=== PATIENT | female | born 1940 | race Asian ===

== ENCOUNTER 2019-02-25 00:08 | Inpatient (IN) | payer MEDICARE ==
[2019-02-25] VITALS (17 sets, daily range): BP systolic 126–172; BP diastolic 51–73
[~2019-02-25] VITALS: Ht 154.9 cm; Wt 72.6 kg
[2019-02-25] MEDS ORDERED: Isovue-300 100ml vial INJ PRN (00:15)
[2019-02-25 00:33] LABS: BASOPHILS % (AUTO) 0.8 % (0.0-2.0); EOSINOPHILS % (AUTO) 5.7 % (0.0-3.0); HEMATOCRIT 33.7 % (37.0-47.0); LYMPHOCYTES % (AUTO) 29.7 % (20.0-45.0); MEAN CORPUSCULAR VOLUME 89 FL (80-99); MONOCYTES % (AUTO) 7.1 % (1.0-10.0); NEUTROPHILS % (AUTO) 56.9 % (45.0-75.0); PLATELET COUNT 485 K/UL (150-450); RED BLOOD COUNT 3.79 M/UL (4.20-5.40); RED CELL DISTRIBUTION WIDTH 15.1 % (11.6-14.8); WHITE BLOOD COUNT 17.8 K/UL (4.8-10.8)
[2019-02-25 00:45] LABS: ANION GAP 12 mmol/L (5-15); BLOOD UREA NITROGEN 13 mg/dL (7-18); CALCIUM 9.5 MG/DL (8.5-10.1); CARBON DIOXIDE 26 MMOL/L (21-32); CHLORIDE 101 MMOL/L (98-107); CREATININE 0.7 MG/DL (0.55-1.30); SODIUM 139 MMOL/L (136-145)
[2019-02-25 00:46] LABS: APPEARANCE,URINE CLEAR; BILIRUBIN, URINE NEGATIVE (NEGATIVE); COLOR,URINE PALE YELLOW; GLUCOSE, URINE (UA) NEGATIVE (NEGATIVE); KETONES,URINE NEGATIVE (NEGATIVE); LEUKOCYTE ESTERASE ,URINE 3+ (NEGATIVE); NITRITE,URINE NEGATIVE (NEGATIVE); PH,URINE 6 (4.5-8.0); PROTEIN,URINE 1+ (NEGATIVE); UROBILINOGEN,URINE NORMAL MG/DL (0.0-1.0)
[2019-02-25 00:58] LABS: ALANINE AMINOTRANSFERASE 21 U/L (12-78); ALBUMIN 2.5 G/DL (3.4-5.0); ALBUMIN/GLOBULIN RATIO 0.4 (1.0-2.7); ALKALINE PHOSPHATASE 87 U/L (46-116); ASPARTATE AMINO TRANSFERASE 24 U/L (15-37); BILIRUBIN,TOTAL 0.4 MG/DL (0.2-1.0); CKMB 0.7 NG/ML (0.0-3.6); CREATINE KINASE 30 U/L (26-308)
[2019-02-25] MEDS ORDERED: cefTRIAXone 1 GM in NS 55 ML IVPB ONE (01:15)
[2019-02-25] MEDS ORDERED: PROTONIX20 MG GT (02:55)
[2019-02-25] MEDS ORDERED: SUCRALFATE1 GM/10 ML GT (02:55)
[2019-02-25] MEDS ORDERED: AMIODARONE HCL100 MG GT (02:55)
[2019-02-25] MEDS ORDERED: COMBIVENT RESPIM4 GM IH (02:55)
[2019-02-25] MEDS ORDERED: ACETAMINOPHEN325 M1 GT (02:55)
[2019-02-25] MEDS ORDERED: APRESOLINE10 MG GT (02:55)
[2019-02-25] MEDS ORDERED: AMLODIPINE BESYL5 MG GT (02:55)
[2019-02-25] MEDS ORDERED: MULTIVITAMINS1 EA13 GT (02:55)
[2019-02-25] MEDS ORDERED: ASCORBIC ACID500 MG GT (02:55)
--- NOTE | 2019-02-25 02:59 | Diagnostic Imaging Report ---
Clinical Indication: Abdominal distention for 3 days Technique: No oral contrast utilized, per emergency room physician request IV administration nonionic contrast. Venous phase spiral acquisition obtained through the abdomen and pelvis. Multiplanar reconstructions were generated. Total dose length product 898.21 mGycm. CTDIvol(s) 19.51 mGy. Dose reduction achieved using automated exposure control Comparison: none Findings: The colon is diffusely partially distended with gas and fluid, with a few intervening areas of normal caliber. There is a surgical anastomotic staple line in the ascending colon. There is free communication of the colon lumen with the lumen of the distal small bowel. The small bowel is diffusely distended with gas without any evidence of transition point. There is no normal caliber small bowel other than the proximal jejunum. There is a retroperitoneal collection which measures 4 cm transverse by approximately 1.4 cm AP by 11 cm craniocaudad. A pigtail catheter is located in the cephalad aspect of this collection. No bowel pneumatosis demonstrated. No free intraperitoneal gas. There is a gastrostomy in good position within the stomach. The distal esophagus and duodenum are unremarkable. The liver demonstrates a cyst in segment 3 that measures 2.5 cm diameter. A subcentimeter low-attenuation lesion is seen in segment 8 and another in segment one. The gallbladder, bile ducts, pancreas, spleen, adrenals, kidneys are all unremarkable. The bladder is empty, contains a Abdi catheter. Uterus and adnexal structures are unremarkable. No pelvic mass or adenopathy. The included lung bases demonstrate areas of atelectasis and consolidation and possibly some scarring. The bones demonstrate degenerative spondylosis changes. Impression: The colon is mostly distended with gas and fluid with areas of normal caliber, no definite obstructive lesion. There is diffuse marked distention of the small bowel with free communication of the distended distal small bowel lumen with the colon lumen. Findings are presumably functional in nature, as no obstructive lesion or transition point is demonstrated Evidence of prior proximal colectomy with ileocolic anastomosis Right lower quadrant retroperitoneal collection, with a pigtail drainage catheter at the cephalad aspect, consistent with a recently drained abscess. There may be a small amount of residual material within the collection Basilar or parenchymal atelectatic changes and possible consolidation Hepatic cyst. Hepatic subcentimeter low-attenuation lesions which are too small to characterize, most likely benign simple cysts. Other findings as noted, including gastrostomy, Abdi catheter, degenerative spondylosis This essentially agrees with the preliminary interpretation provided overnight by [facility] teleradiology service, with some additional findings. The CT scanner at [facility] is accredited by the [employer] and the scans are performed using protocols designed to limit radiation exposure to as low as reasonably achievable to attain images of sufficient resolution adequate for diagnostic evaluation.
[2019-02-25] MEDS ORDERED: Zosyn 3.375gm inj ONE (03:21)
--- NOTE | 2019-02-25 03:27 | Emergency Room Report ---
History of Present Illness General Chief Complaint: Fever Source: Medical Record, EMS Present Illness HPI 79-year-old female presents ED for evaluation. Brought in by EMS from senior care facility. Reportedly has fever x1 day. Abdominal distention. Trach/ vent with G-tube. Patient nonverbal at baseline. No signs of distress upon arrival. No reported shortness of breath nausea or vomiting. No other aggravating relieving factors. No other associated symptoms Allergies: Coded Allergies: No Known Allergies (Unverified , 02/25/19) Patient History Past Medical History: HTN, AFib, other - Gtube/trach Past Surgical History: none Pertinent Family History: none Social History: Denies: smoking, alcohol use, drug use Now: No Immunizations: UTD Reviewed Nursing Documentation: PMH: Agreed; PSxH: Agreed Nursing Documentation-PMH Past Medical History: No History, Except For Hx Cardiac Problems: Yes - AFIB Hx Hypertension: Yes Hx COPD: No - VENT DEPENDENT, RESP FAILURE, TRACHEOSTOM Hx Gastrointestinal Problems: Yes - GASTROSTOMY, UROGENITAL IMPLANT History Of Psychiatric Problem: No - PRESSURE ULCER OF SACRAL, RIGHT HEEL Review of Systems All Other Systems: limited Physical Exam Vital Signs Date Time Temp Pulse Resp B/P (MAP) Pulse Ox O2 Delivery O2 Flow Rate FiO2 02/25/19 00:03 99.1 95 28 147/74 (98) 100 Mechanical Ventilator 02/25/19 00:10 15.0 40 Sp02 EP Interpretation: reviewed, normal General Appearance: no apparent distress Head: normocephalic Eyes: bilateral eye normal inspection, bilateral eye PERRL ENT: hearing grossly normal, normal pharynx, no angioedema, normal voice Neck: full range of motion, supple/symm/no masses, tracheotomy Respiratory: chest non-tender, normal breath sounds, crackles, speaking full sentences Cardiovascular #1: regular rate, rhythm, no edema Gastrointestinal: distended, other - Gtube Rectal: deferred Genitourinary: no CVA tenderness Musculoskeletal: normal inspection Neurologic: other - nonverbal Psychiatric: other - nonverbal Skin: other - see nursing notes Lymphatic: normal inspection Medical Decision Making Diagnostic Impression: Primary Impression: UTI (urinary tract infection) Qualified Codes: N39.0 - Urinary tract infection, site not specified Additional Impressions: Abdominal distension Pneumonia Qualified Codes: J18.1 - Lobar pneumonia, unspecified organism Abdominal abscess ER Course hospital Course 79-year-old F presents to ED with abdominal distension, fever Differential diagnosis includes-appendicitis, cholecystitis, small bowel obstruction, gastritis, Clinical course Patient placed on stretcher. After initial history and physical I ordered labs , IV fluids, EKG, CXR and CT scan Labs - noted leukocytosis, K 3.0, , UA+ bacteria EKG - NSr, no acute ischemic changes interpreted by me CXR - LLL infiltrate CT - abscess in RLQ with pigtail adjacent. dilated loops - ileus vs ogilvies Antibiotics given. IV fluids given. Potassium repleted. Dr Stone contacted. Patient will be admitted to Dr Lr's service I feel this is a highly complex case requiring extensive working including EKG/ Rhythm strip, Xray/CT/US, Blood/urine lab work, repeat exams while in ED, and administration of strong opiates/narcotics for pain control, admission to hospital or close patient follow up. Diagnosis - UTI, abdominal distension, pneumonia, abdominal abscess admitted to SDU in serious condition Labs Test 02/25/19 00:10 02/25/19 00:30 White Blood Count 17.8 K/UL (4.8-10.8) Red Blood Count 3.79 M/UL (4.20-5.40) Hemoglobin 11.0 G/DL (12.0-16.0) Hematocrit 33.7 % (37.0-47.0) Mean Corpuscular Volume 89 FL (80-99) Mean Corpuscular Hemoglobin 29.1 PG (27.0-31.0) Mean Corpuscular Hemoglobin Concent 32.8 G/DL (32.0-36.0) Red Cell Distribution Width 15.1 % (11.6-14.8) Platelet Count 485 K/UL (150-450) Mean Platelet Volume 4.8 FL (6.5-10.1) Neutrophils (%) (Auto) 56.9 % (45.0-75.0) Lymphocytes (%) (Auto) 29.7 % (20.0-45.0) Monocytes (%) (Auto) 7.1 % (1.0-10.0) Eosinophils (%) (Auto) 5.7 % (0.0-3.0) Basophils (%) (Auto) 0.8 % (0.0-2.0) Sodium Level 139 MMOL/L (136-145) Potassium Level 3.0 MMOL/L (3.5-5.1) Chloride Level 101 MMOL/L (98-107) Carbon Dioxide Level 26 MMOL/L (21-32) Anion Gap 12 mmol/L (5-15) Blood Urea Nitrogen 13 mg/dL (7-18) Creatinine 0.7 MG/DL (0.55-1.30) Estimat Glomerular Filtration Rate mL/min (>60) Glucose Level 112 MG/DL (74-106) Lactic Acid Level 1.40 mmol/L (0.4-2.0) Calcium Level 9.5 MG/DL (8.5-10.1) Total Bilirubin 0.4 MG/DL (0.2-1.0) Aspartate Amino Transf (AST/SGOT) 24 U/L (15-37) Alanine Aminotransferase (ALT/SGPT) 21 U/L (12-78) Alkaline Phosphatase 87 U/L (46-116) Total Creatine Kinase 30 U/L (26-308) Creatine Kinase MB 0.7 NG/ML (0.0-3.6) Creatine Kinase MB Relative Index 2.3 Troponin I 0.000 ng/mL (0.000-0.056) Pro-B-Type Natriuretic Peptide 349 pg/mL (0-125) Total Protein 8.5 G/DL (6.4-8.2) Albumin 2.5 G/DL (3.4-5.0) Globulin 6.0 g/dL Albumin/Globulin Ratio 0.4 (1.0-2.7) Urine Color Pale yellow Urine Appearance Clear Urine pH 6 (4.5-8.0) Urine Specific [place] 1.010 (1.005-1.035) Urine Protein 1+ (NEGATIVE) Urine Glucose (UA) Negative (NEGATIVE) Urine Ketones Negative (NEGATIVE) Urine Blood Negative (NEGATIVE) Urine Nitrite Negative (NEGATIVE) Urine Bilirubin Negative (NEGATIVE) Urine Urobilinogen Normal MG/DL (0.0-1.0) Urine Leukocyte Esterase 3+ (NEGATIVE) Urine RBC 0-2 /HPF (0 - 2) Urine WBC 40-60 /HPF (0 - 2) Urine Squamous Epithelial Cells Few /LPF (NONE/OCC) Urine Bacteria Moderate /HPF (NONE) EKG Diagnostic Results Rate: normal Rhythm: NSR ST Segments: no acute changes ASA given to the pt in ED: No Rhythm Strip Diag. Results EP Interpretation: yes Rhythm: NSR, no PVC's, no ectopy Chest X-Ray Diagnostic Results Chest X-Ray Diagnostic Results : Chest X-Ray Ordered: Yes # of Views/Limited/Complete: 1 View Indication: Other EP Interpretation: Yes Interpretation: no pneumothorax, other - consolidation LLL Impression: Other - pneumonia Electronically Signed by: Electronically signed by Tony Wells MD CT/MRI/US Diagnostic Results CT/MRI/US Diagnostic Results : Imaging Test Ordered: CT A/P Impression 7 x 1.7 x 4.4 cm abscess in the right lower quadrant. The tip of the pigtail catheter is just superior to this fluid collection. Diffusely dilated loops of colon, with some areas of narrowing. May represent ileus, also consider Jason's syndrome. No definite small bowel obstruction. G-tube is in place. Last Vital Signs Date Time Temp Pulse Resp B/P (MAP) Pulse Ox O2 Delivery O2 Flow Rate FiO2 02/25/19 03:14 98.5 83 19 126/51 100 Trach Collar 15.0 40 Status: improved Disposition: ADMITTED INPATIENT Condition: Serious Referrals: Kike Lr MD (PCP) Tony Wells MD Feb 25, 2019 03:27
[2019-02-25] MEDS ORDERED: Piperacillin/Tazobactam 3.375 GM in NS 110 ML IVPB ONE (03:30)
[2019-02-25] MEDS ORDERED: IPRAT-ALBUT 0.5-3 ML IH (03:57)
[2019-02-25] MEDS ORDERED: HYDRALAZINE HCL10 MG GT (05:11)
[2019-02-25] MEDS ORDERED: DUONEB 0.5-3(2.53 ML HHN (05:11)
[2019-02-25] MEDS ORDERED: PROTONIX40 M2 GT (05:11)
--- NOTE | 2019-02-25 07:23 | Pulmonology Progress Note ---
Assessment/Plan Assessment/Plan Pulmonary Consultation HPI Patient is an 79-year old woman admitted from a snf facility. Has had fevers for 1 day. Abdominal distention. Patient has a history of trach/ vent with G-tube. Patient nonverbal at baseline. No signs of distress upon arrival. No reported shortness of breath nausea or vomiting. No other associated symptoms Allergies: No Known Allergies Past Medical History: Hypertension, atrial fibrillation, respiratory failure, Gtube/trach, urogenital implant, decubitus ulcers All Other Systems: limited Physical Exam Vital Signs Noted Date Time Temp Pulse Resp B/P (MAP) Pulse Ox O2 Delivery O2 Flow Rate FiO2 02/25/19 00:03 99.1 95 28 147/74 (98) 100 Mechanical Ventilator 02/25/19 00:10 15.0 40 General Appearance: chronically ill appearing, no apparent distress Head: normocephalic Eyes: bilateral eye normal inspection, bilateral eye PERRL ENT: normal pharynx, moist mm Neck: full range of motion, supple/symm/no masses, tracheotomy, no LN Respiratory: chest non-tender, normal breath sounds, occasional rhonchi Cardiovascular: regular rate, rhythm, no edema Gastrointestinal: distended, other - Gtube Genitourinary: no CVA tenderness Musculoskeletal: weak Neurologic: no focal signs, no seizures Impression: Abdominal abscess, drain not in abscess cavity UTI (urinary tract infection) Abdominal distension Pneumonia Hypertension Atrial fibrillation Respiratory failure Gtube/trach Urogenital implant Decubitus ulcers Plan IV antibiotics SERVICES DELIVERY DRIVER medications Wound team IR repositioning of abscess drain Supplement K Monitor labs ABG AC ventilator settings Dr Stone contacted by ED. Labs Test 02/25/19 00:10 02/25/19 00:30 White Blood Count 17.8 K/UL (4.8-10.8) Red Blood Count 3.79 M/UL (4.20-5.40) Hemoglobin 11.0 G/DL (12.0-16.0) Hematocrit 33.7 % (37.0-47.0) Mean Corpuscular Volume 89 FL (80-99) Mean Corpuscular Hemoglobin 29.1 PG (27.0-31.0) Mean Corpuscular Hemoglobin Concent 32.8 G/DL (32.0-36.0) Red Cell Distribution Width 15.1 % (11.6-14.8) Platelet Count 485 K/UL (150-450) Mean Platelet Volume 4.8 FL (6.5-10.1) Neutrophils (%) (Auto) 56.9 % (45.0-75.0) Lymphocytes (%) (Auto) 29.7 % (20.0-45.0) Monocytes (%) (Auto) 7.1 % (1.0-10.0) Eosinophils (%) (Auto) 5.7 % (0.0-3.0) Basophils (%) (Auto) 0.8 % (0.0-2.0) Sodium Level 139 MMOL/L (136-145) Potassium Level 3.0 MMOL/L (3.5-5.1) Chloride Level 101 MMOL/L (98-107) Carbon Dioxide Level 26 MMOL/L (21-32) Anion Gap 12 mmol/L (5-15) Blood Urea Nitrogen 13 mg/dL (7-18) Creatinine 0.7 MG/DL (0.55-1.30) Estimat Glomerular Filtration Rate mL/min (>60) Glucose Level 112 MG/DL (74-106) Lactic Acid Level 1.40 mmol/L (0.4-2.0) Calcium Level 9.5 MG/DL (8.5-10.1) Total Bilirubin 0.4 MG/DL (0.2-1.0) Aspartate Amino Transf (AST/SGOT) 24 U/L (15-37) Alanine Aminotransferase (ALT/SGPT) 21 U/L (12-78) Alkaline Phosphatase 87 U/L (46-116) Total Creatine Kinase 30 U/L (26-308) Creatine Kinase MB 0.7 NG/ML (0.0-3.6) Creatine Kinase MB Relative Index 2.3 Troponin I 0.000 ng/mL (0.000-0.056) Pro-B-Type Natriuretic Peptide 349 pg/mL (0-125) Total Protein 8.5 G/DL (6.4-8.2) Albumin 2.5 G/DL (3.4-5.0) Globulin 6.0 g/dL Albumin/Globulin Ratio 0.4 (1.0-2.7) Urine Color Pale yellow Urine Appearance Clear Urine pH 6 (4.5-8.0) Urine Specific [place] 1.010 (1.005-1.035) Urine Protein 1+ (NEGATIVE) Urine Glucose (UA) Negative (NEGATIVE) Urine Ketones Negative (NEGATIVE) Urine Blood Negative (NEGATIVE) Urine Nitrite Negative (NEGATIVE) Urine Bilirubin Negative (NEGATIVE) Urine Urobilinogen Normal MG/DL (0.0-1.0) Urine Leukocyte Esterase 3+ (NEGATIVE) Urine RBC 0-2 /HPF (0 - 2) Urine WBC 40-60 /HPF (0 - 2) Urine Squamous Epithelial Cells Few /LPF (NONE/OCC) Urine Bacteria Moderate /HPF (NONE) EKG: Rate: normal Rhythm: NSR ST Segments: no acute changes Chest X-Ray: no pneumothorax, other - consolidation LLL CT Abdomen and Pelvis: 7 x 1.7 x 4.4 cm abscess in the right lower quadrant. The tip of the pigtail catheter is just superior to this fluid collection. Diffusely dilated loops of colon, with some areas of narrowing. May represent ileus, also consider Jason's syndrome. No definite small bowel obstruction. G-tube is in place. Subjective ROS Limited/Unobtainable: No Constitutional: Reports: fever Allergies: Coded Allergies: No Known Allergies (Unverified , 02/25/19) Objective Last 24 Hour Vital Signs Date Time Temp Pulse Resp B/P (MAP) Pulse Ox O2 Delivery O2 Flow Rate FiO2 02/25/19 05:05 81 19 40 02/25/19 04:39 81 02/25/19 04:30 Mechanical Ventilator 02/25/19 04:30 40 02/25/19 04:15 99.5 81 137/60 (85) 02/25/19 04:10 98.8 87 18 137/67 100 Trach Collar 15.0 40 02/25/19 03:14 98.5 83 19 126/51 100 Trach Collar 15.0 40 02/25/19 02:30 82 22 40 02/25/19 00:10 91 18 02/25/19 00:10 78 25 100 Mechanical Ventilator 15.0 40 02/25/19 00:10 78 25 40 02/25/19 00:10 98.7 96 18 147/56 100 Trach Collar 15.0 40 02/25/19 00:03 99.1 95 28 147/74 (98) 100 Mechanical Ventilator Intake and Output 02/24/19 02/25/19 19:00 07:00 Intake Total 1947.55 ml Output Total 805 ml Balance 1142.55 ml Intake Oral 0 ml IV Total 1947.55 ml Output Urine Total 800 ml Drainage Total 5 ml # Bowel Movements 1 Laboratory Tests 02/25/19 00:10: White Blood Count 17.8H, Red Blood Count 3.79L, Hemoglobin 11.0L, Hematocrit 33.7L, Mean Corpuscular Volume 89, Mean Corpuscular Hemoglobin 29.1, Mean Corpuscular Hemoglobin Concent 32.8, Red Cell Distribution Width 15.1H, Platelet Count 485H, Mean Platelet Volume 4.8L, Neutrophils (%) (Auto) 56.9, Lymphocytes (%) (Auto) 29.7, Monocytes (%) (Auto) 7.1, Eosinophils (%) (Auto) 5.7H, Basophils (%) (Auto) 0.8, Sodium Level 139, Potassium Level 3.0L, Chloride Level 101, Carbon Dioxide Level 26, Anion Gap 12, Blood Urea Nitrogen 13, Creatinine 0.7, Estimat Glomerular Filtration Rate , Glucose Level 112H, Lactic Acid Level 1.40, Calcium Level 9.5, Total Bilirubin 0.4, Aspartate Amino Transf (AST/SGOT) 24, Alanine Aminotransferase (ALT/SGPT) 21, Alkaline Phosphatase 87, Total Creatine Kinase 30, Creatine Kinase MB 0.7, Creatine Kinase MB Relative Index 2.3, Troponin I 0.000, Pro-B-Type Natriuretic Peptide 349H, Total Protein 8.5H, Albumin 2.5L, Globulin 6.0, Albumin/Globulin Ratio 0.4L 02/25/19 00:30: Urine Color Pale yellow, Urine Appearance Clear, Urine pH 6, Urine Specific [place] 1.010, Urine Protein 1+H, Urine Glucose (UA) Negative, Urine Ketones Negative, Urine Blood Negative, Urine Nitrite Negative, Urine Bilirubin Negative , Urine Urobilinogen Normal, Urine Leukocyte Esterase 3+H, Urine RBC 0-2, Urine WBC 40-60H, Urine Squamous Epithelial Cells Few, Urine Bacteria ModerateH Current Medications Medications (Trade) Dose Ordered Sig/Oz Route PRN Reason Start Time Stop Time Status Last Admin Dose Admin Acetaminophen (Tylenol) 650 mg Q4H PRN GT Mild Pain/Temp > 100.5 02/25/19 07:00 03/27/19 06:59 UNV Iopamidol (Isovue-300 100ml) 100 ml NOW PRN INJ Radiology Procedure 02/25/19 00:15 Piperacillin Sod/ Tazobactam Sod 3.375 gm/Sodium Chloride 110 ml @ 27.5 mls/hr Q6HR IVPB 02/25/19 12:00 03/04/19 11:59 UNV Vancomycin HCl (Vanco rx to dose) 1 ea DAILY PRN MISC Per rx protocol 02/25/19 07:00 03/27/19 06:59 UNV Raúl Ledbetter MD Feb 25, 2019 07:23
[2019-02-25] MEDS ORDERED: HydrALAZINE 10mg Tab GT PRN ×2 (07:45→08:15)
[2019-02-25] MEDS ORDERED: Albuterol/Ipratropium 3ml neb HHN PRN (07:45)
[2019-02-25] MEDS ORDERED: Lidocaine 1% Plain 30 ml INJ PRN (08:15)
--- NOTE | 2019-02-25 08:59 | History and Physical Report ---
DATE OF ADMISSION: 02/25/2019 CHIEF COMPLAINT: Fevers and abdominal distention. HISTORY OF PRESENT ILLNESS: The patient is an 79-year-old female. She has a history of chronic respiratory failure, tracheostomy, and G-tube. She has a prior history of an abscess and has a drain in the right upper quadrant. [facility] with complaints of fevers and elevated white count. On evaluation in the emergency room, the patient was noted to have a white count of 18,000. CT scan of the abdomen showed diffusely dilated loops of colon, 7 x 4 cm abscess in the right upper quadrant. The tip of the pigtail catheter was superior to the fluid collection. The patient is now admitted for further evaluation and care. PAST MEDICAL HISTORY: As above. PAST SURGICAL HISTORY: Includes a trach and a G-tube. CURRENT MEDICATIONS: Reconciled and reviewed. ALLERGIES: None. FAMILY HISTORY: None. SOCIAL HISTORY: There is no known history of tobacco, ethanol, or drugs. The patient is unable to provide any history, as she is poorly responsive at baseline. PHYSICAL EXAMINATION: VITAL SIGNS: Temperature 99.5, pulse 81, respirations 19, and blood pressure 137/60. GENERAL: The patient is a chronically ill-appearing female, in no apparent distress. NECK: Trach site is clean, in midline. HEART: Regular rate and rhythm. LUNGS: Clear. ABDOMEN: Soft, slightly distended. There is a drain in the right upper quadrant noted draining serosanguineous fluid. EXTREMITIES: Without clubbing or cyanosis. LABORATORY DATA: Potassium is 3. White count 18,000. ASSESSMENT: This is an 79-year-old female admitted with complaints of fevers and abdominal distention. She has dilated loops noted on the CAT scan and her abscess with a drain appears to be slightly dislodged. PLAN: We will place a pigtail catheter for abscess, IV antibiotics. Follow up pending cultures. NPO, on IV hydration. Serial abdominal exams. Consider GI evaluation. Efrain Radford M.D. DR: MIGUEL JOB#: [id number] CC:
[2019-02-25] MEDS: Ascorbic Acid 500mg tab GT SCH (09:34)
[2019-02-25] MEDS ORDERED: Vancomycin 1.25gm Premix IVPB ONE (10:00)
--- NOTE | 2019-02-25 10:54 | CDS Physician Query ---
Clarification is required for compliance, coding accuracy, and to reflect severity of illness for this patient Dear Raúl Enrique Date: 02/25/2019 According to the clinical indications above, please indicate below the condition In Progress notes: Abdominal abscess, PNA, UTI Labs: WBC: 17.8 Tx: IV VANCOMYCIN, IV Piperacillin/Tazobactam PHYSICIAN RESPONSE: X Sepsis SIRS SIRS with organ dysfunction Septic Shock Not applicable Other: Present on Admission: Yes X No Clinically Undetermined Physician signature Date Please also document in your Progress Notes and/or Discharge Summary and indicate if the condition was present on admission. VICKEYD
--- NOTE | 2019-02-25 12:43 | Diagnostic Imaging Report ---
Indication: Shortness of breath Technique: One view of the chest Comparison: none Findings: There is a tracheostomy. There is bilateral interstitial disease, diffuse on the left and basilar on the right. Heart size is normal. Pleural spaces are clear. No focal airspace consolidation Impression: Bilateral interstitial disease, could be on the basis of senescent changes and fibrosis but could also indicate pulmonary edema or atypical pneumonia Tracheostomy
[2019-02-25] MEDS ORDERED: D5 1/2NS 1,000 ML IV SCH (13:00)
[2019-02-25] MEDS: Piperacillin/Tazobactam 3.375 GM in NS 110 ML IVPB SCH ×2 (13:15→22:15)
[2019-02-25] MEDS: Amiodarone 200mg tab GT SCH ×2 (13:15→22:15)
[2019-02-25] MEDS ORDERED: fentaNYL 100 mcg/2 mL IV ONE (13:30)
[2019-02-25] MEDS ORDERED: Midazolam 2mg/2ml Inj ONE (13:30)
--- NOTE | 2019-02-25 15:37 | Pre-Procedure Note/Attestation ---
Pre-Procedure Note/Attestation Complete Prior to Procedure Planned Procedure: right Procedure Narrative: Drainage catheter exchange Indications for Procedure Pre-Operative Diagnosis: Retroperitoneal abscess R Attestation I attest that I discussed the nature of the procedure; its benefits; risks and complications; and alternatives (and the risks and benefits of such alternatives ), prior to the procedure, with the patient (or the patient's legal patient admitting representative). I attest that, if there was a reasonable possibility of needing a blood transfusion, the patient (or the patient's legal patient admitting representative) was given the [facility] standardized written summary, pursuant to the [place] Blood Safety Act ([place] Health and Safety Code # 1645, as amended). I attest that I re-evaluated the patient just prior to the surgery and that there has been no change in the patient's H&P, except as documented below: Pop Zepeda MD Feb 25, 2019 15:37
--- NOTE | 2019-02-25 15:46 | Brief Operative Note ---
Immediate Post Operative Note Operative Note Pre-op Diagnosis: Retroperitoneal abscess R Procedure: drainage catheter exchange Post-op Diagnosis: same Surgeon: Ang Campos Anesthesia: local Specimen: yes - small amt. bloody fluid sent to lab Complications: none Fluids: none Drains: other - 8.5 F pigtail Implant(s) used?: No Pop Campos MD Feb 25, 2019 15:46
--- NOTE | 2019-02-25 17:34 | Diagnostic Imaging Report ---
Indication: Abdominal abscess on prior CT scan Technique: Informed consent obtained prior concern of the procedure. Procedure timeout performed. Prior imaging studies reviewed. Spiral localizing acquisitions obtained through the pelvis. Intended puncture site marked, sterilely prepped and draped. Local anesthesia with 1% lidocaine. Previous drainage catheter was cut, and a guidewire was inserted through it and the drain was removed. Attempts made at manipulating a guidewire and a new drainage catheters deep within the abscess is possible. The catheter was forcibly aspirated, yielding only a small amount of bloody fluid. The catheter was placed to UreSil wall drainage. Specimen was sent to the lab for microbial analysis. The patient tolerated the procedure well, without immediate complication. Total dose length product 1940 mGycm. CTDIvol(s) 17, 15, 18 x 4 mGy. Radiation dose was minimized using automated exposure control Comparison: Reference made to CT scan of 13 hours earlier Findings: Completion image demonstrates satisfactory position of the new drainage catheter note that the inferior aspect of the collection could not be accessed. However, it is not clear that this either represents fluid, is represents scar tissue. Impression: Successful replacement of right retroperitoneal collection drainage catheter, placed slightly deeper into the collection and previously. Only a scant amount of bloody fluid aspirated. The specimen was sent to the lab Findings and procedure discussed by phone with Dr. Ledbetter The CT scanner at [facility] is accredited by the [employer] and the scans are performed using protocols designed to limit radiation exposure to as low as reasonably achievable to attain images of sufficient resolution adequate for diagnostic evaluation.
--- NOTE | 2019-02-25 19:32 | Consultation ---
History of Present Illness General Chief Complaint: Fever Present Illness HPI 79-year-old female presented to ED at [facility] for evaluation and was [facility]. Pre report patient had fever x1 day. Abdominal distention. Trach/vent with G-tube. Patient nonverbal at baseline. No signs of distress upon arrival. lab noted. CT as below. surgery called to evaluate. patient seen, chart reviewed, patient examined. patient with catheter and unsure duration or why placed. Allergies: Coded Allergies: No Known Allergies (Unverified , 02/25/19) Medication History Scheduled Amiodarone Hcl (Amiodarone Hcl), 200 MG GT EVERY 8 HOURS, (Reported) Amlodipine Besylate* (Amlodipine Besylate*), 5 MG GT BID, (Reported) Ascorbic Acid* (Ascorbic Acid*), 5 ML GT DAILY, (Reported) Multivitamin with Minerals (Multivitamins with Minerals), 5 ML GT DAILY, ( Reported) Pantoprazole Sodium (Protonix), 40 MG GT Q12HR, (Reported) Sucralfate (Sucralfate), 1 GM GT Q6H, (Reported) Scheduled PRN Acetaminophen* (Acetaminophen 325MG Tablet*), 650 MG GT Q6H PRN for Mild Pain/ Temp > 100.5, (Reported) Hydralazine Hcl* (Hydralazine Hcl*), 10 MG GT EVERY 6 HOURS PRN for For High Blood Pressure, (Reported) Ipratropium/Albuterol Sulfate (DuoNeb 0.5-3(2.5)mg/3ml), 3 ML HHN Q4HR PRN for Shortness of Breath, (Reported) Patient History Limited by: medical condition History Provided By: Medical Record, PMD Healthcare decision maker Resuscitation status Do Not Resuscitate Advanced Directive on File Past Medical/Surgical History Past Medical/Surgical History: (1) UTI (urinary tract infection) (2) Pneumonia (3) Abdominal distension (4) Abdominal abscess (5) Decubitus skin ulcer Review of Systems ROS Narrative cannot obtain given medical condition Physical Exam General Appearance: no apparent distress Lines, tubes and drains: peripheral HEENT: normocephalic Neck: other Respiratory/Chest: no respiratory distress, no accessory muscle use, decreased breath sounds, other Cardiovascular/Chest: regular rhythm Abdomen: non tender, soft, decreased bowel sounds, distended Extremities: normal inspection, other Skin Exam: warm/dry Neurologic: unresponsiveness Last 24 Hour Vital Signs Date Time Temp Pulse Resp B/P (MAP) Pulse Ox O2 Delivery O2 Flow Rate FiO2 02/25/19 16:53 83 18 40 02/25/19 16:20 87 20 02/25/19 16:00 98.1 84 137/65 (89) 02/25/19 16:00 40 02/25/19 16:00 88 02/25/19 16:00 Mechanical Ventilator 02/25/19 15:50 86 142/62 (88) 02/25/19 15:45 88 157/62 (93) 02/25/19 15:40 89 170/63 (98) 02/25/19 15:35 89 167/69 (101) 02/25/19 15:30 88 172/71 (104) 02/25/19 15:25 83 153/67 (95) 02/25/19 15:20 82 162/73 (102) 02/25/19 15:15 98.8 87 161/67 (98) 02/25/19 15:05 98.2 02/25/19 14:47 85 21 40 02/25/19 13:26 82 16 40 02/25/19 12:00 99.0 88 134/57 (82) 02/25/19 12:00 82 02/25/19 12:00 Mechanical Ventilator 02/25/19 12:00 40 02/25/19 11:29 83 19 40 02/25/19 09:34 80 133/60 02/25/19 09:20 80 20 40 02/25/19 08:00 75 02/25/19 08:00 Mechanical Ventilator 02/25/19 08:00 98.4 78 133/60 (84) 02/25/19 07:39 85 22 40 02/25/19 05:05 81 19 40 02/25/19 04:39 81 02/25/19 04:30 Mechanical Ventilator 02/25/19 04:30 40 02/25/19 04:15 99.5 81 137/60 (85) 02/25/19 04:10 98.8 87 18 137/67 100 Trach Collar 15.0 40 02/25/19 03:14 98.5 83 19 126/51 100 Trach Collar 15.0 40 02/25/19 02:30 82 22 40 02/25/19 00:10 91 18 02/25/19 00:10 78 25 100 Mechanical Ventilator 15.0 40 02/25/19 00:10 78 25 40 02/25/19 00:10 98.7 96 18 147/56 100 Trach Collar 15.0 40 02/25/19 00:03 99.1 95 28 147/74 (98) 100 Mechanical Ventilator Intake and Output 02/24/19 02/25/19 19:00 07:00 Intake Total 1947.55 ml Output Total 805 ml Balance 1142.55 ml Intake Oral 0 ml IV Total 1947.55 ml Output Urine Total 800 ml Drainage Total 5 ml # Bowel Movements 1 Laboratory Tests Test 02/25/19 00:10 02/25/19 00:30 02/25/19 06:53 02/25/19 07:45 White Blood Count 17.8 K/UL (4.8-10.8) H Red Blood Count 3.79 M/UL (4.20-5.40) L Hemoglobin 11.0 G/DL (12.0-16.0) L Hematocrit 33.7 % (37.0-47.0) L Mean Corpuscular Volume 89 FL (80-99) Mean Corpuscular Hemoglobin 29.1 PG (27.0-31.0) Mean Corpuscular Hemoglobin Concent 32.8 G/DL (32.0-36.0) Red Cell Distribution Width 15.1 % (11.6-14.8) H Platelet Count 485 K/UL (150-450) H Mean Platelet Volume 4.8 FL (6.5-10.1) L Neutrophils (%) (Auto) 56.9 % (45.0-75.0) Lymphocytes (%) (Auto) 29.7 % (20.0-45.0) Monocytes (%) (Auto) 7.1 % (1.0-10.0) Eosinophils (%) (Auto) 5.7 % (0.0-3.0) H Basophils (%) (Auto) 0.8 % (0.0-2.0) Sodium Level 139 MMOL/L (136-145) Potassium Level 3.0 MMOL/L (3.5-5.1) L Chloride Level 101 MMOL/L (98-107) Carbon Dioxide Level 26 MMOL/L (21-32) Anion Gap 12 mmol/L (5-15) Blood Urea Nitrogen 13 mg/dL (7-18) Creatinine 0.7 MG/DL (0.55-1.30) Estimat Glomerular Filtration Rate mL/min (>60) Glucose Level 112 MG/DL (74-106) H Lactic Acid Level 1.40 mmol/L (0.4-2.0) Calcium Level 9.5 MG/DL (8.5-10.1) Total Bilirubin 0.4 MG/DL (0.2-1.0) Aspartate Amino Transf (AST/SGOT) 24 U/L (15-37) Alanine Aminotransferase (ALT/SGPT) 21 U/L (12-78) Alkaline Phosphatase 87 U/L (46-116) Total Creatine Kinase 30 U/L (26-308) Creatine Kinase MB 0.7 NG/ML (0.0-3.6) Creatine Kinase MB Relative Index 2.3 Troponin I 0.000 ng/mL (0.000-0.056) Pro-B-Type Natriuretic Peptide 349 pg/mL (0-125) H Total Protein 8.5 G/DL (6.4-8.2) H Albumin 2.5 G/DL (3.4-5.0) L Globulin 6.0 g/dL Albumin/Globulin Ratio 0.4 (1.0-2.7) L Urine Color Pale yellow Urine Appearance Clear Urine pH 6 (4.5-8.0) Urine Specific Davidson 1.010 (1.005-1.035) Urine Protein 1+ (NEGATIVE) H Urine Glucose (UA) Negative (NEGATIVE) Urine Ketones Negative (NEGATIVE) Urine Blood Negative (NEGATIVE) Urine Nitrite Negative (NEGATIVE) Urine Bilirubin Negative (NEGATIVE) Urine Urobilinogen Normal MG/DL (0.0-1.0) Urine Leukocyte Esterase 3+ (NEGATIVE) H Urine RBC 0-2 /HPF (0 - 2) Urine WBC 40-60 /HPF (0 - 2) H Urine Squamous Epithelial Cells Few /LPF (NONE/OCC) Urine Bacteria Moderate /HPF (NONE) H Arterial Blood pH 7.471 (7.350-7.450) Arterial Blood Partial Pressure CO2 34.3 mmHg (35.0-45.0) L Arterial Blood Partial Pressure O2 115.0 mmHg (75.0-100.0) H Arterial Blood HCO3 24.0 mmol/L (22.0-26.0) Arterial Blood Oxygen Saturation 98.1 % (95-100) Arterial Blood Base Excess 1.1 (-2-2) Jorge Luis Test Positive Prothrombin Time 11.0 SEC (9.30-11.50) Prothromb Time International Ratio 1.0 (0.9-1.1) Activated Partial Thromboplast Time 26 SEC (23-33) Height (Feet): 5 Height (Inches): 1.00 Weight (Pounds): 136 Medications Current Medications Medications (Trade) Dose Ordered Sig/Oz Route PRN Reason Start Time Stop Time Status Last Admin Dose Admin Acetaminophen (Tylenol) 650 mg Q4H PRN GT Mild Pain/Temp > 100.5 02/25/19 07:00 03/27/19 06:59 Al Hydroxide/Mg Hydroxide (Mylanta) 30 ml Q4H PRN ORAL dyspepsia 02/25/19 07:45 03/27/19 07:44 Albuterol/ Ipratropium (Albuterol/ Ipratropium) 3 ml Q4H PRN HHN Shortness of Breath 02/25/19 07:45 03/02/19 07:44 Amiodarone HCl (Cordarone) 200 mg EVERY 8 HOURS GT 02/25/19 14:00 03/27/19 13:59 02/25/19 13:15 Amlodipine Besylate (Norvasc) 5 mg Q12HR GT 02/25/19 09:00 03/27/19 08:59 02/25/19 09:34 Ascorbic Acid (Vitamin C) 500 mg DAILY GT 02/25/19 09:00 03/27/19 08:59 02/25/19 09:34 Heparin Sodium (Porcine) (Heparin 5000 units/ml) 5,000 units EVERY 12 HOURS SUBQ 02/25/19 21:00 03/27/19 20:59 Hydralazine HCl (Apresoline) 10 mg Q6H PRN GT For High Blood Pressure 02/25/19 08:15 03/27/19 08:14 Iopamidol (Isovue-300 100ml) 100 ml NOW PRN INJ Radiology Procedure 02/25/19 00:15 Lansoprazole (Prevacid) 30 mg DAILY GT 02/25/19 09:00 9/22/19 08:59 02/25/19 09:33 Lidocaine HCl (Xylocaine 1% 30ml) 30 ml ONCE PRN INJ IR procedure 02/25/19 08:15 02/26/19 18:00 Piperacillin Sod/ Tazobactam Sod 3.375 gm/Sodium Chloride 110 ml @ 27.5 mls/hr Q8HR IVPB 02/25/19 14:00 03/04/19 13:59 02/25/19 13:15 Vancomycin HCl (Vanco rx to dose) 1 ea DAILY PRN MISC Per rx protocol 02/25/19 07:00 03/27/19 06:59 Vancomycin HCl 1 gm/Dextrose 275 ml @ 183.708 mls/hr Q24H IVPB 02/26/19 10:00 03/03/19 09:59 Assessment/Plan Problem List: (1) Abdominal distension Assessment & Plan: The colon is mostly distended with gas and fluid with areas of normal caliber, no definite obstructive lesion. There is diffuse marked distention of the small bowel with free communication of the distended distal small bowel lumen with the colon lumen. Findings are presumably functional in nature, as no obstructive lesion or transition point is demonstrated Evidence of prior proximal colectomy with ileocolic anastomosis Right lower quadrant retroperitoneal collection, with a pigtail drainage catheter at the cephalad aspect, consistent with a recently drained abscess. There may be a small amount of residual material within the collection Basilar or parenchymal atelectatic changes and possible consolidation Hepatic cyst. Hepatic subcentimeter low-attenuation lesions which are too small to characterize, most likely benign simple cysts. Other findings as noted, including gastrostomy, Abdi catheter, degenerative spondylosis ICD Codes: R14.0 - Abdominal distension (gaseous) SNOMED: 97017939 (2) Abdominal abscess Assessment & Plan: Findings: Completion image demonstrates satisfactory position of the new drainage catheter note that the inferior aspect of the collection could not be accessed. However, it is not clear that this either represents fluid, is represents scar tissue. Impression: Successful replacement of right retroperitoneal collection drainage catheter, placed slightly deeper into the collection and previously. Only a scant amount of bloody fluid aspirated. The specimen was sent to the lab SNOMED: [id number] (3) Decubitus skin ulcer Assessment & Plan: Pt presented on admission with open DTPI sacrum. Multiple open wounds within base of wound with trace amt of slough at sacrococcygeal area ,surrounding dark and indurated borders.Non-blanching erythema periwound. (L) 7cm x (W)7.5cm x (D)0.2cm. Non-blanchable erythema without induration/fluctuance R and L heels. Skin Assessed under trach collar. Erythema noted to R side of neck but skin is otherwise intact. Tx.Plan: Cleanse Sacral wound with saline. Apply Therahoney. Apply Moisture Barrier Paste periwound. Cover with Optifoam drsg. Change every 3 days and prn. Apply Cavilon Skin Barrier to both heels.Cover with Optifoam drsg.Change every 7 days and prn. APM/CHELSEA Mattress overlay. Reposition at least every 2hours and prn. Off-load heels with pillow. ICD Codes: L89.90 - Pressure ulcer of unspecified site, unspecified stage SNOMED: [id number] Junior Stone Feb 25, 2019 19:31
[2019-02-25] MEDS: Heparin 5000 units/ml inj SUBQ SCH (21:13)
[2019-02-26] VITALS: BP 138/69
[2019-02-26 04:00] VITALS: BP 126/54
[2019-02-26] MEDS: Amiodarone 200mg tab GT SCH ×3 (06:16→22:00)
[2019-02-26] MEDS: Piperacillin/Tazobactam 3.375 GM in NS 110 ML IVPB SCH ×3 (06:17→22:00)
[2019-02-26 06:22] LABS: BASOPHILS % (AUTO) 0.5 % (0.0-2.0); EOSINOPHILS % (AUTO) 8.3 % (0.0-3.0); HEMATOCRIT 29.5 % (37.0-47.0); HEMOGLOBIN 9.6 G/DL (12.0-16.0); LYMPHOCYTES % (AUTO) 14.2 % (20.0-45.0); MEAN CORPUSCULAR VOLUME 90 FL (80-99); MONOCYTES % (AUTO) 6.3 % (1.0-10.0); NEUTROPHILS % (AUTO) 70.7 % (45.0-75.0); PLATELET COUNT 341 K/UL (150-450); RED BLOOD COUNT 3.27 M/UL (4.20-5.40); RED CELL DISTRIBUTION WIDTH 15.2 % (11.6-14.8); WHITE BLOOD COUNT 14.5 K/UL (4.8-10.8)
[2019-02-26 07:29] LABS: ANION GAP 10 mmol/L (5-15); BLOOD UREA NITROGEN 13 mg/dL (7-18); CARBON DIOXIDE 24 MMOL/L (21-32); CHLORIDE 108 MMOL/L (98-107); CREATININE 0.8 MG/DL (0.55-1.30); SODIUM 142 MMOL/L (136-145)
[2019-02-26 08:00] VITALS: BP 147/69
[2019-02-26] MEDS: Ascorbic Acid 500mg tab GT SCH (09:00)
[2019-02-26] MEDS: Heparin 5000 units/ml inj SUBQ SCH ×2 (09:04→20:32)
[2019-02-26] MEDS: Vancomycin 1gm/D5W 275ml IVPB SCH ×2 (10:24)
[2019-02-26 12:00] VITALS: BP 138/65
--- NOTE | 2019-02-26 12:29 | Surgery Progress Note ---
Surgery Progress Note Subjective Additional Comments no acute events exam unchanged abd soft labs noted. Objective Last 24 Hour Vital Signs Date Time Temp Pulse Resp B/P (MAP) Pulse Ox O2 Delivery O2 Flow Rate FiO2 02/26/19 12:00 40 02/26/19 12:00 Mechanical Ventilator 02/26/19 11:46 72 02/26/19 11:21 78 22 40 02/26/19 09:01 73 147/69 02/26/19 08:55 72 17 40 02/26/19 08:00 74 02/26/19 08:00 40 02/26/19 08:00 100.0 73 22 147/69 (95) 100 02/26/19 08:00 Mechanical Ventilator 02/26/19 06:40 76 22 40 02/26/19 05:16 50 23 40 02/26/19 04:00 Mechanical Ventilator 02/26/19 04:00 81 02/26/19 04:00 40 02/26/19 04:00 98.1 75 17 126/54 (78) 100 02/26/19 03:07 73 16 40 02/26/19 01:26 78 18 40 02/26/19 00:00 Mechanical Ventilator 02/26/19 00:00 84 02/26/19 00:00 98.2 82 22 138/69 (92) 100 02/25/19 23:34 83 23 40 02/25/19 21:26 76 20 40 02/25/19 21:10 83 146/71 02/25/19 20:00 Mechanical Ventilator 02/25/19 20:00 40 02/25/19 20:00 97.9 83 22 146/71 (96) 100 02/25/19 20:00 74 02/25/19 19:21 78 21 100 Mechanical Ventilator 40 02/25/19 19:21 78 21 40 02/25/19 16:53 83 18 40 02/25/19 16:20 87 20 02/25/19 16:00 98.1 84 137/65 (89) 02/25/19 16:00 40 02/25/19 16:00 88 02/25/19 16:00 Mechanical Ventilator 02/25/19 15:50 86 142/62 (88) 02/25/19 15:45 88 157/62 (93) 02/25/19 15:40 89 170/63 (98) 02/25/19 15:35 89 167/69 (101) 02/25/19 15:30 88 172/71 (104) 02/25/19 15:25 83 153/67 (95) 02/25/19 15:20 82 162/73 (102) 02/25/19 15:15 98.8 87 161/67 (98) 02/25/19 15:05 98.2 02/25/19 14:47 85 21 40 02/25/19 13:26 82 16 40 I&O Intake and Output 02/25/19 02/26/19 19:00 07:00 Intake Total 622.5 ml 600 ml Output Total 568 ml Balance 54.5 ml 600 ml Free Water 300 ml 200 ml IV Total 162.5 ml Tube Feeding 60 ml 400 ml Blood Product 100 ml Output Urine Total 550 ml Other 18 ml # Bowel Movements 4 5 Cardiovascular: RSR Respiratory: clear, decreased breath sounds Abdomen: soft, distended, non-tender, present bowel sounds Extremities: no cyanosis Laboratory Tests Test 02/26/19 04:50 02/26/19 05:40 Sodium Level 142 MMOL/L (136-145) Potassium Level 3.0 MMOL/L (3.5-5.1) L Chloride Level 108 MMOL/L (98-107) H Carbon Dioxide Level 24 MMOL/L (21-32) Anion Gap 10 mmol/L (5-15) Blood Urea Nitrogen 13 mg/dL (7-18) Creatinine 0.8 MG/DL (0.55-1.30) Estimat Glomerular Filtration Rate mL/min (>60) Glucose Level 140 MG/DL (74-106) H Calcium Level 9.0 MG/DL (8.5-10.1) White Blood Count 14.5 K/UL (4.8-10.8) H Red Blood Count 3.27 M/UL (4.20-5.40) L Hemoglobin 9.6 G/DL (12.0-16.0) L Hematocrit 29.5 % (37.0-47.0) L Mean Corpuscular Volume 90 FL (80-99) Mean Corpuscular Hemoglobin 29.5 PG (27.0-31.0) Mean Corpuscular Hemoglobin Concent 32.7 G/DL (32.0-36.0) Red Cell Distribution Width 15.2 % (11.6-14.8) H Platelet Count 341 K/UL (150-450) Mean Platelet Volume 5.2 FL (6.5-10.1) L Neutrophils (%) (Auto) 70.7 % (45.0-75.0) Lymphocytes (%) (Auto) 14.2 % (20.0-45.0) L Monocytes (%) (Auto) 6.3 % (1.0-10.0) Eosinophils (%) (Auto) 8.3 % (0.0-3.0) H Basophils (%) (Auto) 0.5 % (0.0-2.0) Plan Problems: (1) Abdominal distension Assessment & Plan: The colon is mostly distended with gas and fluid with areas of normal caliber, no definite obstructive lesion. There is diffuse marked distention of the small bowel with free communication of the distended distal small bowel lumen with the colon lumen. Findings are presumably functional in nature, as no obstructive lesion or transition point is demonstrated Evidence of prior proximal colectomy with ileocolic anastomosis Right lower quadrant retroperitoneal collection, with a pigtail drainage catheter at the cephalad aspect, consistent with a recently drained abscess. There may be a small amount of residual material within the collection Basilar or parenchymal atelectatic changes and possible consolidation Hepatic cyst. Hepatic subcentimeter low-attenuation lesions which are too small to characterize, most likely benign simple cysts. Other findings as noted, including gastrostomy, Abdi catheter, degenerative spondylosis (2) Abdominal abscess Assessment & Plan: Findings: Completion image demonstrates satisfactory position of the new drainage catheter note that the inferior aspect of the collection could not be accessed. However, it is not clear that this either represents fluid, is represents scar tissue. Impression: Successful replacement of right retroperitoneal collection drainage catheter, placed slightly deeper into the collection and previously. Only a scant amount of bloody fluid aspirated. The specimen was sent to the lab (3) Decubitus skin ulcer Assessment & Plan: Pt presented on admission with open DTPI sacrum. Multiple open wounds within base of wound with trace amt of slough at sacrococcygeal area ,surrounding dark and indurated borders.Non-blanching erythema periwound. (L) 7cm x (W)7.5cm x (D)0.2cm. Non-blanchable erythema without induration/fluctuance R and L heels. Skin Assessed under trach collar. Erythema noted to R side of neck but skin is otherwise intact. Tx.Plan: Cleanse Sacral wound with saline. Apply Therahoney. Apply Moisture Barrier Paste periwound. Cover with Optifoam drsg. Change every 3 days and prn. Apply Cavilon Skin Barrier to both heels.Cover with Optifoam drsg.Change every 7 days and prn. APM/CHELSEA Mattress overlay. Reposition at least every 2hours and prn. Off-load heels with pillow. Junior Stone Feb 26, 2019 12:29
--- NOTE | 2019-02-26 14:10 | Pulmonology Progress Note ---
Assessment/Plan Assessment/Plan Pulmonary Consultation HPI Patient is an 79-year old woman admitted from a assisted facility. Has had fevers for 1 day. Abdominal distention. Patient has a history of trach/ vent with G-tube. Patient nonverbal at baseline. No signs of distress upon arrival. No reported shortness of breath nausea or vomiting. No other associated symptoms S/P IR guided repeat abdominal abscess drainage 02/25/2019 - tolerated well Allergies: No Known Allergies Past Medical History: Hypertension, atrial fibrillation, respiratory failure, Gtube/trach, urogenital implant, decubitus ulcers All Other Systems: limited Physical Exam Vital Signs Noted General Appearance: chronically ill appearing, no apparent distress Head: normocephalic Eyes: bilateral eye normal inspection, bilateral eye PERRL ENT: normal pharynx, moist mm Neck: full range of motion, supple/symm/no masses, tracheotomy, no LN Respiratory: chest non-tender, normal breath sounds, occasional rhonchi Cardiovascular: regular rate, rhythm, no edema Gastrointestinal: distended, other - Gtube, abdominal drain noted Genitourinary: no CVA tenderness Musculoskeletal: weak Neurologic: no focal signs, no seizures Impression: Abdominal abscess, drain not in abscess cavity UTI (urinary tract infection) Abdominal distension Pneumonia Hypertension Atrial fibrillation Respiratory failure Gtube/trach Urogenital implant Decubitus ulcers Plan IV antibiotics [employer]CH[employer]IAN medications Wound team IR repositioning of abscess drain Supplement K Monitor labs ABG AC ventilator settings Dr Stone contacted by ED. Labs Test 02/25/19 00:10 02/25/19 00:30 White Blood Count 17.8 K/UL (4.8-10.8) Red Blood Count 3.79 M/UL (4.20-5.40) Hemoglobin 11.0 G/DL (12.0-16.0) Hematocrit 33.7 % (37.0-47.0) Mean Corpuscular Volume 89 FL (80-99) Mean Corpuscular Hemoglobin 29.1 PG (27.0-31.0) Mean Corpuscular Hemoglobin Concent 32.8 G/DL (32.0-36.0) Red Cell Distribution Width 15.1 % (11.6-14.8) Platelet Count 485 K/UL (150-450) Mean Platelet Volume 4.8 FL (6.5-10.1) Neutrophils (%) (Auto) 56.9 % (45.0-75.0) Lymphocytes (%) (Auto) 29.7 % (20.0-45.0) Monocytes (%) (Auto) 7.1 % (1.0-10.0) Eosinophils (%) (Auto) 5.7 % (0.0-3.0) Basophils (%) (Auto) 0.8 % (0.0-2.0) Sodium Level 139 MMOL/L (136-145) Potassium Level 3.0 MMOL/L (3.5-5.1) Chloride Level 101 MMOL/L (98-107) Carbon Dioxide Level 26 MMOL/L (21-32) Anion Gap 12 mmol/L (5-15) Blood Urea Nitrogen 13 mg/dL (7-18) Creatinine 0.7 MG/DL (0.55-1.30) Estimat Glomerular Filtration Rate mL/min (>60) Glucose Level 112 MG/DL (74-106) Lactic Acid Level 1.40 mmol/L (0.4-2.0) Calcium Level 9.5 MG/DL (8.5-10.1) Total Bilirubin 0.4 MG/DL (0.2-1.0) Aspartate Amino Transf (AST/SGOT) 24 U/L (15-37) Alanine Aminotransferase (ALT/SGPT) 21 U/L (12-78) Alkaline Phosphatase 87 U/L (46-116) Total Creatine Kinase 30 U/L (26-308) Creatine Kinase MB 0.7 NG/ML (0.0-3.6) Creatine Kinase MB Relative Index 2.3 Troponin I 0.000 ng/mL (0.000-0.056) Pro-B-Type Natriuretic Peptide 349 pg/mL (0-125) Total Protein 8.5 G/DL (6.4-8.2) Albumin 2.5 G/DL (3.4-5.0) Globulin 6.0 g/dL Albumin/Globulin Ratio 0.4 (1.0-2.7) Urine Color Pale yellow Urine Appearance Clear Urine pH 6 (4.5-8.0) Urine Specific [place] 1.010 (1.005-1.035) Urine Protein 1+ (NEGATIVE) Urine Glucose (UA) Negative (NEGATIVE) Urine Ketones Negative (NEGATIVE) Urine Blood Negative (NEGATIVE) Urine Nitrite Negative (NEGATIVE) Urine Bilirubin Negative (NEGATIVE) Urine Urobilinogen Normal MG/DL (0.0-1.0) Urine Leukocyte Esterase 3+ (NEGATIVE) Urine RBC 0-2 /HPF (0 - 2) Urine WBC 40-60 /HPF (0 - 2) Urine Squamous Epithelial Cells Few /LPF (NONE/OCC) Urine Bacteria Moderate /HPF (NONE) EKG: Rate: normal Rhythm: NSR ST Segments: no acute changes Chest X-Ray: no pneumothorax, other - consolidation LLL CT Abdomen and Pelvis: 7 x 1.7 x 4.4 cm abscess in the right lower quadrant. The tip of the pigtail catheter is just superior to this fluid collection. Diffusely dilated loops of colon, with some areas of narrowing. May represent ileus, also consider [place]'s syndrome. No definite small bowel obstruction. G-tube is in place. Subjective ROS Limited/Unobtainable: No Allergies: Coded Allergies: No Known Allergies (Unverified , 02/25/19) Objective Last 24 Hour Vital Signs Date Time Temp Pulse Resp B/P (MAP) Pulse Ox O2 Delivery O2 Flow Rate FiO2 02/26/19 13:00 79 21 40 02/26/19 12:00 40 02/26/19 12:00 Mechanical Ventilator 02/26/19 11:46 72 02/26/19 11:21 78 22 40 02/26/19 09:01 73 147/69 02/26/19 08:55 72 17 40 02/26/19 08:00 74 02/26/19 08:00 40 02/26/19 08:00 100.0 73 22 147/69 (95) 100 02/26/19 08:00 Mechanical Ventilator 02/26/19 06:40 76 22 40 02/26/19 05:16 50 23 40 02/26/19 04:00 Mechanical Ventilator 02/26/19 04:00 81 02/26/19 04:00 40 02/26/19 04:00 98.1 75 17 126/54 (78) 100 02/26/19 03:07 73 16 40 02/26/19 01:26 78 18 40 02/26/19 00:00 Mechanical Ventilator 02/26/19 00:00 84 02/26/19 00:00 98.2 82 22 138/69 (92) 100 02/25/19 23:34 83 23 40 02/25/19 21:26 76 20 40 02/25/19 21:10 83 146/71 02/25/19 20:00 Mechanical Ventilator 02/25/19 20:00 40 02/25/19 20:00 97.9 83 22 146/71 (96) 100 02/25/19 20:00 74 02/25/19 19:21 78 21 100 Mechanical Ventilator 40 02/25/19 19:21 78 21 40 02/25/19 16:53 83 18 40 02/25/19 16:20 87 20 02/25/19 16:00 98.1 84 137/65 (89) 02/25/19 16:00 40 02/25/19 16:00 88 02/25/19 16:00 Mechanical Ventilator 02/25/19 15:50 86 142/62 (88) 02/25/19 15:45 88 157/62 (93) 02/25/19 15:40 89 170/63 (98) 02/25/19 15:35 89 167/69 (101) 02/25/19 15:30 88 172/71 (104) 02/25/19 15:25 83 153/67 (95) 02/25/19 15:20 82 162/73 (102) 02/25/19 15:15 98.8 87 161/67 (98) 02/25/19 15:05 98.2 02/25/19 14:47 85 21 40 Intake and Output 02/25/19 02/26/19 18:59 06:59 Intake Total 602.5 ml 580 ml Output Total 568 ml Balance 34.5 ml 580 ml Free Water 300 ml 200 ml IV Total 162.5 ml Tube Feeding 40 ml 380 ml Blood Product 100 ml Output Urine Total 550 ml Other 18 ml # Bowel Movements 4 5 Microbiology Date/Time Source Procedure Growth Status 02/25/19 00:16 Blood Blood Culture - Preliminary NO GROWTH AFTER 24 HOURS Resulted 02/25/19 00:00 Blood Blood Culture - Preliminary NO GROWTH AFTER 24 HOURS Resulted 02/25/19 00:30 Urine,Clean Catch Urine Culture - Preliminary NO GROWTH AFTER 24 HOURS Resulted 02/25/19 15:10 Abdominal Abscess Gram Stain - Final Resulted 02/25/19 15:10 Abdominal Abscess Aerobic Culture - Preliminary NO GROWTH Resulted 02/25/19 15:10 Abdominal Abscess Anaerobic Culture Pending Resulted Laboratory Tests 02/26/19 04:50: Sodium Level 142, Potassium Level 3.0L, Chloride Level 108H, Carbon Dioxide Level 24, Anion Gap 10, Blood Urea Nitrogen 13, Creatinine 0.8, Estimat Glomerular Filtration Rate , Glucose Level 140H, Calcium Level 9.0 02/26/19 05:40: White Blood Count 14.5H, Red Blood Count 3.27L, Hemoglobin 9.6L, Hematocrit 29.5L, Mean Corpuscular Volume 90, Mean Corpuscular Hemoglobin 29.5, Mean Corpuscular Hemoglobin Concent 32.7, Red Cell Distribution Width 15.2H, Platelet Count 341, Mean Platelet Volume 5.2L, Neutrophils (%) (Auto) 70.7, Lymphocytes (%) (Auto) 14.2L, Monocytes (%) (Auto) 6.3, Eosinophils (%) (Auto) 8.3H, Basophils (%) (Auto) 0.5 Current Medications Medications (Trade) Dose Ordered Sig/Oz Route PRN Reason Start Time Stop Time Status Last Admin Dose Admin Acetaminophen (Tylenol) 650 mg Q4H PRN GT Mild Pain/Temp > 100.5 02/25/19 07:00 03/27/19 06:59 Al Hydroxide/Mg Hydroxide (Mylanta) 30 ml Q4H PRN ORAL dyspepsia 02/25/19 07:45 03/27/19 07:44 Albuterol/ Ipratropium (Albuterol/ Ipratropium) 3 ml Q4H PRN HHN Shortness of Breath 02/25/19 07:45 03/02/19 07:44 Amiodarone HCl (Cordarone) 200 mg EVERY 8 HOURS GT 02/25/19 14:00 03/27/19 13:59 02/26/19 06:16 Amlodipine Besylate (Norvasc) 5 mg Q12HR GT 02/25/19 09:00 03/27/19 08:59 02/26/19 09:01 Ascorbic Acid (Vitamin C) 500 mg DAILY GT 02/25/19 09:00 03/27/19 08:59 02/26/19 09:00 Heparin Sodium (Porcine) (Heparin 5000 units/ml) 5,000 units EVERY 12 HOURS SUBQ 02/25/19 21:00 03/27/19 20:59 02/26/19 09:04 Hydralazine HCl (Apresoline) 10 mg Q6H PRN GT For High Blood Pressure 02/25/19 08:15 03/27/19 08:14 Iopamidol (Isovue-300 100ml) 100 ml NOW PRN INJ Radiology Procedure 02/25/19 00:15 Lansoprazole (Prevacid) 30 mg DAILY GT 02/25/19 09:00 03/27/19 08:59 02/26/19 09:03 Lidocaine HCl (Xylocaine 1% 30ml) 30 ml ONCE PRN INJ IR procedure 02/25/19 08:15 02/26/19 18:00 Piperacillin Sod/ Tazobactam Sod 3.375 gm/Sodium Chloride 110 ml @ 27.5 mls/hr Q8HR IVPB 02/25/19 14:00 03/04/19 13:59 02/26/19 06:17 Vancomycin HCl (Vanco rx to dose) 1 ea DAILY PRN MISC Per rx protocol 02/25/19 07:00 03/27/19 06:59 Vancomycin HCl 1 gm/Dextrose 275 ml @ 183.708 mls/hr Q24H IVPB 02/26/19 10:00 03/03/19 09:59 02/26/19 10:24 Raúl Ledbetter MD Feb 26, 2019 14:10
--- NOTE | 2019-02-26 14:37 | General Progress Note ---
Assessment/Plan Problem List: (1) UTI (urinary tract infection) ICD Codes: N39.0 - Urinary tract infection, site not specified SNOMED: 14909294 Qualifiers: Qualified Codes: N39.0 - Urinary tract infection, site not specified (2) Pneumonia ICD Codes: J18.9 - Pneumonia, unspecified organism SNOMED: 088508851 Qualifiers: Qualified Codes: J18.1 - Lobar pneumonia, unspecified organism (3) Abdominal distension ICD Codes: R14.0 - Abdominal distension (gaseous) SNOMED: 60492193 (4) Abdominal abscess SNOMED: 83909675 (5) Decubitus skin ulcer ICD Codes: L89.90 - Pressure ulcer of unspecified site, unspecified stage SNOMED: 921867673 Status: stable, progressing Assessment/Plan: cont current rx iv abx follow up cultures gt feeds vent support resp rx Subjective ROS Limited/Unobtainable: No Constitutional: Reports: malaise, weakness HEENT: Reports: no symptoms Cardiovascular: Reports: no symptoms Respiratory: Reports: no symptoms Gastrointestinal/Abdominal: Reports: no symptoms Genitourinary: Reports: no symptoms Neurologic/Psychiatric: Reports: pre-existing deficit Endocrine: Reports: no symptoms Hematologic/Lymphatic: Reports: anemia Allergies: Coded Allergies: No Known Allergies (Unverified , 02/25/19) All Systems: reviewed and negative except above Subjective no events. s/p drainage catheter placement. stable on the vent. no fevers. on iv abx. culture neg Objective Last 24 Hour Vital Signs Date Time Temp Pulse Resp B/P (MAP) Pulse Ox O2 Delivery O2 Flow Rate FiO2 02/26/19 13:00 79 21 40 02/26/19 12:00 40 02/26/19 12:00 Mechanical Ventilator 02/26/19 12:00 99.7 72 20 138/65 (89) 100 02/26/19 11:46 72 02/26/19 11:21 78 22 40 02/26/19 09:01 73 147/69 02/26/19 08:55 72 17 40 02/26/19 08:00 74 02/26/19 08:00 40 02/26/19 08:00 100.0 73 22 147/69 (95) 100 02/26/19 08:00 Mechanical Ventilator 02/26/19 06:40 76 22 40 02/26/19 05:16 50 23 40 02/26/19 04:00 Mechanical Ventilator 02/26/19 04:00 81 02/26/19 04:00 40 02/26/19 04:00 98.1 75 17 126/54 (78) 100 02/26/19 03:07 73 16 40 02/26/19 01:26 78 18 40 02/26/19 00:00 Mechanical Ventilator 02/26/19 00:00 84 02/26/19 00:00 98.2 82 22 138/69 (92) 100 02/25/19 23:34 83 23 40 02/25/19 21:26 76 20 40 02/25/19 21:10 83 146/71 02/25/19 20:00 Mechanical Ventilator 02/25/19 20:00 40 02/25/19 20:00 97.9 83 22 146/71 (96) 100 02/25/19 20:00 74 02/25/19 19:21 78 21 100 Mechanical Ventilator 40 02/25/19 19:21 78 21 40 02/25/19 16:53 83 18 40 02/25/19 16:20 87 20 02/25/19 16:00 98.1 84 137/65 (89) 02/25/19 16:00 40 02/25/19 16:00 88 02/25/19 16:00 Mechanical Ventilator 02/25/19 15:50 86 142/62 (88) 02/25/19 15:45 88 157/62 (93) 02/25/19 15:40 89 170/63 (98) 02/25/19 15:35 89 167/69 (101) 02/25/19 15:30 88 172/71 (104) 02/25/19 15:25 83 153/67 (95) 02/25/19 15:20 82 162/73 (102) 02/25/19 15:15 98.8 87 161/67 (98) 02/25/19 15:05 98.2 02/25/19 14:47 85 21 40 Intake and Output 02/25/19 02/26/19 18:59 06:59 Intake Total 602.5 ml 580 ml Output Total 568 ml Balance 34.5 ml 580 ml Free Water 300 ml 200 ml IV Total 162.5 ml Tube Feeding 40 ml 380 ml Blood Product 100 ml Output Urine Total 550 ml Other 18 ml # Bowel Movements 4 5 Laboratory Tests 02/26/19 04:50: Sodium Level 142, Potassium Level 3.0L, Chloride Level 108H, Carbon Dioxide Level 24, Anion Gap 10, Blood Urea Nitrogen 13, Creatinine 0.8, Estimat Glomerular Filtration Rate , Glucose Level 140H, Calcium Level 9.0 02/26/19 05:40: White Blood Count 14.5H, Red Blood Count 3.27L, Hemoglobin 9.6L, Hematocrit 29.5L, Mean Corpuscular Volume 90, Mean Corpuscular Hemoglobin 29.5, Mean Corpuscular Hemoglobin Concent 32.7, Red Cell Distribution Width 15.2H, Platelet Count 341, Mean Platelet Volume 5.2L, Neutrophils (%) (Auto) 70.7, Lymphocytes (%) (Auto) 14.2L, Monocytes (%) (Auto) 6.3, Eosinophils (%) (Auto) 8.3H, Basophils (%) (Auto) 0.5 Height (Feet): 5 Height (Inches): 1.00 Weight (Pounds): 136 General Appearance: WD/WN, lethargic Neck: supple Cardiovascular: regular rhythm Respiratory/Chest: chest wall non-tender, lungs clear, normal breath sounds Abdomen: normal bowel sounds, non tender, soft, no organomegaly Edema: no edema noted Arm (L), no edema noted Arm (R), no edema noted Leg (L), no edema noted Leg (R), no edema noted Pedal (L), no edema noted Pedal (R), no edema noted Generalized Efrain Radford MD Feb 26, 2019 14:37
[2019-02-26] MEDS ORDERED: D5 1/2NS 1000ml IV ONE (15:48)
[2019-02-26] MEDS ORDERED: Tubing IV Secondary IV ONE (15:48)
[2019-02-26 16:00] VITALS: BP 141/75
[2019-02-26 20:00] VITALS: BP 143/68
[2019-02-26] MEDS: Acetaminophen 650mg/20.3ml GT PRN (20:29)
[2019-02-27] VITALS: BP 156/69
[2019-02-27 04:00] VITALS: BP 120/56
[2019-02-27] MEDS: Amiodarone 200mg tab GT SCH ×3 (05:16→21:39)
[2019-02-27] MEDS: Piperacillin/Tazobactam 3.375 GM in NS 110 ML IVPB SCH ×3 (05:17→21:39)
--- NOTE | 2019-02-27 07:48 | General Progress Note ---
Assessment/Plan Problem List: (1) UTI (urinary tract infection) ICD Codes: N39.0 - Urinary tract infection, site not specified SNOMED: 28880220 Qualifiers: Qualified Codes: N39.0 - Urinary tract infection, site not specified (2) Pneumonia ICD Codes: J18.9 - Pneumonia, unspecified organism SNOMED: 299468531 Qualifiers: Qualified Codes: J18.1 - Lobar pneumonia, unspecified organism (3) Abdominal distension ICD Codes: R14.0 - Abdominal distension (gaseous) SNOMED: 43877352 (4) Abdominal abscess SNOMED: 43263962 (5) Decubitus skin ulcer ICD Codes: L89.90 - Pressure ulcer of unspecified site, unspecified stage SNOMED: 931636103 Status: stable, progressing Assessment/Plan: cont current rx iv abx follow up cultures gt feeds vent support resp rx Subjective ROS Limited/Unobtainable: Yes Constitutional: Reports: malaise, weakness HEENT: Reports: no symptoms Cardiovascular: Reports: no symptoms Respiratory: Reports: shortness of breath Gastrointestinal/Abdominal: Reports: difficulty swallowing Genitourinary: Reports: no symptoms Neurologic/Psychiatric: Reports: pre-existing deficit Endocrine: Reports: no symptoms Hematologic/Lymphatic: Reports: anemia Allergies: Coded Allergies: No Known Allergies (Unverified , 02/25/19) All Systems: reviewed and negative except above Subjective no change. remains on the vent. poorly responsive. no fevers. labs pending. culture negative so far Objective Last 24 Hour Vital Signs Date Time Temp Pulse Resp B/P (MAP) Pulse Ox O2 Delivery O2 Flow Rate FiO2 02/27/19 07:05 80 33 40 02/27/19 05:04 77 24 40 02/27/19 04:00 40 02/27/19 04:00 Mechanical Ventilator 02/27/19 04:00 99.5 73 19 120/56 (77) 100 02/27/19 04:00 70 02/27/19 03:23 80 28 40 02/27/19 01:00 78 22 40 02/27/19 00:00 Mechanical Ventilator 02/27/19 00:00 84 02/27/19 00:00 99.5 84 26 156/69 (98) 100 02/26/19 23:09 76 23 40 02/26/19 20:59 99.9 02/26/19 20:45 79 23 40 02/26/19 20:28 72 143/68 02/26/19 20:00 Mechanical Ventilator 02/26/19 20:00 100.6 72 20 143/68 (93) 100 02/26/19 20:00 40 02/26/19 19:44 71 02/26/19 19:21 76 26 40 02/26/19 17:18 73 19 40 02/26/19 16:03 Mechanical Ventilator 02/26/19 16:02 40 02/26/19 16:00 101.5 75 20 141/75 (97) 100 02/26/19 16:00 77 02/26/19 15:00 74 19 40 02/26/19 13:00 79 21 40 02/26/19 12:00 40 02/26/19 12:00 Mechanical Ventilator 02/26/19 12:00 99.7 72 20 138/65 (89) 100 02/26/19 11:46 72 02/26/19 11:21 78 22 40 02/26/19 09:01 73 147/69 02/26/19 08:55 72 17 40 02/26/19 08:00 74 02/26/19 08:00 40 02/26/19 08:00 100.0 73 22 147/69 (95) 100 02/26/19 08:00 Mechanical Ventilator Intake and Output 02/26/19 02/27/19 19:00 07:00 Intake Total 1077.416 ml 587.5 ml Output Total 400 ml 250 ml Balance 677.416 ml 337.5 ml Free Water 120 ml 200 ml IV Total 587.416 ml 137.5 ml Tube Feeding 360 ml 240 ml Other 10 ml 10 ml Output Urine Total 375 ml 250 ml Drainage Total 25 ml # Bowel Movements 3 5 Height (Feet): 5 Height (Inches): 1.00 Weight (Pounds): 136 Objective General Appearance: WD/WN, lethargic Neck: supple Cardiovascular: regular rhythm Respiratory/Chest: chest wall non-tender, lungs clear, normal breath sounds Abdomen: normal bowel sounds, non tender, soft, no organomegaly Edema: no edema noted Arm (L), no edema noted Arm (R), no edema noted Leg (L), no edema noted Leg (R), no edema noted Pedal (L), no edema noted Pedal (R), no edema noted Generalized Efrain Radford MD Feb 27, 2019 07:48
[2019-02-27 08:00] VITALS: BP 139/62
[2019-02-27] MEDS: Ascorbic Acid 500mg tab GT SCH (08:13)
[2019-02-27] MEDS: D5 1/2NS 1,000 ML IV SCH (08:13)
[2019-02-27] MEDS: metroNIDAZOLE 500mg tab GT SCH ×3 (08:13→21:39)
[2019-02-27] MEDS: Heparin 5000 units/ml inj SUBQ SCH ×2 (08:25→21:13)
[2019-02-27 09:29] LABS: BASOPHILS % (AUTO) 0.4 % (0.0-2.0); EOSINOPHILS % (AUTO) 5.9 % (0.0-3.0); HEMATOCRIT 28.7 % (37.0-47.0); HEMOGLOBIN 9.3 G/DL (12.0-16.0); LYMPHOCYTES % (AUTO) 15.7 % (20.0-45.0); MEAN CORPUSCULAR VOLUME 91 FL (80-99); MONOCYTES % (AUTO) 5.8 % (1.0-10.0); NEUTROPHILS % (AUTO) 72.2 % (45.0-75.0); PLATELET COUNT 332 K/UL (150-450); RED BLOOD COUNT 3.17 M/UL (4.20-5.40); RED CELL DISTRIBUTION WIDTH 15.1 % (11.6-14.8); WHITE BLOOD COUNT 14.8 K/UL (4.8-10.8)
[2019-02-27 09:47] LABS: ALANINE AMINOTRANSFERASE 13 U/L (12-78); ALBUMIN/GLOBULIN RATIO 0.4 (1.0-2.7); ALKALINE PHOSPHATASE 63 U/L (46-116); ANION GAP 9 mmol/L (5-15); ASPARTATE AMINO TRANSFERASE 19 U/L (15-37); BILIRUBIN,TOTAL 0.4 MG/DL (0.2-1.0); BLOOD UREA NITROGEN 12 mg/dL (7-18); CALCIUM 8.8 MG/DL (8.5-10.1); CARBON DIOXIDE 24 MMOL/L (21-32); CHLORIDE 110 MMOL/L (98-107); CREATININE 0.7 MG/DL (0.55-1.30); POTASSIUM 3.2 MMOL/L (3.5-5.1); SODIUM 143 MMOL/L (136-145)
[2019-02-27] MEDS: Vancomycin 1gm/D5W 275ml IVPB SCH ×2 (10:11)
[2019-02-27 12:00] VITALS: BP 129/53
--- NOTE | 2019-02-27 12:03 | Pulmonology Progress Note ---
Assessment/Plan Assessment/Plan Pulmonary Progress Note HPI Patient is an 79-year old woman admitted from a long term facility. Had fevers and abdominal distention. Patient has a history of trach/vent with G- tube. Patient nonverbal at baseline. No signs of distress upon arrival. No reported shortness of breath nausea or vomiting. No other associated symptoms S/P IR guided repeat abdominal abscess drainage 02/25/2019 - tolerated well Allergies: No Known Allergies Past Medical History: Hypertension, atrial fibrillation, respiratory failure, Gtube/trach, urogenital implant, decubitus ulcers All Other Systems: limited Physical Exam Vital Signs Noted General Appearance: chronically ill appearing, no apparent distress Head: normocephalic Eyes: bilateral eye normal inspection, bilateral eye PERRL ENT: normal pharynx, moist mm Neck: full range of motion, supple/symm/no masses, tracheotomy, no LN Respiratory: chest non-tender, normal breath sounds, occasional rhonchi Cardiovascular: regular rate, rhythm, no edema Gastrointestinal: distended, other - Gtube, abdominal drain noted Genitourinary: no CVA tenderness Musculoskeletal: weak Neurologic: no focal signs, no seizures Impression: Abdominal abscess, drain not in abscess cavity UTI (urinary tract infection) Abdominal distension Pneumonia Hypertension Atrial fibrillation Respiratory failure Gtube/trach Urogenital implant Decubitus ulcers Plan IV antibiotics [employer] medications Wound team IR repositioning of abscess drain Supplement K Monitor labs ABG AC ventilator settings Dr Stone contacted by ED. Labs Test 02/25/19 00:10 02/25/19 00:30 White Blood Count 17.8 K/UL (4.8-10.8) Red Blood Count 3.79 M/UL (4.20-5.40) Hemoglobin 11.0 G/DL (12.0-16.0) Hematocrit 33.7 % (37.0-47.0) Mean Corpuscular Volume 89 FL (80-99) Mean Corpuscular Hemoglobin 29.1 PG (27.0-31.0) Mean Corpuscular Hemoglobin Concent 32.8 G/DL (32.0-36.0) Red Cell Distribution Width 15.1 % (11.6-14.8) Platelet Count 485 K/UL (150-450) Mean Platelet Volume 4.8 FL (6.5-10.1) Neutrophils (%) (Auto) 56.9 % (45.0-75.0) Lymphocytes (%) (Auto) 29.7 % (20.0-45.0) Monocytes (%) (Auto) 7.1 % (1.0-10.0) Eosinophils (%) (Auto) 5.7 % (0.0-3.0) Basophils (%) (Auto) 0.8 % (0.0-2.0) Sodium Level 139 MMOL/L (136-145) Potassium Level 3.0 MMOL/L (3.5-5.1) Chloride Level 101 MMOL/L (98-107) Carbon Dioxide Level 26 MMOL/L (21-32) Anion Gap 12 mmol/L (5-15) Blood Urea Nitrogen 13 mg/dL (7-18) Creatinine 0.7 MG/DL (0.55-1.30) Estimat Glomerular Filtration Rate mL/min (>60) Glucose Level 112 MG/DL (74-106) Lactic Acid Level 1.40 mmol/L (0.4-2.0) Calcium Level 9.5 MG/DL (8.5-10.1) Total Bilirubin 0.4 MG/DL (0.2-1.0) Aspartate Amino Transf (AST/SGOT) 24 U/L (15-37) Alanine Aminotransferase (ALT/SGPT) 21 U/L (12-78) Alkaline Phosphatase 87 U/L (46-116) Total Creatine Kinase 30 U/L (26-308) Creatine Kinase MB 0.7 NG/ML (0.0-3.6) Creatine Kinase MB Relative Index 2.3 Troponin I 0.000 ng/mL (0.000-0.056) Pro-B-Type Natriuretic Peptide 349 pg/mL (0-125) Total Protein 8.5 G/DL (6.4-8.2) Albumin 2.5 G/DL (3.4-5.0) Globulin 6.0 g/dL Albumin/Globulin Ratio 0.4 (1.0-2.7) Urine Color Pale yellow Urine Appearance Clear Urine pH 6 (4.5-8.0) Urine Specific [place]rania 1.010 (1.005-1.035) Urine Protein 1+ (NEGATIVE) Urine Glucose (UA) Negative (NEGATIVE) Urine Ketones Negative (NEGATIVE) Urine Blood Negative (NEGATIVE) Urine Nitrite Negative (NEGATIVE) Urine Bilirubin Negative (NEGATIVE) Urine Urobilinogen Normal MG/DL (0.0-1.0) Urine Leukocyte Esterase 3+ (NEGATIVE) Urine RBC 0-2 /HPF (0 - 2) Urine WBC 40-60 /HPF (0 - 2) Urine Squamous Epithelial Cells Few /LPF (NONE/OCC) Urine Bacteria Moderate /HPF (NONE) EKG: Rate: normal Rhythm: NSR ST Segments: no acute changes Chest X-Ray: no pneumothorax, other - consolidation LLL CT Abdomen and Pelvis: 7 x 1.7 x 4.4 cm abscess in the right lower quadrant. The tip of the pigtail catheter is just superior to this fluid collection. Diffusely dilated loops of colon, with some areas of narrowing. May represent ileus, also consider Bradley's syndrome. No definite small bowel obstruction. G-tube is in place. Subjective ROS Limited/Unobtainable: No Allergies: Coded Allergies: No Known Allergies (Unverified , 02/25/19) Objective Last 24 Hour Vital Signs Date Time Temp Pulse Resp B/P (MAP) Pulse Ox O2 Delivery O2 Flow Rate FiO2 02/27/19 10:55 84 28 40 02/27/19 08:32 77 18 40 02/27/19 08:17 77 139/62 02/27/19 08:00 Mechanical Ventilator 02/27/19 08:00 81 02/27/19 08:00 40 02/27/19 08:00 98.4 77 19 139/62 (87) 100 02/27/19 07:05 80 33 40 02/27/19 05:04 77 24 40 02/27/19 04:00 40 02/27/19 04:00 Mechanical Ventilator 02/27/19 04:00 99.5 73 19 120/56 (77) 100 02/27/19 04:00 70 02/27/19 03:23 80 28 40 02/27/19 01:00 78 22 40 02/27/19 00:00 Mechanical Ventilator 02/27/19 00:00 84 02/27/19 00:00 99.5 84 26 156/69 (98) 100 02/26/19 23:09 76 23 40 02/26/19 20:59 99.9 02/26/19 20:45 79 23 40 02/26/19 20:28 72 143/68 02/26/19 20:00 Mechanical Ventilator 02/26/19 20:00 100.6 72 20 143/68 (93) 100 02/26/19 20:00 40 02/26/19 19:44 71 02/26/19 19:21 76 26 40 02/26/19 17:18 73 19 40 02/26/19 16:03 Mechanical Ventilator 02/26/19 16:02 40 02/26/19 16:00 101.5 75 20 141/75 (97) 100 02/26/19 16:00 77 02/26/19 15:00 74 19 40 02/26/19 13:00 79 21 40 Intake and Output 02/26/19 02/27/19 19:00 07:00 Intake Total 1077.416 ml 587.5 ml Output Total 400 ml 250 ml Balance 677.416 ml 337.5 ml Free Water 120 ml 200 ml IV Total 587.416 ml 137.5 ml Tube Feeding 360 ml 240 ml Other 10 ml 10 ml Output Urine Total 375 ml 250 ml Drainage Total 25 ml # Bowel Movements 3 5 Microbiology Date/Time Source Procedure Growth Status 02/25/19 00:16 Blood Blood Culture - Preliminary NO GROWTH AFTER 24 HOURS Resulted 02/25/19 00:00 Blood Blood Culture - Preliminary NO GROWTH AFTER 24 HOURS Resulted 02/26/19 08:00 Stool Clostridium difficile Toxin Assay - Final Complete 02/25/19 00:30 Urine,Clean Catch Urine Culture - Final NO GROWTH AFTER 48 HOURS Complete 02/25/19 15:10 Abdominal Abscess Gram Stain - Final Resulted 02/25/19 15:10 Abdominal Abscess Aerobic Culture - Preliminary NO GROWTH Resulted 02/25/19 15:10 Abdominal Abscess Anaerobic Culture - Preliminary NO GROWTH Resulted 02/25/19 00:30 Rectum - Final NO CARBAPENEM-RESISTANT ENTEROBACTERI... Complete 02/25/19 00:30 Rectum VRE Culture - Final Enterococcus Faecalis - Vre Complete Laboratory Tests 02/27/19 09:08: White Blood Count 14.8H, Red Blood Count 3.17L, Hemoglobin 9.3L, Hematocrit 28.7L, Mean Corpuscular Volume 91, Mean Corpuscular Hemoglobin 29.2, Mean Corpuscular Hemoglobin Concent 32.3, Red Cell Distribution Width 15.1H, Platelet Count 332, Mean Platelet Volume 5.1L, Neutrophils (%) (Auto) 72.2, Lymphocytes (%) (Auto) 15.7L, Monocytes (%) (Auto) 5.8, Eosinophils (%) (Auto) 5.9H, Basophils (%) (Auto) 0.4, Sodium Level 143, Potassium Level 3.2L, Chloride Level 110H, Carbon Dioxide Level 24, Anion Gap 9, Blood Urea Nitrogen 12, Creatinine 0.7, Estimat Glomerular Filtration Rate , Glucose Level 126H, Calcium Level 8.8, Total Bilirubin 0.4, Aspartate Amino Transf (AST/SGOT) 19, Alanine Aminotransferase (ALT/SGPT) 13, Alkaline Phosphatase 63, Total Protein 7.1, Albumin 2.0L, Globulin 5.1, Albumin/Globulin Ratio 0.4L Current Medications Medications (Trade) Dose Ordered Sig/Oz Route PRN Reason Start Time Stop Time Status Last Admin Dose Admin Acetaminophen (Tylenol) 650 mg Q4H PRN GT Mild Pain/Temp > 100.5 02/25/19 07:00 03/27/19 06:59 02/26/19 20:29 Al Hydroxide/Mg Hydroxide (Mylanta) 30 ml Q4H PRN ORAL dyspepsia 02/25/19 07:45 03/27/19 07:44 Albuterol/ Ipratropium (Albuterol/ Ipratropium) 3 ml Q4H PRN HHN Shortness of Breath 02/25/19 07:45 03/02/19 07:44 Amiodarone HCl (Cordarone) 200 mg EVERY 8 HOURS GT 02/25/19 14:00 03/27/19 13:59 02/27/19 05:16 Amlodipine Besylate (Norvasc) 5 mg Q12HR GT 02/25/19 09:00 03/27/19 08:59 02/27/19 08:17 Ascorbic Acid (Vitamin C) 500 mg DAILY GT 02/25/19 09:00 03/27/19 08:59 02/27/19 08:13 Dextrose/Sodium Chloride 1,000 ml @ 30 mls/hr Q24H IV 02/27/19 07:15 03/29/19 07:14 02/27/19 08:13 Heparin Sodium (Porcine) (Heparin 5000 units/ml) 5,000 units EVERY 12 HOURS SUBQ 02/25/19 21:00 03/27/19 20:59 02/27/19 08:25 Hydralazine HCl (Apresoline) 10 mg Q6H PRN GT For High Blood Pressure 02/25/19 08:15 03/27/19 08:14 Iopamidol (Isovue-300 100ml) 100 ml NOW PRN INJ Radiology Procedure 02/25/19 00:15 Lansoprazole (Prevacid) 30 mg DAILY GT 02/25/19 09:00 03/27/19 08:59 02/27/19 08:14 Metronidazole (Flagyl) 500 mg Q8HR GT 02/27/19 07:15 03/06/19 07:14 02/27/19 08:13 Piperacillin Sod/ Tazobactam Sod 3.375 gm/Sodium Chloride 110 ml @ 27.5 mls/hr Q8HR IVPB 02/25/19 14:00 03/04/19 13:59 02/27/19 05:17 Potassium Chloride (K-Dur) 40 meq ONCE GT 02/27/19 14:00 02/27/19 16:00 Vancomycin HCl (Vanco rx to dose) 1 ea DAILY PRN MISC Per rx protocol 02/25/19 07:00 03/27/19 06:59 Vancomycin HCl 1 gm/Dextrose 275 ml @ 183.708 mls/hr Q24H IVPB 02/26/19 10:00 03/03/19 09:59 02/27/19 10:11 Raúl Ledbetter MD Feb 27, 2019 12:03
--- NOTE | 2019-02-27 13:02 | Cardiology Report ---
APPROVED REPORT EKG Measurement Heart [id number] [id number] Normal sinus rhythm Minimal voltage criteria for LVH, may be normal variant Inferior infarct, age undetermined Prolonged QT Abnormal ECG
--- NOTE | 2019-02-27 13:58 | Surgery Progress Note ---
Surgery Progress Note Subjective Additional Comments no acute events comfortable stable leukocytosis exam unchanged abd soft, nd/nd Objective Last 24 Hour Vital Signs Date Time Temp Pulse Resp B/P (MAP) Pulse Ox O2 Delivery O2 Flow Rate FiO2 02/27/19 13:10 74 18 40 02/27/19 10:55 84 28 40 02/27/19 08:32 77 18 40 02/27/19 08:17 77 139/62 02/27/19 08:00 Mechanical Ventilator 02/27/19 08:00 81 02/27/19 08:00 40 02/27/19 08:00 98.4 77 19 139/62 (87) 100 02/27/19 07:05 80 33 40 02/27/19 05:04 77 24 40 02/27/19 04:00 40 02/27/19 04:00 Mechanical Ventilator 02/27/19 04:00 99.5 73 19 120/56 (77) 100 02/27/19 04:00 70 02/27/19 03:23 80 28 40 02/27/19 01:00 78 22 40 02/27/19 00:00 Mechanical Ventilator 02/27/19 00:00 84 02/27/19 00:00 99.5 84 26 156/69 (98) 100 02/26/19 23:09 76 23 40 02/26/19 20:59 99.9 02/26/19 20:45 79 23 40 02/26/19 20:28 72 143/68 02/26/19 20:00 Mechanical Ventilator 02/26/19 20:00 100.6 72 20 143/68 (93) 100 02/26/19 20:00 40 02/26/19 19:44 71 02/26/19 19:21 76 26 40 02/26/19 17:18 73 19 40 02/26/19 16:03 Mechanical Ventilator 02/26/19 16:02 40 02/26/19 16:00 101.5 75 20 141/75 (97) 100 02/26/19 16:00 77 02/26/19 15:00 74 19 40 I&O Intake and Output 02/26/19 02/27/19 19:00 07:00 Intake Total 1077.416 ml 587.5 ml Output Total 400 ml 250 ml Balance 677.416 ml 337.5 ml Free Water 120 ml 200 ml IV Total 587.416 ml 137.5 ml Tube Feeding 360 ml 240 ml Other 10 ml 10 ml Output Urine Total 375 ml 250 ml Drainage Total 25 ml # Bowel Movements 3 5 Dressing: dry Wound: clean Cardiovascular: RSR Respiratory: clear Abdomen: soft, non-tender, present bowel sounds, non-distended Extremities: no tenderness, no cyanosis Laboratory Tests Test 02/27/19 09:08 White Blood Count 14.8 K/UL (4.8-10.8) H Red Blood Count 3.17 M/UL (4.20-5.40) L Hemoglobin 9.3 G/DL (12.0-16.0) L Hematocrit 28.7 % (37.0-47.0) L Mean Corpuscular Volume 91 FL (80-99) Mean Corpuscular Hemoglobin 29.2 PG (27.0-31.0) Mean Corpuscular Hemoglobin Concent 32.3 G/DL (32.0-36.0) Red Cell Distribution Width 15.1 % (11.6-14.8) H Platelet Count 332 K/UL (150-450) Mean Platelet Volume 5.1 FL (6.5-10.1) L Neutrophils (%) (Auto) 72.2 % (45.0-75.0) Lymphocytes (%) (Auto) 15.7 % (20.0-45.0) L Monocytes (%) (Auto) 5.8 % (1.0-10.0) Eosinophils (%) (Auto) 5.9 % (0.0-3.0) H Basophils (%) (Auto) 0.4 % (0.0-2.0) Sodium Level 143 MMOL/L (136-145) Potassium Level 3.2 MMOL/L (3.5-5.1) L Chloride Level 110 MMOL/L (98-107) H Carbon Dioxide Level 24 MMOL/L (21-32) Anion Gap 9 mmol/L (5-15) Blood Urea Nitrogen 12 mg/dL (7-18) Creatinine 0.7 MG/DL (0.55-1.30) Estimat Glomerular Filtration Rate mL/min (>60) Glucose Level 126 MG/DL (74-106) H Calcium Level 8.8 MG/DL (8.5-10.1) Total Bilirubin 0.4 MG/DL (0.2-1.0) Aspartate Amino Transf (AST/SGOT) 19 U/L (15-37) Alanine Aminotransferase (ALT/SGPT) 13 U/L (12-78) Alkaline Phosphatase 63 U/L (46-116) Total Protein 7.1 G/DL (6.4-8.2) Albumin 2.0 G/DL (3.4-5.0) L Globulin 5.1 g/dL Albumin/Globulin Ratio 0.4 (1.0-2.7) L Plan Problems: (1) Abdominal distension Assessment & Plan: The colon is mostly distended with gas and fluid with areas of normal caliber, no definite obstructive lesion. There is diffuse marked distention of the small bowel with free communication of the distended distal small bowel lumen with the colon lumen. Findings are presumably functional in nature, as no obstructive lesion or transition point is demonstrated Evidence of prior proximal colectomy with ileocolic anastomosis Right lower quadrant retroperitoneal collection, with a pigtail drainage catheter at the cephalad aspect, consistent with a recently drained abscess. There may be a small amount of residual material within the collection Basilar or parenchymal atelectatic changes and possible consolidation Hepatic cyst. Hepatic subcentimeter low-attenuation lesions which are too small to characterize, most likely benign simple cysts. Other findings as noted, including gastrostomy, Abdi catheter, degenerative spondylosis (2) Abdominal abscess Assessment & Plan: Findings: Completion image demonstrates satisfactory position of the new drainage catheter note that the inferior aspect of the collection could not be accessed. However, it is not clear that this either represents fluid, is represents scar tissue. Impression: Successful replacement of right retroperitoneal collection drainage catheter, placed slightly deeper into the collection and previously. Only a scant amount of bloody fluid aspirated. The specimen was sent to the lab (3) Decubitus skin ulcer Assessment & Plan: Pt presented on admission with open DTPI sacrum. Multiple open wounds within base of wound with trace amt of slough at sacrococcygeal area ,surrounding dark and indurated borders.Non-blanching erythema periwound. (L) 7cm x (W)7.5cm x (D)0.2cm. Non-blanchable erythema without induration/fluctuance R and L heels. Skin Assessed under trach collar. Erythema noted to R side of neck but skin is otherwise intact. Tx.Plan: Cleanse Sacral wound with saline. Apply Therahoney. Apply Moisture Barrier Paste periwound. Cover with Optifoam drsg. Change every 3 days and prn. Apply Cavilon Skin Barrier to both heels.Cover with Optifoam drsg.Change every 7 days and prn. APM/HCELSEA Mattress overlay. Reposition at least every 2hours and prn. Off-load heels with pillow. Additional Comments drain Junior Fleming Feb 27, 2019 13:58
[2019-02-27 16:00] VITALS: BP 115/53
[2019-02-27] MEDS ORDERED: NS 275ml ONE (17:53)
[2019-02-27 20:00] VITALS: BP 122/62
[2019-02-28] VITALS: BP 124/56
[2019-02-28] MEDS: Acetaminophen 650mg/20.3ml GT PRN ×2 (00:02→17:40)
[2019-02-28 04:00] VITALS: BP 123/54
[2019-02-28 05:21] LABS: BASOPHILS % (AUTO) 0.6 % (0.0-2.0); EOSINOPHILS % (AUTO) 4.4 % (0.0-3.0); HEMATOCRIT 29.4 % (37.0-47.0); HEMOGLOBIN 9.3 G/DL (12.0-16.0); LYMPHOCYTES % (AUTO) 12.7 % (20.0-45.0); MEAN CORPUSCULAR VOLUME 92 FL (80-99); MONOCYTES % (AUTO) 5.8 % (1.0-10.0); NEUTROPHILS % (AUTO) 76.5 % (45.0-75.0); PLATELET COUNT 323 K/UL (150-450); RED BLOOD COUNT 3.21 M/UL (4.20-5.40); RED CELL DISTRIBUTION WIDTH 15.3 % (11.6-14.8); WHITE BLOOD COUNT 13.1 K/UL (4.8-10.8)
[2019-02-28] MEDS: Amiodarone 200mg tab GT SCH ×4 (05:35→22:05)
[2019-02-28] MEDS: metroNIDAZOLE 500mg tab GT SCH ×4 (05:35→22:05)
[2019-02-28] MEDS: Piperacillin/Tazobactam 3.375 GM in NS 110 ML IVPB SCH ×4 (05:35→22:05)
[2019-02-28 06:08] LABS: ALANINE AMINOTRANSFERASE 16 U/L (12-78); ALBUMIN/GLOBULIN RATIO 0.4 (1.0-2.7); ALKALINE PHOSPHATASE 66 U/L (46-116); ANION GAP 13 mmol/L (5-15); ASPARTATE AMINO TRANSFERASE 31 U/L (15-37); BILIRUBIN,TOTAL 0.3 MG/DL (0.2-1.0); BLOOD UREA NITROGEN 11 mg/dL (7-18); CALCIUM 8.5 MG/DL (8.5-10.1); CARBON DIOXIDE 21 MMOL/L (21-32); CHLORIDE 111 MMOL/L (98-107); CREATININE 0.8 MG/DL (0.55-1.30); POTASSIUM 3.7 MMOL/L (3.5-5.1); SODIUM 145 MMOL/L (136-145)
[2019-02-28] MEDS: D5 1/2NS 1,000 ML IV SCH (06:21)
[2019-02-28 08:00] VITALS: BP 124/57
--- NOTE | 2019-02-28 08:29 | Pulmonology Progress Note ---
Assessment/Plan Assessment/Plan Impression: Abdominal abscess, s/p drain UTI (urinary tract infection) Abdominal distension Pneumonia Hypertension Atrial fibrillation Respiratory failure Gtube/trach Urogenital implant Decubitus ulcers moderated PCM toxic metabolic encephalopathy possible sepsis Plan IV antibiotics monitor cultures ID evaluation Wound team monitor drainage surgical follow up monitor lytes Monitor labs maintain vent support as able impression, plan, and exam edited and reviewed in detail care discussed with RN Subjective ROS Limited/Unobtainable: Yes Allergies: Coded Allergies: No Known Allergies (Unverified , 02/25/19) Subjective care noted and reviewed on vent cultures noted Objective Last 24 Hour Vital Signs Date Time Temp Pulse Resp B/P (MAP) Pulse Ox O2 Delivery O2 Flow Rate FiO2 02/28/19 07:31 72 21 40 02/28/19 05:20 100 21 40 02/28/19 04:00 40 02/28/19 04:00 98.2 80 20 123/54 (77) 100 02/28/19 04:00 Mechanical Ventilator 02/28/19 04:00 76 02/28/19 03:02 96 32 40 02/28/19 01:19 99 22 100 Mechanical Ventilator 40.0 40 80 22 100 02/28/19 01:16 80 26 40 02/28/19 01:00 99.5 02/28/19 00:32 99.8 02/28/19 00:00 100.5 78 20 124/56 (78) 100 02/28/19 00:00 Mechanical Ventilator 02/28/19 00:00 40 02/28/19 00:00 79 02/27/19 23:27 77 15 40 02/27/19 21:27 78 20 40 02/27/19 21:13 70 122/62 02/27/19 20:00 99.5 77 21 122/62 (82) 100 02/27/19 20:00 70 02/27/19 20:00 40 02/27/19 20:00 Mechanical Ventilator 02/27/19 19:00 78 21 40 02/27/19 16:37 68 17 40 02/27/19 16:00 40 02/27/19 16:00 Mechanical Ventilator 02/27/19 16:00 98.8 73 24 115/53 (73) 100 02/27/19 16:00 74 02/27/19 15:11 76 24 40 8/25/19 13:10 74 18 40 02/27/19 12:00 Mechanical Ventilator 02/27/19 12:00 72 02/27/19 12:00 99.3 75 22 129/53 (78) 100 02/27/19 12:00 40 02/27/19 10:55 84 28 40 02/27/19 08:32 77 18 40 Intake and Output 02/27/19 02/28/19 19:00 07:00 Intake Total 1392.916 ml 822.5 ml Output Total 665 ml 710 ml Balance 727.916 ml 112.5 ml Free Water 140 ml IV Total 882.916 ml 482.5 ml Tube Feeding 360 ml 340 ml Other 10 ml Output Urine Total 350 ml 350 ml Stool Total 300 ml 350 ml Drainage Total 15 ml 10 ml # Bowel Movements 3 2 Objective WDWN NAD on vent and trach ALOC clear breath sounds bilaterally without rhonchi or wheeze [id number] without MRG NABS nontender no HSM; some distention; Gt no CC some edema nonfocal reduced LOC Microbiology Date/Time Source Procedure Growth Status 02/26/19 08:00 Stool Clostridium difficile Toxin Assay - Final Complete 02/25/19 15:10 Abdominal Abscess Gram Stain - Final Resulted 02/25/19 15:10 Abdominal Abscess Aerobic Culture - Preliminary NO GROWTH Resulted 02/25/19 15:10 Abdominal Abscess Anaerobic Culture - Preliminary NO GROWTH Resulted Laboratory Tests 02/27/19 09:08: White Blood Count 14.8H, Red Blood Count 3.17L, Hemoglobin 9.3L, Hematocrit 28.7L, Mean Corpuscular Volume 91, Mean Corpuscular Hemoglobin 29.2, Mean Corpuscular Hemoglobin Concent 32.3, Red Cell Distribution Width 15.1H, Platelet Count 332, Mean Platelet Volume 5.1L, Neutrophils (%) (Auto) 72.2, Lymphocytes (%) (Auto) 15.7L, Monocytes (%) (Auto) 5.8, Eosinophils (%) (Auto) 5.9H, Basophils (%) (Auto) 0.4, Sodium Level 143, Potassium Level 3.2L, Chloride Level 110H, Carbon Dioxide Level 24, Anion Gap 9, Blood Urea Nitrogen 12, Creatinine 0.7, Estimat Glomerular Filtration Rate , Glucose Level 126H, Calcium Level 8.8, Total Bilirubin 0.4, Aspartate Amino Transf (AST/SGOT) 19, Alanine Aminotransferase (ALT/SGPT) 13, Alkaline Phosphatase 63, Total Protein 7.1, Albumin 2.0L, Globulin 5.1, Albumin/Globulin Ratio 0.4L 02/28/19 03:25: White Blood Count 13.1H, Red Blood Count 3.21L, Hemoglobin 9.3L, Hematocrit 29.4L, Mean Corpuscular Volume 92, Mean Corpuscular Hemoglobin 29.0, Mean Corpuscular Hemoglobin Concent 31.7L, Red Cell Distribution Width 15.3H, Platelet Count 323, Mean Platelet Volume 5.1L, Neutrophils (%) (Auto) 76.5H, Lymphocytes (%) (Auto) 12.7L, Monocytes (%) (Auto) 5.8, Eosinophils (%) (Auto) 4.4H, Basophils (%) (Auto) 0.6, Sodium Level 145, Potassium Level 3.7, Chloride Level 111H, Carbon Dioxide Level 21, Anion Gap 13, Blood Urea Nitrogen 11, Creatinine 0.8, Estimat Glomerular Filtration Rate , Glucose Level 160H, Calcium Level 8.5, Total Bilirubin 0.3, Aspartate Amino Transf (AST/SGOT) 31, Alanine Aminotransferase (ALT/SGPT) 16, Alkaline Phosphatase 66, Total Protein 6.6, Albumin 2.0L, Globulin 4.6, Albumin/Globulin Ratio 0.4L, Erythrocyte Sedimentation Rate 119H, C-Reactive Protein, Quantitative 7.8H Current Medications Medications (Trade) Dose Ordered Sig/Oz Route PRN Reason Start Time Stop Time Status Last Admin Dose Admin Acetaminophen (Tylenol) 650 mg Q4H PRN GT Mild Pain/Temp > 100.5 02/25/19 07:00 03/27/19 06:59 02/28/19 00:02 Al Hydroxide/Mg Hydroxide (Mylanta) 30 ml Q4H PRN ORAL dyspepsia 02/25/19 07:45 03/27/19 07:44 Albuterol/ Ipratropium (Albuterol/ Ipratropium) 3 ml Q4H PRN HHN Shortness of Breath 02/25/19 07:45 03/02/19 07:44 02/28/19 01:12 Amiodarone HCl (Cordarone) 200 mg EVERY 8 HOURS GT 02/25/19 14:00 03/27/19 13:59 02/28/19 05:35 Amlodipine Besylate (Norvasc) 5 mg Q12HR GT 02/25/19 09:00 03/27/19 08:59 02/27/19 21:13 Ascorbic Acid (Vitamin C) 500 mg DAILY GT 02/25/19 09:00 03/27/19 08:59 02/27/19 08:13 Dextrose/Sodium Chloride 1,000 ml @ 30 mls/hr Q24H IV 02/27/19 07:15 03/29/19 07:14 02/28/19 06:21 Heparin Sodium (Porcine) (Heparin 5000 units/ml) 5,000 units EVERY 12 HOURS SUBQ 02/25/19 21:00 03/27/19 20:59 02/27/19 21:13 Hydralazine HCl (Apresoline) 10 mg Q6H PRN GT For High Blood Pressure 02/25/19 08:15 03/27/19 08:14 Iopamidol (Isovue-300 100ml) 100 ml NOW PRN INJ Radiology Procedure 02/25/19 00:15 Lansoprazole (Prevacid) 30 mg DAILY GT 02/25/19 09:00 03/27/19 08:59 02/27/19 08:14 Metronidazole (Flagyl) 500 mg Q8HR GT 02/27/19 07:15 03/06/19 07:14 02/28/19 05:35 Piperacillin Sod/ Tazobactam Sod 3.375 gm/Sodium Chloride 110 ml @ 27.5 mls/hr Q8HR IVPB 02/25/19 14:00 03/04/19 13:59 02/28/19 05:35 Vancomycin HCl (Vanco rx to dose) 1 ea DAILY PRN MISC Per rx protocol 02/25/19 07:00 03/27/19 06:59 Vancomycin HCl 1 gm/Dextrose 275 ml @ 183.708 mls/hr Q24H IVPB 02/26/19 10:00 03/03/19 09:59 02/27/19 10:11 Kike Lr MD Feb 28, 2019 08:29
[2019-02-28] MEDS: Ascorbic Acid 500mg tab GT SCH (08:57)
[2019-02-28] MEDS: Heparin 5000 units/ml inj SUBQ SCH ×2 (08:59→20:31)
[2019-02-28] MEDS: Vancomycin 1.5gm Premix IVPB SCH (10:19)
[2019-02-28 10:27] LABS: CHOLESTEROL 153 MG/DL (< 200); HDL CHOLESTEROL 53 MG/DL (40-60); TRIGLYCERIDES 47 MG/DL (30-150)
[2019-02-28 11:52] VITALS: BP 136/72
--- NOTE | 2019-02-28 15:17 | Surgery Progress Note ---
Surgery Progress Note Subjective Additional Comments leukocytosis trending down abd exam stable no acute evenets labs noted Objective Last 24 Hour Vital Signs Date Time Temp Pulse Resp B/P (MAP) Pulse Ox O2 Delivery O2 Flow Rate FiO2 02/28/19 13:30 76 31 40 02/28/19 12:00 Mechanical Ventilator 02/28/19 12:00 84 02/28/19 12:00 40 02/28/19 11:54 79 28 40 02/28/19 11:52 97.2 81 20 136/72 (93) 100 02/28/19 09:28 71 15 40 02/28/19 08:57 76 124/57 02/28/19 08:00 40 02/28/19 08:00 Mechanical Ventilator 02/28/19 08:00 76 02/28/19 08:00 98.6 72 20 124/57 (79) 100 02/28/19 07:31 72 21 40 02/28/19 05:20 100 21 40 02/28/19 04:00 40 02/28/19 04:00 98.2 80 20 123/54 (77) 100 02/28/19 04:00 Mechanical Ventilator 02/28/19 04:00 76 02/28/19 03:02 96 32 40 02/28/19 01:19 99 22 100 Mechanical Ventilator 40.0 40 80 22 100 02/28/19 01:16 80 26 40 02/28/19 01:00 99.5 02/28/19 00:32 99.8 02/28/19 00:00 100.5 78 20 124/56 (78) 100 02/28/19 00:00 Mechanical Ventilator 02/28/19 00:00 40 02/28/19 00:00 79 02/27/19 23:27 77 15 40 02/27/19 21:27 78 20 40 02/27/19 21:13 70 122/62 02/27/19 20:00 99.5 77 21 122/62 (82) 100 02/27/19 20:00 70 02/27/19 20:00 40 02/27/19 20:00 Mechanical Ventilator 02/27/19 19:00 78 21 40 02/27/19 16:37 68 17 40 02/27/19 16:00 40 02/27/19 16:00 Mechanical Ventilator 02/27/19 16:00 98.8 73 24 115/53 (73 100 02/27/19 16:00 74 I&O Intake and Output 02/27/19 02/28/19 19:00 07:00 Intake Total 1392.916 ml 822.5 ml Output Total 665 ml 710 ml Balance 727.916 ml 112.5 ml Free Water 140 ml IV Total 882.916 ml 482.5 ml Tube Feeding 360 ml 340 ml Other 10 ml Output Urine Total 350 ml 350 ml Stool Total 300 ml 350 ml Drainage Total 15 ml 10 ml # Bowel Movements 3 2 Dressing: dry Wound: clean Drains: other Cardiovascular: RSR Respiratory: clear Abdomen: soft, present bowel sounds Extremities: no cyanosis Laboratory Tests Test 02/28/19 03:25 02/28/19 09:05 White Blood Count 13.1 K/UL (4.8-10.8) H Red Blood Count 3.21 M/UL (4.20-5.40) L Hemoglobin 9.3 G/DL (12.0-16.0) L Hematocrit 29.4 % (37.0-47.0) L Mean Corpuscular Volume 92 FL (80-99) Mean Corpuscular Hemoglobin 29.0 PG (27.0-31.0) Mean Corpuscular Hemoglobin Concent 31.7 G/DL (32.0-36.0) L Red Cell Distribution Width 15.3 % (11.6-14.8) H Platelet Count 323 K/UL (150-450) Mean Platelet Volume 5.1 FL (6.5-10.1) L Neutrophils (%) (Auto) 76.5 % (45.0-75.0) H Lymphocytes (%) (Auto) 12.7 % (20.0-45.0) L Monocytes (%) (Auto) 5.8 % (1.0-10.0) Eosinophils (%) (Auto) 4.4 % (0.0-3.0) H Basophils (%) (Auto) 0.6 % (0.0-2.0) Erythrocyte Sedimentation Rate 119 MM/HR (0-30) H Sodium Level 145 MMOL/L (136-145) Potassium Level 3.7 MMOL/L (3.5-5.1) Chloride Level 111 MMOL/L (98-107) H Carbon Dioxide Level 21 MMOL/L (21-32) Anion Gap 13 mmol/L (5-15) Blood Urea Nitrogen 11 mg/dL (7-18) Creatinine 0.8 MG/DL (0.55-1.30) Estimat Glomerular Filtration Rate mL/min (>60) Glucose Level 160 MG/DL (74-106) H Calcium Level 8.5 MG/DL (8.5-10.1) Total Bilirubin 0.3 MG/DL (0.2-1.0) Aspartate Amino Transf (AST/SGOT) 31 U/L (15-37) Alanine Aminotransferase (ALT/SGPT) 16 U/L (12-78) Alkaline Phosphatase 66 U/L (46-116) C-Reactive Protein, Quantitative 7.8 mg/dL (0.00-0.90) H Total Protein 6.6 G/DL (6.4-8.2) Albumin 2.0 G/DL (3.4-5.0) L Globulin 4.6 g/dL Albumin/Globulin Ratio 0.4 (1.0-2.7) L Triglycerides Level 47 MG/DL (30-150) Cholesterol Level 153 MG/DL (< 200) LDL Cholesterol 93 mg/dL (<100) HDL Cholesterol 53 MG/DL (40-60) Cholesterol/HDL Ratio 2.9 (3.3-4.4) L Vancomycin Level Trough 6.4 ug/mL (5.0-12.0) Plan Problems: (1) Abdominal distension Assessment & Plan: The colon is mostly distended with gas and fluid with areas of normal caliber, no definite obstructive lesion. There is diffuse marked distention of the small bowel with free communication of the distended distal small bowel lumen with the colon lumen. Findings are presumably functional in nature, as no obstructive lesion or transition point is demonstrated Evidence of prior proximal colectomy with ileocolic anastomosis Right lower quadrant retroperitoneal collection, with a pigtail drainage catheter at the cephalad aspect, consistent with a recently drained abscess. There may be a small amount of residual material within the collection Basilar or parenchymal atelectatic changes and possible consolidation Hepatic cyst. Hepatic subcentimeter low-attenuation lesions which are too small to characterize, most likely benign simple cysts. Other findings as noted, including gastrostomy, Badi catheter, degenerative spondylosis (2) Abdominal abscess Assessment & Plan: Findings: Completion image demonstrates satisfactory position of the new drainage catheter note that the inferior aspect of the collection could not be accessed. However, it is not clear that this either represents fluid, is represents scar tissue. Impression: Successful replacement of right retroperitoneal collection drainage catheter, placed slightly deeper into the collection and previously. Only a scant amount of bloody fluid aspirated. The specimen was sent to the lab (3) Decubitus skin ulcer Assessment & Plan: Pt presented on admission with open DTPI sacrum. Multiple open wounds within base of wound with trace amt of slough at sacrococcygeal area ,surrounding dark and indurated borders.Non-blanching erythema periwound. (L) 7cm x (W)7.5cm x (D)0.2cm. Non-blanchable erythema without induration/fluctuance R and L heels. Skin Assessed under trach collar. Erythema noted to R side of neck but skin is otherwise intact. Tx.Plan: Cleanse Sacral wound with saline. Apply Therahoney. Apply Moisture Barrier Paste periwound. Cover with Optifoam drsg. Change every 3 days and prn. Apply Cavilon Skin Barrier to both heels.Cover with Optifoam drsg.Change every 7 days and prn. APM/CHELSEA Mattress overlay. Reposition at least every 2hours and prn. Off-load heels with pillow. Junior Stone Feb 28, 2019 15:17
[2019-02-28 16:00] VITALS: BP 141/76
[2019-02-28 20:00] VITALS: BP 159/98
[2019-03-01] VITALS: BP 149/71
[2019-03-01] MEDS: Acetaminophen 650mg/20.3ml GT PRN ×2 (01:55→16:07)
[2019-03-01 04:00] VITALS: BP 133/60
[2019-03-01 05:27] LABS: CREATINE KINASE 27 U/L (26-308)
[2019-03-01] MEDS: metroNIDAZOLE 500mg tab GT SCH (05:53)
[2019-03-01] MEDS: Amiodarone 200mg tab GT SCH ×3 (05:53→21:15)
[2019-03-01] MEDS: Piperacillin/Tazobactam 3.375 GM in NS 110 ML IVPB SCH ×3 (05:53→22:15)
[2019-03-01] MEDS: D5 1/2NS 1,000 ML IV SCH (06:22)
[2019-03-01 07:56] VITALS: BP 125/51
--- NOTE | 2019-03-01 08:31 | Pulmonology Progress Note ---
Assessment/Plan Assessment/Plan Impression: Abdominal abscess, s/p drain UTI (urinary tract infection) Abdominal distension Pneumonia Hypertension Atrial fibrillation Respiratory failure Gtube/trach Urogenital implant Decubitus ulcers moderated PCM toxic metabolic encephalopathy possible sepsis Plan IV antibiotics monitor cultures ID evaluation called Wound team to follow monitor drainage surgical follow up monitor lytes Monitor labs for change maintain vent support as able prognosis poor impression, plan, and exam edited and reviewed in detail care discussed with RN Subjective ROS Limited/Unobtainable: Yes Allergies: Coded Allergies: No Known Allergies (Unverified , 02/25/19) Subjective care noted and reviewed on vent cultures noted d/w family- want end of life care likely 03/06 Objective Last 24 Hour Vital Signs Date Time Temp Pulse Resp B/P (MAP) Pulse Ox O2 Delivery O2 Flow Rate FiO2 03/01/19 07:56 98.2 74 20 125/51 (75) 100 03/01/19 07:10 72 24 40 03/01/19 04:57 82 18 40 03/01/19 04:00 80 03/01/19 04:00 98.2 77 20 133/60 (84) 100 03/01/19 04:00 40 03/01/19 04:00 Mechanical Ventilator 03/01/19 03:14 78 20 40 03/01/19 00:56 80 19 40 03/01/19 00:00 40 03/01/19 00:00 99.1 94 20 149/71 (97) 100 03/01/19 00:00 Mechanical Ventilator 02/28/19 23:05 76 22 40 02/28/19 21:08 78 21 40 02/28/19 20:30 88 159/98 02/28/19 20:00 73 02/28/19 20:00 40 02/28/19 20:00 99.1 88 20 159/98 (118) 100 02/28/19 20:00 Mechanical Ventilator 02/28/19 19:05 74 24 40 02/28/19 17:00 75 20 40 02/28/19 16:00 Mechanical Ventilator 02/28/19 16:00 40 02/28/19 16:00 82 02/28/19 16:00 99.9 84 20 141/76 (97) 100 02/28/19 15:40 80 24 40 02/28/19 13:30 76 31 40 02/28/19 12:00 Mechanical Ventilator 02/28/19 12:00 84 02/28/19 12:00 40 02/28/19 11:54 79 28 40 02/28/19 11:52 97.2 81 20 136/72 (93) 100 02/28/19 09:28 71 15 40 02/28/19 08:57 76 124/57 Intake and Output 02/28/19 03/01/19 19:00 07:00 Intake Total 660 ml 995.0 ml Output Total 1200 ml 1310 ml Balance -540 ml -315.0 ml Free Water 150 ml 50 ml IV Total 30 ml 455.0 ml Tube Feeding 480 ml 490 ml Output Urine Total 600 ml 800 ml Stool Total 600 ml 500 ml Drainage Total 10 ml Other 0 ml 0 ml Objective WDWN NAD on vent and trach ALOC clear breath sounds bilaterally without rhonchi or wheeze [id number] without MRG NABS nontender no HSM; some distention; Gt no CC some edema nonfocal reduced LOC Laboratory Tests 02/28/19 09:05: Vancomycin Level Trough 6.4 03/01/19 03:20: Total Creatine Kinase 27, Troponin I 0.005 Current Medications Medications (Trade) Dose Ordered Sig/Oz Route PRN Reason Start Time Stop Time Status Last Admin Dose Admin Acetaminophen (Tylenol) 650 mg Q4H PRN GT Mild Pain/Temp > 100.5 02/25/19 07:00 03/27/19 06:59 03/01/19 01:55 Al Hydroxide/Mg Hydroxide (Mylanta) 30 ml Q4H PRN ORAL dyspepsia 02/25/19 07:45 03/27/19 07:44 Albuterol/ Ipratropium (Albuterol/ Ipratropium) 3 ml Q4H PRN HHN Shortness of Breath 02/25/19 07:45 03/02/19 07:44 02/28/19 01:12 Amiodarone HCl (Cordarone) 200 mg EVERY 8 HOURS GT 02/25/19 14:00 03/27/19 13:59 03/01/19 05:53 Amlodipine Besylate (Norvasc) 5 mg Q12HR GT 02/25/19 09:00 03/27/19 08:59 02/28/19 20:30 Ascorbic Acid (Vitamin C) 500 mg DAILY GT 02/25/19 09:00 03/27/19 08:59 02/28/19 08:57 Dextrose/Sodium Chloride 1,000 ml @ 30 mls/hr Q24H IV 02/27/19 07:15 03/29/19 07:14 03/01/19 06:22 Heparin Sodium (Porcine) (Heparin 5000 units/ml) 5,000 units EVERY 12 HOURS SUBQ 02/25/19 21:00 03/27/19 20:59 02/28/19 20:31 Hydralazine HCl (Apresoline) 10 mg Q6H PRN GT For High Blood Pressure 02/25/19 08:15 03/27/19 08:14 Iopamidol (Isovue-300 100ml) 100 ml NOW PRN INJ Radiology Procedure 02/25/19 00:15 Lansoprazole (Prevacid) 30 mg DAILY GT 02/25/19 09:00 03/27/19 08:59 02/28/19 08:57 Metronidazole (Flagyl) 500 mg Q8HR GT 02/27/19 07:15 03/06/19 07:14 03/01/19 05:53 Piperacillin Sod/ Tazobactam Sod 3.375 gm/Sodium Chloride 110 ml @ 27.5 mls/hr Q8HR IVPB 02/25/19 14:00 03/04/19 13:59 03/01/19 05:53 Vancomycin HCl (Vanco rx to dose) 1 ea DAILY PRN MISC Per rx protocol 02/25/19 07:00 03/27/19 06:59 Vancomycin HCl/ Dextrose 275 ml @ 137.5 mls/ hr Q24H IVPB 02/28/19 11:00 03/05/19 10:59 02/28/19 10:19 Kike Lr MD Mar 01, 2019 08:31
[2019-03-01] MEDS: Ascorbic Acid 500mg tab GT SCH (08:36)
[2019-03-01] MEDS: Heparin 5000 units/ml inj SUBQ SCH ×2 (08:37→21:18)
[2019-03-01] MEDS: Vancomycin 1.5gm Premix IVPB SCH (10:17)
[2019-03-01 12:00] VITALS: BP 119/54
--- NOTE | 2019-03-01 14:02 | Surgery Progress Note ---
Surgery Progress Note Subjective Additional Comments low grade fevers leukocytosis exam stable drain with minimal output will repeat CT soon to eval if drain completely resolved abscess Objective Last 24 Hour Vital Signs Date Time Temp Pulse Resp B/P (MAP) Pulse Ox O2 Delivery O2 Flow Rate FiO2 03/01/19 13:07 69 03/01/19 13:03 75 27 40 03/01/19 12:00 Mechanical Ventilator 03/01/19 12:00 40 03/01/19 12:00 99.9 75 20 119/54 (75) 100 03/01/19 11:22 78 28 40 03/01/19 08:44 77 25 40 03/01/19 08:36 74 125/51 03/01/19 08:00 69 03/01/19 08:00 40 03/01/19 08:00 Mechanical Ventilator 03/01/19 07:56 98.2 74 20 125/51 (75) 100 03/01/19 07:10 72 24 40 03/01/19 04:57 82 18 40 03/01/19 04:00 80 03/01/19 04:00 98.2 77 20 133/60 (84) 100 03/01/19 04:00 40 03/01/19 04:00 Mechanical Ventilator 03/01/19 03:14 78 20 40 03/01/19 00:56 80 19 40 03/01/19 00:00 40 03/01/19 00:00 99.1 94 20 149/71 (97) 100 03/01/19 00:00 Mechanical Ventilator 02/28/19 23:05 76 22 40 02/28/19 21:08 78 21 40 02/28/19 20:30 88 159/98 02/28/19 20:00 73 02/28/19 20:00 40 02/28/19 20:00 99.1 88 20 159/98 (118) 100 02/28/19 20:00 Mechanical Ventilator 02/28/19 19:05 74 24 40 02/28/19 17:00 75 20 40 02/28/19 16:00 Mechanical Ventilator 02/28/19 16:00 40 02/28/19 16:00 82 02/28/19 16:00 99.9 84 20 141/76 (97) 100 02/28/19 15:40 80 24 40 I&O Intake and Output 02/28/19 03/01/19 19:00 07:00 Intake Total 660 ml 995.0 ml Output Total 1200 ml 1310 ml Balance -540 ml -315.0 ml Free Water 150 ml 50 ml IV Total 30 ml 455.0 ml Tube Feeding 480 ml 490 ml Output Urine Total 600 ml 800 ml Stool Total 600 ml 500 ml Drainage Total 10 ml Other 0 ml 0 ml Laboratory Tests Test 03/01/19 03:20 Total Creatine Kinase 27 U/L (26-308) Troponin I 0.005 ng/mL (0.000-0.056) Plan Problems: (1) Abdominal distension Assessment & Plan: The colon is mostly distended with gas and fluid with areas of normal caliber, no definite obstructive lesion. There is diffuse marked distention of the small bowel with free communication of the distended distal small bowel lumen with the colon lumen. Findings are presumably functional in nature, as no obstructive lesion or transition point is demonstrated Evidence of prior proximal colectomy with ileocolic anastomosis Right lower quadrant retroperitoneal collection, with a pigtail drainage catheter at the cephalad aspect, consistent with a recently drained abscess. There may be a small amount of residual material within the collection Basilar or parenchymal atelectatic changes and possible consolidation Hepatic cyst. Hepatic subcentimeter low-attenuation lesions which are too small to characterize, most likely benign simple cysts. Other findings as noted, including gastrostomy, Abdi catheter, degenerative spondylosis (2) Abdominal abscess Assessment & Plan: drain with minimal output will repeat CT soon to eval if drain completely resolved abscess Findings: Completion image demonstrates satisfactory position of the new drainage catheter note that the inferior aspect of the collection could not be accessed. However, it is not clear that this either represents fluid, is represents scar tissue. Impression: Successful replacement of right retroperitoneal collection drainage catheter, placed slightly deeper into the collection and previously. Only a scant amount of bloody fluid aspirated. The specimen was sent to the lab (3) Decubitus skin ulcer Assessment & Plan: Pt presented on admission with open DTPI sacrum. Multiple open wounds within base of wound with trace amt of slough at sacrococcygeal area ,surrounding dark and indurated borders.Non-blanching erythema periwound. (L) 7cm x (W)7.5cm x (D)0.2cm. Non-blanchable erythema without induration/fluctuance R and L heels. Skin Assessed under trach collar. Erythema noted to R side of neck but skin is otherwise intact. Tx.Plan: Cleanse Sacral wound with saline. Apply Therahoney. Apply Moisture Barrier Paste periwound. Cover with Optifoam drsg. Change every 3 days and prn. Apply Cavilon Skin Barrier to both heels.Cover with Optifoam drsg.Change every 7 days and prn. APM/CHELSEA Mattress overlay. Reposition at least every 2hours and prn. Off-load heels with pillow. Junior Stone Mar 01, 2019 14:02
[2019-03-01 16:00] VITALS: BP 131/61
[2019-03-01 20:00] VITALS: BP 128/62
--- NOTE | 2019-03-01 20:30 | Consultation ---
DATE OF CONSULTATION: 03/01/2019 INFECTIOUS DISEASE CONSULTATION This consult is for coverage of Dr. Tomas. CONSULTING PHYSICIAN: Parth Wells M.D. PRIMARY ATTENDING PHYSICIAN: Efrain Radford M.D. REASON FOR CONSULT: Sepsis and retroperitoneal abscess. HISTORY OF PRESENT ILLNESS: This is an 79-year-old female admitted on 02/25/2019 from nursing facility because of fever of one day, abdominal distention. The patient has respiratory failure and is not a source of history. At the day of admission had WBC of 17.8. However, at the beginning had no significant fever, developed fever of 101.5 on 02/26/2019. CT scan of the abdomen and pelvis showed retroperitoneal abscess and draining area. The patient had CT-guided drainage of retroperitoneal abscess. This time the catheter was placed deeper in collection. A small amount of bloody fluid sent for culture. PAST MEDICAL HISTORY: Significant for ventilator-dependent respiratory failure, hypertension, atrial fibrillation, pressure ulcers in sacral and right heel, and gastrostomy status. ALLERGIES: No known drug allergies. MEDICATIONS: Vancomycin, Flagyl, heparin, Zosyn, amiodarone, amlodipine, vitamin C, Prevacid, hydralazine, Mylanta, albuterol and ipratropium inhaler, and Tylenol. SOCIAL HISTORY: prison resident, bedbound with poor mental and functional status. . REVIEW OF SYSTEMS: Unobtainable. PHYSICAL EXAMINATION: VITAL SIGNS: Temperature 98.2, pulse 78, and blood pressure 125/51. HEAD AND NECK: Status post tracheostomy. HEART: Normal rate. LUNGS: Clear, on ventilator. ABDOMEN: Soft, nontender. Has a G-tube without leaking . Right retroperitoneal pigtail catheter with scant amount of secretion. EXTREMITIES: No edema. LABORATORY AND DIAGNOSTIC DATA: WBC 13.1, hemoglobin 9.3, hematocrit 29.4, and platelets 323,000. Sodium 145, potassium 3.7, chloride 111, bicarb 21, glucose 116. Albumin is 2. CT scan of the abdomen and pelvis showed right lower quadrant retroperitoneal collection. Hepatic cyst. Evidence of proximal colectomy with ileocolic anastomosis, distention of colon. Chest x-ray showed bilateral interstitial disease. Blood culture x2. MRSA negative. Urine culture negative. VRE screen in rectum is positive. Abscess culture is gram-positive cocci. Coagulase-negative Staphylococcus. C. diff test is negative. IMPRESSION: Sepsis with fever and leukocytosis, has right retroperitoneal abscess, has ventilator-dependent respiratory failure, stage II sacral decubitus ulcer, right hip ulcer stage I, VRE carrier, and hypertension. RECOMMENDATION: We will continue with Zosyn and vancomycin. Discontinue Flagyl. We will follow up the cultures and try to narrow antibiotic. At the end of my exam, I thank Dr. Radford for involving me in the care of this patient. Parth Wells M.D. DR: UVALDO JOB#: [id number] CC: [place]
[2019-03-02] VITALS: BP 149/71
[2019-03-02] MEDS: Acetaminophen 650mg/20.3ml GT PRN ×3 (03:03→18:47)
[2019-03-02 04:00] VITALS: BP 151/84
[2019-03-02 05:10] LABS: BASOPHILS % (AUTO) 0.5 % (0.0-2.0); HEMATOCRIT 30.7 % (37.0-47.0); HEMOGLOBIN 9.8 G/DL (12.0-16.0); LYMPHOCYTES % (AUTO) 13.8 % (20.0-45.0); MEAN CORPUSCULAR VOLUME 90 FL (80-99); NEUTROPHILS % (AUTO) 75.7 % (45.0-75.0); PLATELET COUNT 195 K/UL (150-450); RED CELL DISTRIBUTION WIDTH 15.1 % (11.6-14.8); WHITE BLOOD COUNT 16.6 K/UL (4.8-10.8)
[2019-03-02 05:53] LABS: ALANINE AMINOTRANSFERASE 17 U/L (12-78); ALBUMIN/GLOBULIN RATIO 0.4 (1.0-2.7); ALKALINE PHOSPHATASE 65 U/L (46-116); ANION GAP 12 mmol/L (5-15); ASPARTATE AMINO TRANSFERASE 30 U/L (15-37); BILIRUBIN,TOTAL 0.3 MG/DL (0.2-1.0); BLOOD UREA NITROGEN 10 mg/dL (7-18); CALCIUM 8.4 MG/DL (8.5-10.1); CARBON DIOXIDE 22 MMOL/L (21-32); CHLORIDE 111 MMOL/L (98-107); CREATININE 0.9 MG/DL (0.55-1.30); POTASSIUM 3.1 MMOL/L (3.5-5.1); SODIUM 145 MMOL/L (136-145)
[2019-03-02] MEDS: Amiodarone 200mg tab GT SCH ×3 (05:59→21:30)
[2019-03-02] MEDS: Piperacillin/Tazobactam 3.375 GM in NS 110 ML IVPB SCH ×3 (06:00→22:01)
[2019-03-02] MEDS: D5 1/2NS 1,000 ML IV SCH (07:01)
[2019-03-02 08:00] VITALS: BP 158/56
[2019-03-02] MEDS: Ascorbic Acid 500mg tab GT SCH (09:30)
[2019-03-02] MEDS: Heparin 5000 units/ml inj SUBQ SCH ×2 (09:34→21:31)
[2019-03-02 12:00] VITALS: BP 152/74
[2019-03-02] MEDS ORDERED: Vancomycin 750mg/NS 275ml IVPB SCH ×2 (12:00)
--- NOTE | 2019-03-02 12:03 | Infectious Diseases Prog Note ---
Assessment/Plan Assessment/Plan antibiotics : vancomycin iv, zosyn A 1. retroperitoneal abscess s/p CT guided drainage with VRE 2. hypertension 3. atrial fibrillation 4. respiratory failure P 1. continue zosyn 2. d/c iv vancomycin 3. will follow up cultures Subjective ROS Limited/Unobtainable: Yes Allergies: Coded Allergies: No Known Allergies (Unverified , 02/25/19) Objective Vital Signs Last 24 Hour Vital Signs Date Time Temp Pulse Resp B/P (MAP) Pulse Ox O2 Delivery O2 Flow Rate FiO2 03/02/19 11:27 87 27 40 03/02/19 09:30 86 158/76 03/02/19 09:07 83 29 40 03/02/19 08:00 99.6 86 31 158/56 (90) 99 03/02/19 07:24 74 22 40 03/02/19 04:53 90 26 40 03/02/19 04:00 40 03/02/19 04:00 Mechanical Ventilator 03/02/19 04:00 78 03/02/19 04:00 99.7 87 22 151/84 (106) 100 03/02/19 03:33 99.7 03/02/19 02:58 80 20 40 03/02/19 01:28 82 28 40 03/02/19 00:00 102.7 78 21 149/71 (97) 100 03/02/19 00:00 77 03/02/19 00:00 Mechanical Ventilator 03/01/19 23:18 90 29 40 03/01/19 21:14 84 128/62 03/01/19 20:59 84 26 40 03/01/19 20:00 Mechanical Ventilator 03/01/19 20:00 99.5 70 18 128/62 (84) 100 03/01/19 20:00 79 03/01/19 20:00 40 03/01/19 19:01 72 23 40 03/01/19 17:15 74 17 40 03/01/19 17:14 77 03/01/19 16:00 Mechanical Ventilator 03/01/19 16:00 100.5 79 20 131/61 (84) 100 03/01/19 16:00 40 03/01/19 15:06 73 24 40 03/01/19 13:07 69 03/01/19 13:03 75 27 40 03/01/19 13:01 98.1 03/01/19 12:00 Mechanical Ventilator 03/01/19 12:00 40 03/01/19 12:00 99.9 75 20 119/54 (75) 100 Height (Feet): 5 Height (Inches): 1.00 Weight (Pounds): 160 HEENT: status post trach Respiratory/Chest: lungs clear Cardiovascular: normal rate, regular rhythm, no gallop/murmur Abdomen: soft, non tender, other - GT Extremities: no edema Laboratory Tests Test 03/02/19 03:35 03/02/19 10:00 White Blood Count 16.6 K/UL (4.8-10.8) H Red Blood Count 3.40 M/UL (4.20-5.40) L Hemoglobin 9.8 G/DL (12.0-16.0) L Hematocrit 30.7 % (37.0-47.0) L Mean Corpuscular Volume 90 FL (80-99) Mean Corpuscular Hemoglobin 28.7 PG (27.0-31.0) Mean Corpuscular Hemoglobin Concent 31.9 G/DL (32.0-36.0) L Red Cell Distribution Width 15.1 % (11.6-14.8) H Platelet Count 195 K/UL (150-450) Mean Platelet Volume 5.5 FL (6.5-10.1) L Neutrophils (%) (Auto) 75.7 % (45.0-75.0) H Lymphocytes (%) (Auto) 13.8 % (20.0-45.0) L Monocytes (%) (Auto) 6.0 % (1.0-10.0) Eosinophils (%) (Auto) 4.0 % (0.0-3.0) H Basophils (%) (Auto) 0.5 % (0.0-2.0) Erythrocyte Sedimentation Rate 118 MM/HR (0-30) H Sodium Level 145 MMOL/L (136-145) Potassium Level 3.1 MMOL/L (3.5-5.1) L Chloride Level 111 MMOL/L (98-107) H Carbon Dioxide Level 22 MMOL/L (21-32) Anion Gap 12 mmol/L (5-15) Blood Urea Nitrogen 10 mg/dL (7-18) Creatinine 0.9 MG/DL (0.55-1.30) Estimat Glomerular Filtration Rate mL/min (>60) Glucose Level 144 MG/DL (74-106) H Calcium Level 8.4 MG/DL (8.5-10.1) L Total Bilirubin 0.3 MG/DL (0.2-1.0) Aspartate Amino Transf (AST/SGOT) 30 U/L (15-37) Alanine Aminotransferase (ALT/SGPT) 17 U/L (12-78) Alkaline Phosphatase 65 U/L (46-116) C-Reactive Protein, Quantitative 4.1 mg/dL (0.00-0.90) H Total Protein 6.8 G/DL (6.4-8.2) Albumin 2.0 G/DL (3.4-5.0) L Globulin 4.8 g/dL Albumin/Globulin Ratio 0.4 (1.0-2.7) L Vancomycin Level Trough 11.4 ug/mL (5.0-12.0) Current Medications Medications (Trade) Dose Ordered Sig/Oz Route PRN Reason Start Time Stop Time Status Last Admin Dose Admin Acetaminophen (Tylenol) 650 mg Q4H PRN GT Mild Pain/Temp > 100.5 02/25/19 07:00 03/27/19 06:59 03/02/19 03:03 Al Hydroxide/Mg Hydroxide (Mylanta) 30 ml Q4H PRN ORAL dyspepsia 02/25/19 07:45 03/27/19 07:44 Amiodarone HCl (Cordarone) 200 mg EVERY 8 HOURS GT 02/25/19 14:00 03/27/19 13:59 03/02/19 05:59 Amlodipine Besylate (Norvasc) 5 mg Q12HR GT 02/25/19 09:00 03/27/19 08:59 03/02/19 09:30 Ascorbic Acid (Vitamin C) 500 mg DAILY GT 02/25/19 09:00 03/27/19 08:59 03/02/19 09:30 Dextrose/Sodium Chloride 1,000 ml @ 30 mls/hr Q24H IV 02/27/19 07:15 03/29/19 07:14 03/02/19 07:01 Heparin Sodium (Porcine) (Heparin 5000 units/ml) 5,000 units EVERY 12 HOURS SUBQ 02/25/19 21:00 03/27/19 20:59 8/28/19 09:34 Hydralazine HCl (Apresoline) 10 mg Q6H PRN GT For High Blood Pressure 02/25/19 08:15 03/27/19 08:14 Iopamidol (Isovue-300 100ml) 100 ml NOW PRN INJ Radiology Procedure 02/25/19 00:15 Lansoprazole (Prevacid) 30 mg DAILY GT 02/25/19 09:00 03/27/19 08:59 03/02/19 09:30 Piperacillin Sod/ Tazobactam Sod 3.375 gm/Sodium Chloride 110 ml @ 27.5 mls/hr Q8HR IVPB 02/25/19 14:00 03/04/19 13:59 03/02/19 06:00 Potassium Chloride 100 ml @ 100 mls/hr Q1H IVPB 03/02/19 10:30 03/02/19 12:29 03/02/19 11:59 Vancomycin HCl (Vanco rx to dose) 1 ea DAILY PRN MISC Per rx protocol 02/25/19 07:00 03/27/19 06:59 Vancomycin HCl 750 mg/Sodium Chloride 275 ml @ 183.333 mls/hr Q12HR@0000,1200 IVPB 03/02/19 12:00 03/07/19 11:59 03/02/19 11:58 Anusha Tomas MD Mar 02, 2019 12:03
--- NOTE | 2019-03-02 14:22 | Pulmonology Progress Note ---
Assessment/Plan Assessment/Plan Pulmonary Progress Note HPI Patient is an 79-year old woman admitted from a shelter facility. Had fevers and abdominal distention. Patient has a history of trach/vent with G- tube. Patient nonverbal at baseline. No signs of distress upon arrival. No reported shortness of breath nausea or vomiting. No other associated symptoms S/P IR guided repeat abdominal abscess drainage 02/25/2019 - tolerated well Allergies: No Known Allergies Past Medical History: Hypertension, atrial fibrillation, respiratory failure, Gtube/trach, urogenital implant, decubitus ulcers Assessment/Plan Impression: Abdominal abscess, s/p drain UTI (urinary tract infection) Abdominal distension Pneumonia Hypertension Atrial fibrillation Respiratory failure Gtube/trach Urogenital implant Decubitus ulcers moderated PCM toxic metabolic encephalopathy possible sepsis Plan IV antibiotics monitor cultures ID evaluation called Wound team to follow monitor drainage surgical follow up monitor lytes Monitor labs for change maintain vent support as able prognosis poor impression, plan, and exam edited and reviewed in detail care discussed with RN Subjective ROS Limited/Unobtainable: Yes Allergies: Coded Allergies: No Known Allergies (Unverified , 02/25/19) Subjective care noted and reviewed on vent cultures noted family want end of life care likely 03/06 Objective Vital Signs Noted Objective WDWN NAD on vent and trach ALOC clear breath sounds bilaterally without rhonchi or wheeze [id number] without MRG NABS nontender no HSM; some distention; Gt no CC some edema nonfocal reduced LOC Laboratory Tests 02/28/19 09:05: Vancomycin Level Trough 6.4 03/01/19 03:20: Total Creatine Kinase 27, Troponin I 0.005 Current Medications Medications (Trade) Dose Ordered Sig/Oz Route PRN Reason Start Time Stop Time Status Last Admin Dose Admin Acetaminophen (Tylenol) 650 mg Q4H PRN GT Mild Pain/Temp > 100.5 02/25/19 07:00 03/27/19 06:59 03/01/19 01:55 Al Hydroxide/Mg Hydroxide (Mylanta) 30 ml Q4H PRN ORAL dyspepsia 02/25/19 07:45 03/27/19 07:44 Albuterol/ Ipratropium (Albuterol/ Ipratropium) 3 ml Q4H PRN HHN Shortness of Breath 02/25/19 07:45 03/02/19 07:44 02/28/19 01:12 Amiodarone HCl (Cordarone) 200 mg EVERY 8 HOURS GT 02/25/19 14:00 03/27/19 13:59 03/01/19 05:53 Amlodipine Besylate (Norvasc) 5 mg Q12HR GT 02/25/19 09:00 03/27/19 08:59 02/28/19 20:30 Ascorbic Acid (Vitamin C) 500 mg DAILY GT 02/25/19 09:00 03/27/19 08:59 02/28/19 08:57 Dextrose/Sodium Chloride 1,000 ml @ 30 mls/hr Q24H IV 02/27/19 07:15 03/29/19 07:14 03/01/19 06:22 Heparin Sodium (Porcine) (Heparin 5000 units/ml) 5,000 units EVERY 12 HOURS SUBQ 02/25/19 21:00 03/27/19 20:59 02/28/19 20:31 Hydralazine HCl (Apresoline) 10 mg Q6H PRN GT For High Blood Pressure 02/25/19 08:15 03/27/19 08:14 Iopamidol (Isovue-300 100ml) 100 ml NOW PRN INJ Radiology Procedure 02/25/19 00:15 Lansoprazole (Prevacid) 30 mg DAILY GT 02/25/19 09:00 03/27/19 08:59 02/28/19 08:57 Metronidazole (Flagyl) 500 mg Q8HR GT 02/27/19 07:15 03/06/19 07:14 03/01/19 05:53 Piperacillin Sod/ Tazobactam Sod 3.375 gm/Sodium Chloride 110 ml @ 27.5 mls/hr Q8HR IVPB 02/25/19 14:00 03/04/19 13:59 03/01/19 05:53 Vancomycin HCl (Vanco rx to dose) 1 ea DAILY PRN MISC Per rx protocol 02/25/19 07:00 03/27/19 06:59 Vancomycin HCl/ Dextrose 275 ml @ 137.5 mls/ hr Q24H IVPB 02/28/19 11:00 03/05/19 10:59 02/28/19 10:19 Subjective ROS Limited/Unobtainable: No Allergies: Coded Allergies: No Known Allergies (Unverified , 02/25/19) Objective Last 24 Hour Vital Signs Date Time Temp Pulse Resp B/P (MAP) Pulse Ox O2 Delivery O2 Flow Rate FiO2 03/02/19 13:18 81 21 40 03/02/19 12:00 40 03/02/19 12:00 100.3 90 29 152/74 (100) 100 03/02/19 12:00 86 03/02/19 11:27 87 27 40 03/02/19 09:30 86 158/76 03/02/19 09:07 83 29 40 03/02/19 08:00 84 03/02/19 08:00 99.6 86 31 158/56 (90) 99 03/02/19 08:00 40 03/02/19 07:24 74 22 40 03/02/19 04:53 90 26 40 03/02/19 04:00 40 03/02/19 04:00 Mechanical Ventilator 03/02/19 04:00 78 03/02/19 04:00 99.7 87 22 151/84 (106) 100 03/02/19 03:33 99.7 03/02/19 02:58 80 20 40 03/02/19 01:28 82 28 40 03/02/19 00:00 102.7 78 21 149/71 (97) 100 03/02/19 00:00 77 03/02/19 00:00 Mechanical Ventilator 03/01/19 23:18 90 29 40 03/01/19 21:14 84 128/62 03/01/19 20:59 84 26 40 03/01/19 20:00 Mechanical Ventilator 03/01/19 20:00 99.5 70 18 128/62 (84) 100 03/01/19 20:00 79 03/01/19 20:00 40 03/01/19 19:01 72 23 40 03/01/19 17:15 74 17 40 03/01/19 17:14 77 03/01/19 16:00 Mechanical Ventilator 03/01/19 16:00 100.5 79 20 131/61 (84) 100 03/01/19 16:00 40 03/01/19 15:06 73 24 40 Intake and Output 03/01/19 03/02/19 19:00 07:00 Intake Total 780 ml 1200.0 ml Output Total 800 ml 1060 ml Balance -20 ml 140.0 ml Free Water 150 ml 200 ml IV Total 30 ml 440.0 ml Tube Feeding 600 ml 550 ml Other 10 ml Output Urine Total 300 ml 350 ml Stool Total 500 ml 700 ml Drainage Total 10 ml Other 0 ml Laboratory Tests 03/02/19 03:35: White Blood Count 16.6H, Red Blood Count 3.40L, Hemoglobin 9.8L, Hematocrit 30.7L, Mean Corpuscular Volume 90, Mean Corpuscular Hemoglobin 28.7, Mean Corpuscular Hemoglobin Concent 31.9L, Red Cell Distribution Width 15.1H, Platelet Count 195, Mean Platelet Volume 5.5L, Neutrophils (%) (Auto) 75.7H, Lymphocytes (%) (Auto) 13.8L, Monocytes (%) (Auto) 6.0, Eosinophils (%) (Auto) 4.0H, Basophils (%) (Auto) 0.5, Erythrocyte Sedimentation Rate 118H, Sodium Level 145, Potassium Level 3.1L, Chloride Level 111H, Carbon Dioxide Level 22, Anion Gap 12, Blood Urea Nitrogen 10, Creatinine 0.9, Estimat Glomerular Filtration Rate , Glucose Level 144H, Calcium Level 8.4L, Total Bilirubin 0.3, Aspartate Amino Transf (AST/SGOT) 30, Alanine Aminotransferase (ALT/SGPT) 17, Alkaline Phosphatase 65, C-Reactive Protein, Quantitative 4.1H, Total Protein 6.8, Albumin 2.0L, Globulin 4.8, Albumin/Globulin Ratio 0.4L 03/02/19 10:00: Vancomycin Level Trough 11.4 Current Medications Medications (Trade) Dose Ordered Sig/Oz Route PRN Reason Start Time Stop Time Status Last Admin Dose Admin Acetaminophen (Tylenol) 650 mg Q4H PRN GT Mild Pain/Temp > 100.5 02/25/19 07:00 03/27/19 06:59 03/02/19 13:32 Al Hydroxide/Mg Hydroxide (Mylanta) 30 ml Q4H PRN ORAL dyspepsia 02/25/19 07:45 03/27/19 07:44 Amiodarone HCl (Cordarone) 200 mg EVERY 8 HOURS GT 02/25/19 14:00 03/27/19 13:59 03/02/19 13:32 Amlodipine Besylate (Norvasc) 5 mg Q12HR GT 02/25/19 09:00 03/27/19 08:59 03/02/19 09:30 Ascorbic Acid (Vitamin C) 500 mg DAILY GT 02/25/19 09:00 03/27/19 08:59 03/02/19 09:30 Dextrose/Sodium Chloride 1,000 ml @ 30 mls/hr Q24H IV 02/27/19 07:15 03/29/19 07:14 03/02/19 07:01 Heparin Sodium (Porcine) (Heparin 5000 units/ml) 5,000 units EVERY 12 HOURS SUBQ 02/25/19 21:00 03/27/19 20:59 03/02/19 09:34 Hydralazine HCl (Apresoline) 10 mg Q6H PRN GT For High Blood Pressure 02/25/19 08:15 03/27/19 08:14 Iopamidol (Isovue-300 100ml) 100 ml NOW PRN INJ Radiology Procedure 02/25/19 00:15 Lansoprazole (Prevacid) 30 mg DAILY GT 02/25/19 09:00 03/27/19 08:59 03/02/19 09:30 Piperacillin Sod/ Tazobactam Sod 3.375 gm/Sodium Chloride 110 ml @ 27.5 mls/hr Q8HR IVPB 02/25/19 14:00 03/04/19 13:59 03/02/19 06:00 Raúl Ledbetter MD Mar 02, 2019 14:22
[2019-03-02 16:00] VITALS: BP 149/75
--- NOTE | 2019-03-02 16:10 | Surgery Progress Note ---
Surgery Progress Note Subjective Additional Comments fevers leukocytosis drain with no output repeat CT today Objective Last 24 Hour Vital Signs Date Time Temp Pulse Resp B/P (MAP) Pulse Ox O2 Delivery O2 Flow Rate FiO2 03/02/19 14:44 83 30 40 03/02/19 14:02 100.0 03/02/19 13:18 81 21 40 03/02/19 12:00 40 03/02/19 12:00 100.3 90 29 152/74 (100) 100 03/02/19 12:00 86 03/02/19 11:27 87 27 40 03/02/19 09:30 86 158/76 03/02/19 09:07 83 29 40 03/02/19 08:00 84 03/02/19 08:00 99.6 86 31 158/56 (90) 99 03/02/19 08:00 40 03/02/19 07:24 74 22 40 03/02/19 04:53 90 26 40 03/02/19 04:00 40 03/02/19 04:00 Mechanical Ventilator 03/02/19 04:00 78 03/02/19 04:00 99.7 87 22 151/84 (106) 100 03/02/19 02:58 80 20 40 03/02/19 01:28 82 28 40 03/02/19 00:00 102.7 78 21 149/71 (97) 100 03/02/19 00:00 77 03/02/19 00:00 Mechanical Ventilator 03/01/19 23:18 90 29 40 03/01/19 21:14 84 128/62 03/01/19 20:59 84 26 40 03/01/19 20:00 Mechanical Ventilator 03/01/19 20:00 99.5 70 18 128/62 (84) 100 03/01/19 20:00 79 03/01/19 20:00 40 03/01/19 19:01 72 23 40 03/01/19 17:15 74 17 40 03/01/19 17:14 77 I&O Intake and Output 03/01/19 03/02/19 19:00 07:00 Intake Total 780 ml 1227.5 ml Output Total 800 ml 1060 ml Balance -20 ml 167.5 ml Free Water 150 ml 200 ml IV Total 30 ml 467.5 ml Tube Feeding 600 ml 550 ml Other 10 ml Output Urine Total 300 ml 350 ml Stool Total 500 ml 700 ml Drainage Total 10 ml Other 0 ml Drains: other Cardiovascular: RSR Respiratory: clear Abdomen: soft, non-tender, present bowel sounds, non-distended Extremities: no cyanosis, other Laboratory Tests Test 03/02/19 03:35 03/02/19 10:00 White Blood Count 16.6 K/UL (4.8-10.8) H Red Blood Count 3.40 M/UL (4.20-5.40) L Hemoglobin 9.8 G/DL (12.0-16.0) L Hematocrit 30.7 % (37.0-47.0) L Mean Corpuscular Volume 90 FL (80-99) Mean Corpuscular Hemoglobin 28.7 PG (27.0-31.0) Mean Corpuscular Hemoglobin Concent 31.9 G/DL (32.0-36.0) L Red Cell Distribution Width 15.1 % (11.6-14.8) H Platelet Count 195 K/UL (150-450) Mean Platelet Volume 5.5 FL (6.5-10.1) L Neutrophils (%) (Auto) 75.7 % (45.0-75.0) H Lymphocytes (%) (Auto) 13.8 % (20.0-45.0) L Monocytes (%) (Auto) 6.0 % (1.0-10.0) Eosinophils (%) (Auto) 4.0 % (0.0-3.0) H Basophils (%) (Auto) 0.5 % (0.0-2.0) Erythrocyte Sedimentation Rate 118 MM/HR (0-30) H Sodium Level 145 MMOL/L (136-145) Potassium Level 3.1 MMOL/L (3.5-5.1) L Chloride Level 111 MMOL/L (98-107) H Carbon Dioxide Level 22 MMOL/L (21-32) Anion Gap 12 mmol/L (5-15) Blood Urea Nitrogen 10 mg/dL (7-18) Creatinine 0.9 MG/DL (0.55-1.30) Estimat Glomerular Filtration Rate mL/min (>60) Glucose Level 144 MG/DL (74-106) H Calcium Level 8.4 MG/DL (8.5-10.1) L Total Bilirubin 0.3 MG/DL (0.2-1.0) Aspartate Amino Transf (AST/SGOT) 30 U/L (15-37) Alanine Aminotransferase (ALT/SGPT) 17 U/L (12-78) Alkaline Phosphatase 65 U/L (46-116) C-Reactive Protein, Quantitative 4.1 mg/dL (0.00-0.90) H Total Protein 6.8 G/DL (6.4-8.2) Albumin 2.0 G/DL (3.4-5.0) L Globulin 4.8 g/dL Albumin/Globulin Ratio 0.4 (1.0-2.7) L Vancomycin Level Trough 11.4 ug/mL (5.0-12.0) Plan Problems: (1) Abdominal distension Assessment & Plan: The colon is mostly distended with gas and fluid with areas of normal caliber, no definite obstructive lesion. There is diffuse marked distention of the small bowel with free communication of the distended distal small bowel lumen with the colon lumen. Findings are presumably functional in nature, as no obstructive lesion or transition point is demonstrated Evidence of prior proximal colectomy with ileocolic anastomosis Right lower quadrant retroperitoneal collection, with a pigtail drainage catheter at the cephalad aspect, consistent with a recently drained abscess. There may be a small amount of residual material within the collection Basilar or parenchymal atelectatic changes and possible consolidation Hepatic cyst. Hepatic subcentimeter low-attenuation lesions which are too small to characterize, most likely benign simple cysts. Other findings as noted, including gastrostomy, Abdi catheter, degenerative spondylosis (2) Abdominal abscess Assessment & Plan: drain with minimal output will repeat CT soon to eval if drain completely resolved abscess Findings: Completion image demonstrates satisfactory position of the new drainage catheter note that the inferior aspect of the collection could not be accessed. However, it is not clear that this either represents fluid, is represents scar tissue. Impression: Successful replacement of right retroperitoneal collection drainage catheter, placed slightly deeper into the collection and previously. Only a scant amount of bloody fluid aspirated. The specimen was sent to the lab (3) Decubitus skin ulcer Assessment & Plan: Pt presented on admission with open DTPI sacrum. Multiple open wounds within base of wound with trace amt of slough at sacrococcygeal area ,surrounding dark and indurated borders.Non-blanching erythema periwound. (L) 7cm x (W)7.5cm x (D)0.2cm. Non-blanchable erythema without induration/fluctuance R and L heels. Skin Assessed under trach collar. Erythema noted to R side of neck but skin is otherwise intact. Tx.Plan: Cleanse Sacral wound with saline. Apply Therahoney. Apply Moisture Barrier Paste periwound. Cover with Optifoam drsg. Change every 3 days and prn. Apply Cavilon Skin Barrier to both heels.Cover with Optifoam drsg.Change every 7 days and prn. APM/CHELSEA Mattress overlay. Reposition at least every 2hours and prn. Off-load heels with pillow. Junior Stone Mar 02, 2019 16:10
[2019-03-02] MEDS ORDERED: Gastrograffin 30ml ORAL PRN (16:15)
[2019-03-02] MEDS ORDERED: Isovue-300 100ml vial INJ PRN (16:15)
[2019-03-02 20:00] VITALS: BP 133/58
[2019-03-02] MEDS ORDERED: D5 1/2NS 1000ml IV ONE (20:36)
[2019-03-02] MEDS ORDERED: NS 275ml ONE (20:36)
[2019-03-02] MEDS ORDERED: Tubing IV Secondary IV ONE (20:36)
[2019-03-03] VITALS: BP 149/71
[2019-03-03 04:00] VITALS: BP 130/60
[2019-03-03] MEDS: Amiodarone 200mg tab GT SCH ×3 (06:00→21:37)
[2019-03-03] MEDS: Piperacillin/Tazobactam 3.375 GM in NS 110 ML IVPB SCH ×3 (06:00→22:16)
[2019-03-03] MEDS: D5 1/2NS 1,000 ML IV SCH (07:01)
[2019-03-03 08:00] VITALS: BP 141/71
--- NOTE | 2019-03-03 08:28 | Pulmonology Progress Note ---
Assessment/Plan Assessment/Plan Impression: Abdominal abscess, s/p drain UTI (urinary tract infection) Abdominal distension Pneumonia Hypertension Atrial fibrillation Respiratory failure Gtube/trach Urogenital implant Decubitus ulcers moderated PCM toxic metabolic encephalopathy possible sepsis VRE Plan IV antibiotics monitor cultures- isolation ID evaluation noted Wound team to follow monitor drainage and optimize surgical follow up monitor lytes Monitor labs for change maintain vent support as able prognosis poor transfer to snf when stable impression, plan, and exam edited and reviewed in detail care discussed with RN Subjective ROS Limited/Unobtainable: Yes Allergies: Coded Allergies: No Known Allergies (Unverified , 02/25/19) Subjective care noted and reviewed on vent cultures noted d/w family- want end of life care likely 03/06 Objective Last 24 Hour Vital Signs Date Time Temp Pulse Resp B/P (MAP) Pulse Ox O2 Delivery O2 Flow Rate FiO2 03/03/19 07:18 79 22 40 03/03/19 05:17 85 31 40 03/03/19 04:00 82 03/03/19 04:00 Mechanical Ventilator 03/03/19 04:00 40 03/03/19 04:00 99.1 71 28 130/60 (83) 100 03/03/19 03:29 82 29 40 03/03/19 01:06 72 22 40 03/03/19 00:00 73 03/03/19 00:00 98.2 78 25 149/71 (97) 100 03/03/19 00:00 Mechanical Ventilator 03/02/19 23:04 79 25 40 03/02/19 21:30 71 133/58 03/02/19 21:28 71 20 100 Mechanical Ventilator 40 03/02/19 21:20 71 20 40 03/02/19 20:00 Mechanical Ventilator 03/02/19 20:00 40 03/02/19 20:00 99.2 80 26 133/58 (83) 100 03/02/19 20:00 73 03/02/19 19:17 99.2 03/02/19 18:50 82 26 40 03/02/19 16:43 73 18 40 03/02/19 16:00 Mechanical Ventilator 03/02/19 16:00 40 03/02/19 16:00 99.5 84 28 149/75 (99) 100 03/02/19 16:00 70 03/02/19 14:44 83 30 40 03/02/19 13:18 81 21 40 03/02/19 12:00 40 03/02/19 12:00 Mechanical Ventilator 03/02/19 12:00 100.3 90 29 152/74 (100) 100 03/02/19 12:00 86 03/02/19 11:27 87 27 40 03/02/19 09:30 86 158/76 03/02/19 09:07 83 29 40 Intake and Output 03/02/19 03/03/19 19:00 07:00 Intake Total 1374.666 ml 942.500 ml Output Total 830 ml 1370 ml Balance 544.666 ml -427.500 ml Free Water 100 ml 100 ml IV Total 1104.666 ml 422.500 ml Tube Feeding 160 ml 410 ml Other 10 ml 10 ml Output Urine Total 650 ml 500 ml Stool Total 150 ml 850 ml Other 30 ml 20 ml Objective WDWN NAD on vent and trach ALOC clear breath sounds bilaterally without rhonchi or wheeze [id number] without MRG NABS nontender no HSM; some distention; Gt no CC some edema nonfocal reduced LOC Laboratory Tests 03/02/19 10:00: Vancomycin Level Trough 11.4 Current Medications Medications (Trade) Dose Ordered Sig/Oz Route PRN Reason Start Time Stop Time Status Last Admin Dose Admin Acetaminophen (Tylenol) 650 mg Q4H PRN GT Mild Pain/Temp > 100.5 02/25/19 07:00 03/27/19 06:59 03/02/19 18:47 Al Hydroxide/Mg Hydroxide (Mylanta) 30 ml Q4H PRN ORAL dyspepsia 02/25/19 07:45 03/27/19 07:44 Amiodarone HCl (Cordarone) 200 mg EVERY 8 HOURS GT 02/25/19 14:00 03/27/19 13:59 03/03/19 06:00 Amlodipine Besylate (Norvasc) 5 mg Q12HR GT 02/25/19 09:00 03/27/19 08:59 03/02/19 21:30 Ascorbic Acid (Vitamin C) 500 mg DAILY GT 02/25/19 09:00 03/27/19 08:59 03/02/19 09:30 Dextrose/Sodium Chloride 1,000 ml @ 30 mls/hr Q24H IV 02/27/19 07:15 03/29/19 07:14 03/03/19 07:01 Diatrizoate Meglum/ Diatrizoate Sod (Gastrografin) 30 ml NOW PRN ORAL Radiology Procedure 03/02/19 16:15 03/03/19 23:59 Heparin Sodium (Porcine) (Heparin 5000 units/ml) 5,000 units EVERY 12 HOURS SUBQ 02/25/19 21:00 03/27/19 20:59 03/02/19 21:31 Hydralazine HCl (Apresoline) 10 mg Q6H PRN GT For High Blood Pressure 02/25/19 08:15 03/27/19 08:14 Iopamidol (Isovue-300 100ml) 100 ml NOW PRN INJ Radiology Procedure 02/25/19 00:15 Iopamidol (Isovue-300 100ml) 100 ml NOW PRN INJ Radiology Procedure 03/02/19 16:15 03/04/19 16:14 Lansoprazole (Prevacid) 30 mg DAILY GT 02/25/19 09:00 03/27/19 08:59 03/02/19 09:30 Piperacillin Sod/ Tazobactam Sod 3.375 gm/Sodium Chloride 110 ml @ 27.5 mls/hr Q8HR IVPB 02/25/19 14:00 03/04/19 13:59 03/03/19 06:00 Kike Lr MD Mar 03, 2019 08:28
[2019-03-03] MEDS: Ascorbic Acid 500mg tab GT SCH (08:54)
[2019-03-03] MEDS: Heparin 5000 units/ml inj SUBQ SCH ×2 (08:56→21:39)
--- NOTE | 2019-03-03 09:37 | Infectious Diseases Prog Note ---
Assessment/Plan Assessment/Plan A 1. retroperitoneal abscess s/p CT guided drainage with VRE 2. hypertension 3. atrial fibrillation 4. Ventilator dependent respiratory failure 5. Anemia P 1. continue Zosyn 2. will follow up cultures Subjective ROS Limited/Unobtainable: Yes Constitutional: Reports: other - no fev er today Allergies: Coded Allergies: No Known Allergies (Unverified , 02/25/19) Objective Vital Signs Last 24 Hour Vital Signs Date Time Temp Pulse Resp B/P (MAP) Pulse Ox O2 Delivery O2 Flow Rate FiO2 03/03/19 09:30 75 25 40 03/03/19 08:56 79 130/60 03/03/19 07:18 79 22 40 03/03/19 05:17 85 31 40 03/03/19 04:00 82 03/03/19 04:00 Mechanical Ventilator 03/03/19 04:00 40 03/03/19 04:00 99.1 71 28 130/60 (83) 100 03/03/19 03:29 82 29 40 03/03/19 01:06 72 22 40 03/03/19 00:00 73 03/03/19 00:00 98.2 78 25 149/71 (97) 100 03/03/19 00:00 Mechanical Ventilator 03/02/19 23:04 79 25 40 03/02/19 21:30 71 133/58 03/02/19 21:28 71 20 100 Mechanical Ventilator 40 03/02/19 21:20 71 20 40 03/02/19 20:00 Mechanical Ventilator 03/02/19 20:00 40 03/02/19 20:00 99.2 80 26 133/58 (83) 100 03/02/19 20:00 73 03/02/19 19:17 99.2 03/02/19 18:50 82 26 40 03/02/19 16:43 73 18 40 03/02/19 16:00 Mechanical Ventilator 03/02/19 16:00 40 03/02/19 16:00 99.5 84 28 149/75 (99) 100 03/02/19 16:00 70 03/02/19 14:44 83 30 40 03/02/19 13:18 81 21 40 03/02/19 12:00 40 03/02/19 12:00 Mechanical Ventilator 03/02/19 12:00 100.3 90 29 152/74 (100) 100 03/02/19 12:00 86 03/02/19 11:27 87 27 40 Height (Feet): 5 Height (Inches): 1.00 Weight (Pounds): 160 General Appearance: no acute distress HEENT: status post trach Respiratory/Chest: lungs clear, other - on ventilator Cardiovascular: normal rate Abdomen: soft, non tender, other - GT feeding Extremities: no edema Skin: ulcers Neurologic/Psychiatric: unresponsiveness Laboratory Tests Test 03/02/19 10:00 Vancomycin Level Trough 11.4 ug/mL (5.0-12.0) Current Medications Medications (Trade) Dose Ordered Sig/Oz Route PRN Reason Start Time Stop Time Status Last Admin Dose Admin Acetaminophen (Tylenol) 650 mg Q4H PRN GT Mild Pain/Temp > 100.5 02/25/19 07:00 03/27/19 06:59 03/02/19 18:47 Al Hydroxide/Mg Hydroxide (Mylanta) 30 ml Q4H PRN ORAL dyspepsia 02/25/19 07:45 03/27/19 07:44 Amiodarone HCl (Cordarone) 200 mg EVERY 8 HOURS GT 02/25/19 14:00 03/27/19 13:59 03/03/19 06:00 Amlodipine Besylate (Norvasc) 5 mg Q12HR GT 02/25/19 09:00 03/27/19 08:59 03/03/19 08:56 Ascorbic Acid (Vitamin C) 500 mg DAILY GT 02/25/19 09:00 03/27/19 08:59 03/03/19 08:54 Dextrose/Sodium Chloride 1,000 ml @ 30 mls/hr Q24H IV 02/27/19 07:15 03/29/19 07:14 03/03/19 07:01 Diatrizoate Meglum/ Diatrizoate Sod (Gastrografin) 30 ml NOW PRN ORAL Radiology Procedure 03/02/19 16:15 03/03/19 23:59 Heparin Sodium (Porcine) (Heparin 5000 units/ml) 5,000 units EVERY 12 HOURS SUBQ 02/25/19 21:00 03/27/19 20:59 03/03/19 08:56 Hydralazine HCl (Apresoline) 10 mg Q6H PRN GT For High Blood Pressure 02/25/19 08:15 03/27/19 08:14 Iopamidol (Isovue-300 100ml) 100 ml NOW PRN INJ Radiology Procedure 02/25/19 00:15 Iopamidol (Isovue-300 100ml) 100 ml NOW PRN INJ Radiology Procedure 03/02/19 16:15 03/04/19 16:14 Lansoprazole (Prevacid) 30 mg DAILY GT 02/25/19 09:00 03/27/19 08:59 03/03/19 08:54 Piperacillin Sod/ Tazobactam Sod 3.375 gm/Sodium Chloride 110 ml @ 27.5 mls/hr Q8HR IVPB 02/25/19 14:00 03/04/19 13:59 03/03/19 06:00 Parth Wells MD Mar 03, 2019 09:37
[2019-03-03 12:00] VITALS: BP 135/61
--- NOTE | 2019-03-03 12:13 | Surgery Progress Note ---
Surgery Progress Note Subjective Additional Comments no acute events pending CT scan which has not been performed yet drain with minimal output labs noted exan unchanged Objective Last 24 Hour Vital Signs Date Time Temp Pulse Resp B/P (MAP) Pulse Ox O2 Delivery O2 Flow Rate FiO2 03/03/19 11:22 69 17 40 03/03/19 09:30 75 25 40 03/03/19 08:56 79 130/60 03/03/19 08:00 Mechanical Ventilator 03/03/19 08:00 40 03/03/19 08:00 99.1 74 20 141/71 (94) 100 03/03/19 08:00 73 03/03/19 07:18 79 22 40 03/03/19 05:17 85 31 40 03/03/19 04:00 82 03/03/19 04:00 Mechanical Ventilator 03/03/19 04:00 40 03/03/19 04:00 99.1 71 28 130/60 (83) 100 03/03/19 03:29 82 29 40 03/03/19 01:06 72 22 40 03/03/19 00:00 73 03/03/19 00:00 98.2 78 25 149/71 (97) 100 03/03/19 00:00 Mechanical Ventilator 03/02/19 23:04 79 25 40 03/02/19 21:30 71 133/58 03/02/19 21:28 71 20 100 Mechanical Ventilator 40 03/02/19 21:20 71 20 40 03/02/19 20:00 Mechanical Ventilator 03/02/19 20:00 40 03/02/19 20:00 99.2 80 26 133/58 (83) 100 03/02/19 20:00 73 03/02/19 19:17 99.2 03/02/19 18:50 82 26 40 03/02/19 16:43 73 18 40 03/02/19 16:00 Mechanical Ventilator 03/02/19 16:00 40 03/02/19 16:00 99.5 84 28 149/75 (99) 100 03/02/19 16:00 70 03/02/19 14:44 83 30 40 03/02/19 13:18 81 21 40 I&O Intake and Output 03/02/19 03/03/19 19:00 07:00 Intake Total 1374.666 ml 942.500 ml Output Total 830 ml 1370 ml Balance 544.666 ml -427.500 ml Free Water 100 ml 100 ml IV Total 1104.666 ml 422.500 ml Tube Feeding 160 ml 410 ml Other 10 ml 10 ml Output Urine Total 650 ml 500 ml Stool Total 150 ml 850 ml Other 30 ml 20 ml Dressing: other Wound: other Drains: other Cardiovascular: RSR Respiratory: decreased breath sounds Abdomen: soft, present bowel sounds, other, non-distended Extremities: no cyanosis Plan Problems: (1) Abdominal distension Assessment & Plan: The colon is mostly distended with gas and fluid with areas of normal caliber, no definite obstructive lesion. There is diffuse marked distention of the small bowel with free communication of the distended distal small bowel lumen with the colon lumen. Findings are presumably functional in nature, as no obstructive lesion or transition point is demonstrated Evidence of prior proximal colectomy with ileocolic anastomosis Right lower quadrant retroperitoneal collection, with a pigtail drainage catheter at the cephalad aspect, consistent with a recently drained abscess. There may be a small amount of residual material within the collection Basilar or parenchymal atelectatic changes and possible consolidation Hepatic cyst. Hepatic subcentimeter low-attenuation lesions which are too small to characterize, most likely benign simple cysts. Other findings as noted, including gastrostomy, Abdi catheter, degenerative spondylosis (2) Abdominal abscess Assessment & Plan: drain with minimal output will repeat CT soon to eval if drain completely resolved abscess pending CT to be done Findings: Completion image demonstrates satisfactory position of the new drainage catheter note that the inferior aspect of the collection could not be accessed. However, it is not clear that this either represents fluid, is represents scar tissue. Impression: Successful replacement of right retroperitoneal collection drainage catheter, placed slightly deeper into the collection and previously. Only a scant amount of bloody fluid aspirated. The specimen was sent to the lab (3) Decubitus skin ulcer Assessment & Plan: Pt presented on admission with open DTPI sacrum. Multiple open wounds within base of wound with trace amt of slough at sacrococcygeal area ,surrounding dark and indurated borders.Non-blanching erythema periwound. (L) 7cm x (W)7.5cm x (D)0.2cm. Non-blanchable erythema without induration/fluctuance R and L heels. Skin Assessed under trach collar. Erythema noted to R side of neck but skin is otherwise intact. Tx.Plan: Cleanse Sacral wound with saline. Apply Therahoney. Apply Moisture Barrier Paste periwound. Cover with Optifoam drsg. Change every 3 days and prn. Apply Cavilon Skin Barrier to both heels.Cover with Optifoam drsg.Change every 7 days and prn. APM/CHELSEA Mattress overlay. Reposition at least every 2hours and prn. Off-load heels with pillow. Junior Stone Mar 03, 2019 12:13
[2019-03-03] MEDS: Vancomycin 750mg/NS 275ml IVPB SCH ×2 (14:31)
[2019-03-03 16:00] VITALS: BP 159/80
--- NOTE | 2019-03-03 16:29 | Diagnostic Imaging Report ---
Clinical Indication: Fever, leukocytosis, status post catheter drainage of right-sided pelvic abscess Technique: Patient given enteric contrast. IV administration nonionic contrast. Venous phase spiral acquisition obtained through the abdomen and pelvis. Multiplanar reconstructions were generated. Total dose length product 782.7 mGycm. CTDIvol(s) 16.82 mGy. Dose reduction achieved using automated exposure control Comparison: 02/25/2019 Findings: Again demonstrated is right pelvic retroperitoneal fluid collection. This is irregular in shape, measures approximately 5.4 cm transverse by 9 cm craniocaudad 1.2 cm thick. The upper portion appears completely collapsed around the catheter and therefore completely drained. The lower portion demonstrates a small amount of residual fluid. There is improved position of the drainage catheter compared to the prior study; catheter was exchanged in the interim. Again demonstrated is a gastrostomy, tenting the anterior wall of the stomach but the balloon still appearing intraluminal. There is a rectal tube in place. There is suggestion of some fecal incontinence despite the presence of the rectal tube. There is gaseous distention of portions of the colon and small bowel. However, the ingested contrast is seen to traverse the entirety of the small bowel and of the colon, so no obstructive pathology is evident. No small bowel wall thickening. No other fluid collections are evident. The distal esophagus and duodenum are unremarkable. When compared to the prior exam, the small bowel is much less distended. It is still somewhat distended with gas but as mentioned above rapid forward transit of contrast indicates absence of obstruction Again demonstrated is a cyst in segment 2 of the liver. The gallbladder, bile ducts, pancreas, spleen, adrenals, kidneys are unremarkable. No retroperitoneal or mesenteric mass or adenopathy. No pelvic mass or adenopathy. The uterus and adnexal structures appear unremarkable. There is slight edema of the bilateral flank and buttock subcutaneous fat. Consolidation and atelectasis and possibly scarring are again demonstrated at the lung bases. There is a 14 mm masslike opacity in the right middle lobe on the highest cut, not evident previously but probably excluded from the prior imaging volume. The heart is enlarged. The bones demonstrate degenerative spondylosis changes. There are large bilateral left greater than right S2 nerve root sleeve cysts again demonstrated Impression: Improved position of drainage catheter within right retroperitoneal pelvic fluid collection previously to represent an abscess. The upper portion appears completely drained. There is still a small amount residual fluid within the inferior portion of the collection 14 mm masslike opacity in the right middle lobe, seen only on prior study the current exam. Not seen previously but suspect not included on the prior imaging volume. Consider chest CT for better characterization if clinically indicated Decreased but persistent small bowel distention, as compared to the prior exam. Presumably functional in nature, as ingested contrast has traversed the entirety of the large and small bowel indicating absence of anatomic obstruction Bilateral basal pulmonary parenchymal atelectasis and consolidation and possibly scarring, also evident previously Cardiomegaly Other findings as noted, including bilateral S2 nerve root sleeve cysts, degenerative spondylosis changes, left lobe liver cyst, rectal tube, gastrostomy The CT scanner at [facility] is accredited by the [employer] and the scans are performed using protocols designed to limit radiation exposure to as low as reasonably achievable to attain images of sufficient resolution adequate for diagnostic evaluation.
[2019-03-03 20:00] VITALS: BP 143/71
[2019-03-04] VITALS: BP 158/74
[2019-03-04] MEDS: Vancomycin 750mg/NS 275ml IVPB SCH ×2 (02:37)
[2019-03-04 04:00] VITALS: BP 132/60
[2019-03-04] MEDS: Piperacillin/Tazobactam 3.375 GM in NS 110 ML IVPB SCH ×3 (05:30→21:32)
[2019-03-04] MEDS: Amiodarone 200mg tab GT SCH ×3 (05:31→21:31)
[2019-03-04] MEDS: D5 1/2NS 1,000 ML IV SCH (07:40)
[2019-03-04 08:00] VITALS: BP 140/64
[2019-03-04] MEDS: Ascorbic Acid 500mg tab GT SCH (09:02)
[2019-03-04] MEDS: Heparin 5000 units/ml inj SUBQ SCH ×2 (09:06→21:32)
--- NOTE | 2019-03-04 09:53 | Infectious Diseases Prog Note ---
Assessment/Plan Assessment/Plan A 1. retroperitoneal abscess s/p CT guided drainage with VRE 2. hypertension 3. atrial fibrillation 4. Ventilator dependent respiratory failure 5. Anemia 6. Positive blood culture with CoANS , likely contamination 7. s/p CVA P 1. continue Zosyn 2. will follow up culture 3. Discontinue Vancomycin 4. Case was D/W daughter at bedside Subjective ROS Limited/Unobtainable: Yes Gastrointestinal/Abdominal: Reports: diarrhea Allergies: Coded Allergies: No Known Allergies (Unverified , 02/25/19) Objective Vital Signs Last 24 Hour Vital Signs Date Time Temp Pulse Resp B/P (MAP) Pulse Ox O2 Delivery O2 Flow Rate FiO2 03/04/19 09:02 74 140/64 03/04/19 08:45 74 23 40 03/04/19 08:00 98.4 82 20 140/64 (89) 100 03/04/19 08:00 40 03/04/19 08:00 Mechanical Ventilator 03/04/19 07:44 83 03/04/19 07:15 80 27 40 03/04/19 05:30 80 25 40 03/04/19 04:00 74 03/04/19 04:00 Mechanical Ventilator 03/04/19 04:00 98.6 76 22 132/60 (84) 100 03/04/19 04:00 40 03/04/19 03:30 73 21 40 03/04/19 01:30 74 21 40 03/04/19 00:00 98.4 78 22 158/74 (102) 100 03/04/19 00:00 78 03/04/19 00:00 Mechanical Ventilator 03/03/19 23:30 81 24 40 03/03/19 21:38 83 143/71 03/03/19 21:30 83 26 40 03/03/19 20:00 79 03/03/19 20:00 Mechanical Ventilator 03/03/19 20:00 99.0 80 23 143/71 (95) 100 03/03/19 20:00 40 03/03/19 19:30 78 22 40 03/03/19 16:42 88 29 40 03/03/19 16:00 Mechanical Ventilator 03/03/19 16:00 99.5 85 22 159/80 (106) 100 03/03/19 16:00 79 03/03/19 16:00 40 03/03/19 15:00 74 18 40 03/03/19 13:12 77 21 40 03/03/19 12:00 99.4 77 22 135/61 (85) 100 03/03/19 12:00 40 03/03/19 12:00 Mechanical Ventilator 03/03/19 11:46 73 03/03/19 11:22 69 17 40 Height (Feet): 5 Height (Inches): 1.00 Weight (Pounds): 160 HEENT: status post trach Respiratory/Chest: lungs clear, other - on ventilator Cardiovascular: normal rate Abdomen: soft, non tender, other - GT, rectal tube Extremities: no edema Neurologic/Psychiatric: unresponsiveness Microbiology Date/Time Source Procedure Growth Status 03/02/19 11:55 Blood Blood Culture - Preliminary Staphylococcus Sp Coag Neg Resulted 03/02/19 11:45 Blood Blood Culture - Preliminary NO GROWTH AFTER 24 HOURS Resulted Current Medications Medications (Trade) Dose Ordered Sig/Oz Route PRN Reason Start Time Stop Time Status Last Admin Dose Admin Acetaminophen (Tylenol) 650 mg Q4H PRN GT Mild Pain/Temp > 100.5 02/25/19 07:00 03/27/19 06:59 03/02/19 18:47 Al Hydroxide/Mg Hydroxide (Mylanta) 30 ml Q4H PRN ORAL dyspepsia 02/25/19 07:45 03/27/19 07:44 Amiodarone HCl (Cordarone) 200 mg EVERY 8 HOURS GT 02/25/19 14:00 03/27/19 13:59 03/04/19 05:31 Amlodipine Besylate (Norvasc) 5 mg Q12HR GT 02/25/19 09:00 03/27/19 08:59 03/04/19 09:02 Ascorbic Acid (Vitamin C) 500 mg DAILY GT 02/25/19 09:00 03/27/19 08:59 03/04/19 09:02 Dextrose/Sodium Chloride 1,000 ml @ 30 mls/hr Q24H IV 02/27/19 07:15 03/29/19 07:14 03/04/19 07:40 Heparin Sodium (Porcine) (Heparin 5000 units/ml) 5,000 units EVERY 12 HOURS SUBQ 02/25/19 21:00 03/27/19 20:59 03/04/19 09:06 Hydralazine HCl (Apresoline) 10 mg Q6H PRN GT For High Blood Pressure 02/25/19 08:15 03/27/19 08:14 Iopamidol (Isovue-300 100ml) 100 ml NOW PRN INJ Radiology Procedure 02/25/19 00:15 Iopamidol (Isovue-300 100ml) 100 ml NOW PRN INJ Radiology Procedure 03/02/19 16:15 03/04/19 16:14 Lansoprazole (Prevacid) 30 mg DAILY GT 02/25/19 09:00 03/27/19 08:59 03/04/19 09:02 Piperacillin Sod/ Tazobactam Sod 3.375 gm/Sodium Chloride 110 ml @ 27.5 mls/hr Q8HR IVPB 02/25/19 14:00 03/08/19 13:59 03/04/19 05:30 Vancomycin HCl (Vanco rx to dose) 1 ea DAILY PRN MISC Per rx protocol 03/03/19 11:30 04/02/19 11:29 Vancomycin HCl 750 mg/Sodium Chloride 275 ml @ 183.333 mls/hr Q12HR@0200,1400 IVPB 03/03/19 14:00 03/08/19 13:59 03/04/19 02:37 Parth Wells MD Mar 04, 2019 09:53
[2019-03-04 12:00] VITALS: BP 133/64
--- NOTE | 2019-03-04 13:40 | Surgery Progress Note ---
Surgery Progress Note Subjective Additional Comments CT noted still with abnormal collections but improving on ABx pending labs Objective Last 24 Hour Vital Signs Date Time Temp Pulse Resp B/P (MAP) Pulse Ox O2 Delivery O2 Flow Rate FiO2 03/04/19 10:42 74 23 40 03/04/19 09:02 74 140/64 03/04/19 08:45 74 23 40 03/04/19 08:00 98.4 82 20 140/64 (89) 100 03/04/19 08:00 40 03/04/19 08:00 Mechanical Ventilator 03/04/19 07:44 83 03/04/19 07:15 80 27 40 03/04/19 05:30 80 25 40 03/04/19 04:00 74 03/04/19 04:00 Mechanical Ventilator 03/04/19 04:00 98.6 76 22 132/60 (84) 100 03/04/19 04:00 40 03/04/19 03:30 73 21 40 03/04/19 01:30 74 21 40 03/04/19 00:00 98.4 78 22 158/74 (102) 100 03/04/19 00:00 78 03/04/19 00:00 Mechanical Ventilator 03/03/19 23:30 81 24 40 03/03/19 21:38 83 143/71 03/03/19 21:30 83 26 40 03/03/19 20:00 79 03/03/19 20:00 Mechanical Ventilator 03/03/19 20:00 99.0 80 23 143/71 (95) 100 03/03/19 20:00 40 03/03/19 19:30 78 22 40 03/03/19 16:42 88 29 40 03/03/19 16:00 Mechanical Ventilator 03/03/19 16:00 99.5 85 22 159/80 (106) 100 03/03/19 16:00 79 03/03/19 16:00 40 03/03/19 15:00 74 18 40 I&O Intake and Output 03/03/19 03/04/19 19:00 07:00 Intake Total 1269.166 ml 1495.693 ml Output Total 820 ml 1430 ml Balance 449.166 ml 65.693 ml Free Water 50 ml 100 ml IV Total 1119.166 ml 890.693 ml Tube Feeding 90 ml 495 ml Other 10 ml 10 ml Output Urine Total 600 ml 450 ml Stool Total 200 ml 950 ml Other 20 ml 30 ml Dressing: dry Wound: other Drains: other Cardiovascular: RSR Abdomen: soft, non-tender, present bowel sounds Extremities: no tenderness, no cyanosis, other Plan Problems: (1) Abdominal distension Assessment & Plan: The colon is mostly distended with gas and fluid with areas of normal caliber, no definite obstructive lesion. There is diffuse marked distention of the small bowel with free communication of the distended distal small bowel lumen with the colon lumen. Findings are presumably functional in nature, as no obstructive lesion or transition point is demonstrated Evidence of prior proximal colectomy with ileocolic anastomosis Right lower quadrant retroperitoneal collection, with a pigtail drainage catheter at the cephalad aspect, consistent with a recently drained abscess. There may be a small amount of residual material within the collection Basilar or parenchymal atelectatic changes and possible consolidation Hepatic cyst. Hepatic subcentimeter low-attenuation lesions which are too small to characterize, most likely benign simple cysts. Other findings as noted, including gastrostomy, Abdi catheter, degenerative spondylosis (2) Abdominal abscess Assessment & Plan: will cont with IV abx therapy will discuss with IR about another catheter in remaining cavity repeat CT with / Impression: Improved position of drainage catheter within right retroperitoneal pelvic fluid collection previously to represent an abscess. The upper portion appears completely drained. There is still a small amount residual fluid within the inferior portion of the collection 14 mm masslike opacity in the right middle lobe, seen only on prior study the current exam. Not seen previously but suspect not included on the prior imaging volume. Consider chest CT for better characterization if clinically indicated Decreased but persistent small bowel distention, as compared to the prior exam. Presumably functional in nature, as ingested contrast has traversed the entirety of the large and small bowel indicating absence of anatomic obstruction Bilateral basal pulmonary parenchymal atelectasis and consolidation and possibly scarring, also evident previously Findings: Completion image demonstrates satisfactory position of the new drainage catheter note that the inferior aspect of the collection could not be accessed. However, it is not clear that this either represents fluid, is represents scar tissue. Impression: Successful replacement of right retroperitoneal collection drainage catheter, placed slightly deeper into the collection and previously. Only a scant amount of bloody fluid aspirated. The specimen was sent to the lab (3) Decubitus skin ulcer Assessment & Plan: Pt presented on admission with open DTPI sacrum. Multiple open wounds within base of wound with trace amt of slough at sacrococcygeal area ,surrounding dark and indurated borders.Non-blanching erythema periwound. (L) 7cm x (W)7.5cm x (D)0.2cm. Non-blanchable erythema without induration/fluctuance R and L heels. Skin Assessed under trach collar. Erythema noted to R side of neck but skin is otherwise intact. Tx.Plan: Cleanse Sacral wound with saline. Apply Therahoney. Apply Moisture Barrier Paste periwound. Cover with Optifoam drsg. Change every 3 days and prn. Apply Cavilon Skin Barrier to both heels.Cover with Optifoam drsg.Change every 7 days and prn. APM/CHELSEA Mattress overlay. Reposition at least every 2hours and prn. Off-load heels with pillow. Junior Stone Mar 04, 2019 13:40
[2019-03-04] MEDS: Acetaminophen 650mg/20.3ml GT PRN ×2 (14:23→21:47)
[2019-03-04 16:00] VITALS: BP 127/62
--- NOTE | 2019-03-04 16:18 | Pulmonology Progress Note ---
Assessment/Plan Assessment/Plan Pulmonary Progress Note HPI Patient is an 79-year old woman admitted from a alf facility. Had fevers and abdominal distention. Patient has a history of trach/vent with G- tube. Patient nonverbal at baseline. No signs of distress upon arrival. No reported shortness of breath nausea or vomiting. No other associated symptoms S/P IR guided repeat abdominal abscess drainage 02/25/2019 Stable on ventilator Allergies: No Known Allergies Past Medical History: Hypertension, atrial fibrillation, respiratory failure, G tube/trach, urogenital implant, decubitus ulcers Assessment/Plan Impression: Abdominal abscess, s/p drain UTI (urinary tract infection) Abdominal distension Pneumonia Hypertension Atrial fibrillation Respiratory failure Gtube/trach Urogenital implant Decubitus ulcers moderated PCM toxic metabolic encephalopathy possible sepsis Plan Antibiotics per ID monitor cultures ID evaluation called Wound team to follow monitor drainage surgical follow up monitor lytes Monitor labs for change maintain vent support as able prognosis poor impression, plan, and exam edited and reviewed in detail care discussed with RN Subjective ROS Limited/Unobtainable: Yes Allergies: Coded Allergies: No Known Allergies (Unverified , 02/25/19) Subjective care noted and reviewed on vent cultures noted family want end of life care likely 03/06 Objective Vital Signs Noted Objective WDWN NAD on vent and trach ALOC clear breath sounds bilaterally without rhonchi or wheeze [id number] without MRG NABS nontender no HSM; some distention; Gt no CC some edema nonfocal reduced LOC Laboratory Tests 02/28/19 09:05: Vancomycin Level Trough 6.4 03/01/19 03:20: Total Creatine Kinase 27, Troponin I 0.005 Current Medications Medications (Trade) Dose Ordered Sig/Oz Route PRN Reason Start Time Stop Time Status Last Admin Dose Admin Acetaminophen (Tylenol) 650 mg Q4H PRN GT Mild Pain/Temp > 100.5 02/25/19 07:00 03/27/19 06:59 03/01/19 01:55 Al Hydroxide/Mg Hydroxide (Mylanta) 30 ml Q4H PRN ORAL dyspepsia 02/25/19 07:45 03/27/19 07:44 Albuterol/ Ipratropium (Albuterol/ Ipratropium) 3 ml Q4H PRN HHN Shortness of Breath 02/25/19 07:45 03/02/19 07:44 02/28/19 01:12 Amiodarone HCl (Cordarone) 200 mg EVERY 8 HOURS GT 02/25/19 14:00 03/27/19 13:59 03/01/19 05:53 Amlodipine Besylate (Norvasc) 5 mg Q12HR GT 02/25/19 09:00 03/27/19 08:59 02/28/19 20:30 Ascorbic Acid (Vitamin C) 500 mg DAILY GT 02/25/19 09:00 03/27/19 08:59 02/28/19 08:57 Dextrose/Sodium Chloride 1,000 ml @ 30 mls/hr Q24H IV 02/27/19 07:15 03/29/19 07:14 03/01/19 06:22 Heparin Sodium (Porcine) (Heparin 5000 units/ml) 5,000 units EVERY 12 HOURS SUBQ 02/25/19 21:00 03/27/19 20:59 02/28/19 20:31 Hydralazine HCl (Apresoline) 10 mg Q6H PRN GT For High Blood Pressure 02/25/19 08:15 03/27/19 08:14 Iopamidol (Isovue-300 100ml) 100 ml NOW PRN INJ Radiology Procedure 02/25/19 00:15 Lansoprazole (Prevacid) 30 mg DAILY GT 02/25/19 09:00 03/27/19 08:59 02/28/19 08:57 Metronidazole (Flagyl) 500 mg Q8HR GT 02/27/19 07:15 03/06/19 07:14 03/01/19 05:53 Piperacillin Sod/ Tazobactam Sod 3.375 gm/Sodium Chloride 110 ml @ 27.5 mls/hr Q8HR IVPB 02/25/19 14:00 03/04/19 13:59 03/01/19 05:53 Vancomycin HCl (Vanco rx to dose) 1 ea DAILY PRN MISC Per rx protocol 02/25/19 07:00 03/27/19 06:59 Vancomycin HCl/ Dextrose 275 ml @ 137.5 mls/ hr Q24H IVPB 02/28/19 11:00 03/05/19 10:59 02/28/19 10:19 Subjective ROS Limited/Unobtainable: No Allergies: Coded Allergies: No Known Allergies (Unverified , 02/25/19) Objective Last 24 Hour Vital Signs Date Time Temp Pulse Resp B/P (MAP) Pulse Ox O2 Delivery O2 Flow Rate FiO2 03/04/19 15:29 76 03/04/19 15:18 78 24 40 03/04/19 13:57 79 27 40 03/04/19 12:00 Mechanical Ventilator 03/04/19 12:00 100.4 79 20 133/64 (87) 100 03/04/19 12:00 73 03/04/19 12:00 40 03/04/19 10:42 74 23 40 03/04/19 09:02 74 140/64 03/04/19 08:45 74 23 40 03/04/19 08:00 98.4 82 20 140/64 (89) 100 03/04/19 08:00 40 03/04/19 08:00 Mechanical Ventilator 03/04/19 07:44 83 03/04/19 07:15 80 27 40 03/04/19 05:30 80 25 40 03/04/19 04:00 74 03/04/19 04:00 Mechanical Ventilator 03/04/19 04:00 98.6 76 22 132/60 (84) 100 03/04/19 04:00 40 03/04/19 03:30 73 21 40 03/04/19 01:30 74 21 40 03/04/19 00:00 98.4 78 22 158/74 (102) 100 03/04/19 00:00 78 03/04/19 00:00 Mechanical Ventilator 03/03/19 23:30 81 24 40 03/03/19 21:38 83 143/71 03/03/19 21:30 83 26 40 03/03/19 20:00 79 03/03/19 20:00 Mechanical Ventilator 03/03/19 20:00 99.0 80 23 143/71 (95) 100 03/03/19 20:00 40 03/03/19 19:30 78 22 40 03/03/19 16:42 88 29 40 Intake and Output 03/03/19 03/04/19 19:00 07:00 Intake Total 1269.166 ml 1495.693 ml Output Total 820 ml 1430 ml Balance 449.166 ml 65.693 ml Free Water 50 ml 100 ml IV Total 1119.166 ml 890.693 ml Tube Feeding 90 ml 495 ml Other 10 ml 10 ml Output Urine Total 600 ml 450 ml Stool Total 200 ml 950 ml Other 20 ml 30 ml Microbiology Date/Time Source Procedure Growth Status 03/02/19 11:55 Blood Blood Culture - Preliminary Staphylococcus Sp Coag Neg Resulted 03/02/19 11:45 Blood Blood Culture - Preliminary NO GROWTH AFTER 24 HOURS Resulted Current Medications Medications (Trade) Dose Ordered Sig/Oz Route PRN Reason Start Time Stop Time Status Last Admin Dose Admin Acetaminophen (Tylenol) 650 mg Q4H PRN GT Mild Pain/Temp > 100.5 02/25/19 07:00 03/27/19 06:59 03/04/19 14:23 Al Hydroxide/Mg Hydroxide (Mylanta) 30 ml Q4H PRN ORAL dyspepsia 02/25/19 07:45 03/27/19 07:44 Amiodarone HCl (Cordarone) 200 mg EVERY 8 HOURS GT 02/25/19 14:00 03/27/19 13:59 03/04/19 14:14 Amlodipine Besylate (Norvasc) 5 mg Q12HR GT 02/25/19 09:00 03/27/19 08:59 03/04/19 09:02 Ascorbic Acid (Vitamin C) 500 mg DAILY GT 02/25/19 09:00 03/27/19 08:59 03/04/19 09:02 Dextrose/Sodium Chloride 1,000 ml @ 30 mls/hr Q24H IV 02/27/19 07:15 03/29/19 07:14 03/04/19 07:40 Heparin Sodium (Porcine) (Heparin 5000 units/ml) 5,000 units EVERY 12 HOURS SUBQ 02/25/19 21:00 03/27/19 20:59 03/04/19 09:06 Hydralazine HCl (Apresoline) 10 mg Q6H PRN GT For High Blood Pressure 02/25/19 08:15 03/27/19 08:14 Iopamidol (Isovue-300 100ml) 100 ml NOW PRN INJ Radiology Procedure 02/25/19 00:15 Lansoprazole (Prevacid) 30 mg DAILY GT 02/25/19 09:00 03/27/19 08:59 03/04/19 09:02 Piperacillin Sod/ Tazobactam Sod 3.375 gm/Sodium Chloride 110 ml @ 27.5 mls/hr Q8HR IVPB 02/25/19 14:00 03/08/19 13:59 03/04/19 14:14 Raúl Ledbetter MD Mar 04, 2019 16:18
[2019-03-04] MEDS ORDERED: NS 275ml ONE (18:38)
[2019-03-04] MEDS ORDERED: Tubing IV Secondary IV ONE (18:38)
[2019-03-04] MEDS ORDERED: D5 1/2NS 1000ml IV ONE (18:38)
[2019-03-04 20:00] VITALS: BP 129/59
[2019-03-05] VITALS: BP 132/76
[2019-03-05] MEDS: Acetaminophen 650mg/20.3ml GT PRN ×3 (03:20→21:47)
[2019-03-05 04:00] VITALS: BP 146/74
[2019-03-05] MEDS: Amiodarone 200mg tab GT SCH ×3 (05:46→21:46)
[2019-03-05] MEDS: Piperacillin/Tazobactam 3.375 GM in NS 110 ML IVPB SCH ×3 (05:47→21:47)
[2019-03-05 05:49] LABS: ALANINE AMINOTRANSFERASE 22 U/L (12-78); ALBUMIN 2.1 G/DL (3.4-5.0); ALBUMIN/GLOBULIN RATIO 0.3 (1.0-2.7); ALKALINE PHOSPHATASE 112 U/L (46-116); ANION GAP 12 mmol/L (5-15); ASPARTATE AMINO TRANSFERASE 30 U/L (15-37); BILIRUBIN,TOTAL 0.4 MG/DL (0.2-1.0); BLOOD UREA NITROGEN 20 mg/dL (7-18); CALCIUM 8.9 MG/DL (8.5-10.1); CARBON DIOXIDE 21 MMOL/L (21-32); CHLORIDE 112 MMOL/L (98-107); CREATININE 0.9 MG/DL (0.55-1.30); POTASSIUM 3.7 MMOL/L (3.5-5.1); SODIUM 145 MMOL/L (136-145)
[2019-03-05] MEDS: D5 1/2NS 1,000 ML IV SCH (06:45)
[2019-03-05 07:47] LABS: HEMATOCRIT 36.3 % (37.0-47.0); HEMOGLOBIN 11.4 G/DL (12.0-16.0); MEAN CORPUSCULAR VOLUME 90 FL (80-99); PLATELET COUNT 17 K/UL (150-450); RED BLOOD COUNT 4.06 M/UL (4.20-5.40); RED CELL DISTRIBUTION WIDTH 15.5 % (11.6-14.8); WHITE BLOOD COUNT 20.8 K/UL (4.8-10.8)
[2019-03-05 08:00] VITALS: BP 133/85
--- NOTE | 2019-03-05 08:05 | General Progress Note ---
Assessment/Plan Problem List: (1) UTI (urinary tract infection) ICD Codes: N39.0 - Urinary tract infection, site not specified SNOMED: 82612706 Qualifiers: Qualified Codes: N39.0 - Urinary tract infection, site not specified (2) Pneumonia ICD Codes: J18.9 - Pneumonia, unspecified organism SNOMED: 642226744 Qualifiers: Qualified Codes: J18.1 - Lobar pneumonia, unspecified organism (3) Abdominal distension ICD Codes: R14.0 - Abdominal distension (gaseous) SNOMED: 92607373 (4) Abdominal abscess SNOMED: 47285137 (5) Decubitus skin ulcer ICD Codes: L89.90 - Pressure ulcer of unspecified site, unspecified stage SNOMED: 378883427 Status: stable, progressing Assessment/Plan: cont current rx iv abx monitor wbc gt feeds vent support resp rx caradizem x 1 Subjective ROS Limited/Unobtainable: No Constitutional: Reports: weakness HEENT: Reports: no symptoms Cardiovascular: Reports: no symptoms Respiratory: Reports: shortness of breath Gastrointestinal/Abdominal: Reports: difficulty swallowing Genitourinary: Reports: no symptoms Neurologic/Psychiatric: Reports: pre-existing deficit Endocrine: Reports: no symptoms Hematologic/Lymphatic: Reports: anemia Allergies: Coded Allergies: No Known Allergies (Unverified , 02/25/19) All Systems: reviewed and negative except above Subjective in svt/afib with rvr. WBC trending up. congested Objective Last 24 Hour Vital Signs Date Time Temp Pulse Resp B/P (MAP) Pulse Ox O2 Delivery O2 Flow Rate FiO2 03/05/19 07:24 99 27 40 03/05/19 05:00 103 33 40 03/05/19 04:00 100.6 103 28 146/74 (98) 100 03/05/19 04:00 40 03/05/19 04:00 104 03/05/19 04:00 Mechanical Ventilator 03/05/19 03:50 99.8 03/05/19 02:57 100 38 40 03/05/19 00:54 99 32 40 03/05/19 00:00 97 03/05/19 00:00 Mechanical Ventilator 03/05/19 00:00 98.6 91 20 132/76 (94) 100 03/04/19 22:57 89 31 40 8/30/19 21:31 89 129/59 03/04/19 20:50 89 27 40 03/04/19 20:00 85 03/04/19 20:00 99.3 85 25 129/59 (82) 100 03/04/19 20:00 Mechanical Ventilator 03/04/19 20:00 40 03/04/19 18:43 84 24 40 03/04/19 17:07 77 25 40 03/04/19 16:00 98.4 78 18 127/62 (83) 100 03/04/19 16:00 Mechanical Ventilator 03/04/19 16:00 40 03/04/19 15:29 76 03/04/19 15:18 78 24 40 03/04/19 13:57 79 27 40 03/04/19 12:00 Mechanical Ventilator 03/04/19 12:00 100.4 79 20 133/64 (87) 100 03/04/19 12:00 73 03/04/19 12:00 40 03/04/19 10:42 74 23 40 03/04/19 09:02 74 140/64 03/04/19 08:45 74 23 40 Intake and Output 03/04/19 03/05/19 19:00 07:00 Intake Total 1100 ml 1155.0 ml Output Total 780 ml 1560 ml Balance 320 ml -405.0 ml Free Water 200 ml 220 ml IV Total 360 ml 440.0 ml Tube Feeding 540 ml 495 ml Output Urine Total 600 ml 850 ml Stool Total 150 ml 600 ml Emesis 100 ml Drainage Total 30 ml 10 ml Laboratory Tests 03/05/19 04:32: Sodium Level 145, Potassium Level 3.7, Chloride Level 112H, Carbon Dioxide Level 21, Anion Gap 12, Blood Urea Nitrogen 20H, Creatinine 0.9, Estimat Glomerular Filtration Rate , Glucose Level 134H, Calcium Level 8.9, Total Bilirubin 0.4, Aspartate Amino Transf (AST/SGOT) 30, Alanine Aminotransferase ( ALT/SGPT) 22, Alkaline Phosphatase 112, C-Reactive Protein, Quantitative 6.3H, Total Protein 8.4H, Albumin 2.1L, Globulin 6.3, Albumin/Globulin Ratio 0.3L 03/05/19 07:05: White Blood Count 20.8H, Red Blood Count 4.06L, Hemoglobin 11.4L, Hematocrit 36.3L, Mean Corpuscular Volume 90, Mean Corpuscular Hemoglobin 28.2, Mean Corpuscular Hemoglobin Concent 31.4L, Red Cell Distribution Width 15.5H, Platelet Count 17L, Mean Platelet Volume 13.6H, Neutrophils (%) (Auto) , Lymphocytes (%) (Auto) , Monocytes (%) (Auto) , Eosinophils (%) (Auto) , Basophils (%) (Auto) , Neutrophils % (Manual) [Pending], Lymphocytes % (Manual) [Pending], Platelet Estimate [Pending], Platelet Morphology [Pending], Erythrocyte Sedimentation Rate 86H Height (Feet): 5 Height (Inches): 1.00 Weight (Pounds): 160 Objective General Appearance: WD/WN, lethargic Neck: supple Cardiovascular: regular rhythm Respiratory/Chest: chest wall non-tender, lungs clear, normal breath sounds Abdomen: normal bowel sounds, non tender, soft, no organomegaly Edema: no edema noted Arm (L), no edema noted Arm (R), no edema noted Leg (L), no edema noted Leg (R), no edema noted Pedal (L), no edema noted Pedal (R), no edema noted Generalized Efrain Radford MD Mar 05, 2019 08:05
[2019-03-05] MEDS ORDERED: dilTIAZem HCl 25mg/5ml Inj IVP SCH (08:15)
[2019-03-05] MEDS ORDERED: dilTIAZem HCl 50mg/10ml Inj IVP ONE (08:15)
[2019-03-05] MEDS: Ascorbic Acid 500mg tab GT SCH (08:23)
[2019-03-05] MEDS ORDERED: D5 1/2NS 1000ml IV ONE (09:16)
[2019-03-05] MEDS ORDERED: dilTIAZem HCl 50mg/10ml Inj IVP SCH (11:05)
[2019-03-05] MEDS ORDERED: dilTIAZem HCl 25mg/5ml Inj IV SCH (11:15)
--- NOTE | 2019-03-05 11:43 | Pulmonology Progress Note ---
Assessment/Plan Assessment/Plan Impression: Abdominal abscess, s/p drain UTI (urinary tract infection) Abdominal distension Pneumonia Hypertension Atrial fibrillation with RVR Respiratory failure Gtube/trach Urogenital implant Decubitus ulcers moderated PCM toxic metabolic encephalopathy possible sepsis VRE leukocytosis Plan IV antibiotics cardizem monitor cultures- isolation ID evaluation noted Wound team to follow monitor drainage and optimize surgical follow up monitor lytes Monitor labs for change maintain vent support as able prognosis poor d/w family as to withdrawal of care- want everything removed and morphine prn Adriano nurse present and will proceed with comfort care impression, plan, and exam edited and reviewed in detail care discussed with RN Subjective ROS Limited/Unobtainable: Yes Allergies: Coded Allergies: No Known Allergies (Unverified , 02/25/19) Subjective care noted and reviewed on vent cultures noted 30 min d/w family RN present tachy and in afib MOF Objective Last 24 Hour Vital Signs Date Time Temp Pulse Resp B/P (MAP) Pulse Ox O2 Delivery O2 Flow Rate FiO2 03/05/19 11:15 132 129/68 03/05/19 10:53 78 25 40 03/05/19 09:14 104 24 40 03/05/19 08:52 102.0 03/05/19 08:23 157 133/85 03/05/19 08:23 157 133/85 03/05/19 08:00 144 03/05/19 08:00 Mechanical Ventilator 03/05/19 08:00 40 03/05/19 08:00 100.8 157 28 133/85 (101) 100 03/05/19 07:24 99 27 40 03/05/19 07:24 124 03/05/19 05:00 103 33 40 03/05/19 04:00 100.6 103 28 146/74 (98) 100 03/05/19 04:00 40 03/05/19 04:00 104 03/05/19 04:00 Mechanical Ventilator 03/05/19 02:57 100 38 40 03/05/19 00:54 99 32 40 03/05/19 00:00 97 03/05/19 00:00 Mechanical Ventilator 03/05/19 00:00 98.6 91 20 132/76 (94) 100 03/04/19 22:57 89 31 40 03/04/19 21:31 89 129/59 03/04/19 20:50 89 27 40 03/04/19 20:00 85 03/04/19 20:00 99.3 85 25 129/59 (82) 100 03/04/19 20:00 Mechanical Ventilator 03/04/19 20:00 40 03/04/19 18:43 84 24 40 03/04/19 17:07 77 25 40 03/04/19 16:00 98.4 78 18 127/62 (83) 100 03/04/19 16:00 Mechanical Ventilator 03/04/19 16:00 40 03/04/19 15:29 76 03/04/19 15:18 78 24 40 03/04/19 13:57 79 27 40 03/04/19 12:00 Mechanical Ventilator 03/04/19 12:00 100.4 79 20 133/64 (87) 100 03/04/19 12:00 73 03/04/19 12:00 40 Intake and Output 03/04/19 03/05/19 18:59 06:59 Intake Total 1100 ml 1230.0 ml Output Total 780 ml 1560 ml Balance 320 ml -330.0 ml Free Water 200 ml 220 ml IV Total 360 ml 470.0 ml Tube Feeding 540 ml 540 ml Output Urine Total 600 ml 850 ml Stool Total 150 ml 600 ml Emesis 100 ml Drainage Total 30 ml 10 ml Objective WDWN NAD on vent and trach ALOC clear breath sounds bilaterally without rhonchi or wheeze S1S2 iRR tachy without MRG NABS nontender no HSM; some distention; Gt no CC some edema nonfocal reduced LOC bedbound Microbiology Date/Time Source Procedure Growth Status 03/02/19 11:55 Blood Blood Culture - Final Staphylococcus Sp Coag Neg Complete 03/02/19 11:45 Blood Blood Culture - Preliminary NO GROWTH AFTER 48 HOURS Resulted Laboratory Tests 03/05/19 04:32: Sodium Level 145, Potassium Level 3.7, Chloride Level 112H, Carbon Dioxide Level 21, Anion Gap 12, Blood Urea Nitrogen 20H, Creatinine 0.9, Estimat Glomerular Filtration Rate , Glucose Level 134H, Calcium Level 8.9, Total Bilirubin 0.4, Aspartate Amino Transf (AST/SGOT) 30, Alanine Aminotransferase ( ALT/SGPT) 22, Alkaline Phosphatase 112, C-Reactive Protein, Quantitative 6.3H, Total Protein 8.4H, Albumin 2.1L, Globulin 6.3, Albumin/Globulin Ratio 0.3L 03/05/19 07:05: White Blood Count 20.8H, Red Blood Count 4.06L, Hemoglobin 11.4L, Hematocrit 36.3L, Mean Corpuscular Volume 90, Mean Corpuscular Hemoglobin 28.2, Mean Corpuscular Hemoglobin Concent 31.4L, Red Cell Distribution Width 15.5H, Platelet Count 17L, Mean Platelet Volume 13.6H, Neutrophils (%) (Auto) , Lymphocytes (%) (Auto) , Monocytes (%) (Auto) , Eosinophils (%) (Auto) , Basophils (%) (Auto) , Differential Total Cells Counted 100, Neutrophils % ( Manual) 87H, Lymphocytes % (Manual) 10L, Monocytes % (Manual) 3, Eosinophils % ( Manual) 0, Basophils % (Manual) 0, Band Neutrophils 0, Platelet Estimate DecreasedL, Platelet Morphology Normal, Polychromasia 1+, Hypochromasia 1+, Anisocytosis 1+, Erythrocyte Sedimentation Rate 86H Current Medications Medications (Trade) Dose Ordered Sig/Oz Route PRN Reason Start Time Stop Time Status Last Admin Dose Admin Acetaminophen (Tylenol) 650 mg Q4H PRN GT Mild Pain/Temp > 100.5 02/25/19 07:00 03/27/19 06:59 03/05/19 08:22 Al Hydroxide/Mg Hydroxide (Mylanta) 30 ml Q4H PRN ORAL dyspepsia 02/25/19 07:45 03/27/19 07:44 Amiodarone HCl (Cordarone) 200 mg EVERY 8 HOURS GT 02/25/19 14:00 03/27/19 13:59 03/05/19 05:46 Amlodipine Besylate (Norvasc) 5 mg Q12HR GT 02/25/19 09:00 03/27/19 08:59 03/05/19 08:23 Ascorbic Acid (Vitamin C) 500 mg DAILY GT 02/25/19 09:00 03/27/19 08:59 03/05/19 08:23 Dextrose/Sodium Chloride 1,000 ml @ 30 mls/hr Q24H IV 02/27/19 07:15 03/29/19 07:14 03/05/19 06:45 Diltiazem HCl (Cardizem) 10 mg ONCE IV 03/05/19 11:15 03/05/19 12:05 03/05/19 11:15 Diltiazem HCl (Cardizem) 30 mg EVERY 8 HOURS ORAL 03/05/19 14:00 04/04/19 13:59 Hydralazine HCl (Apresoline) 10 mg Q6H PRN GT For High Blood Pressure 02/25/19 08:15 03/27/19 08:14 Iopamidol (Isovue-300 100ml) 100 ml NOW PRN INJ Radiology Procedure 02/25/19 00:15 Lansoprazole (Prevacid) 30 mg DAILY GT 02/25/19 09:00 03/27/19 08:59 03/05/19 08:22 Piperacillin Sod/ Tazobactam Sod 3.375 gm/Sodium Chloride 110 ml @ 27.5 mls/hr Q8HR IVPB 02/25/19 14:00 03/08/19 13:59 03/05/19 05:47 Kike Lr MD Mar 05, 2019 11:43
[2019-03-05 12:00] VITALS: BP 128/81
[2019-03-05] MEDS: dilTIAZem HCl 30mg tab ORAL SCH ×2 (13:18→21:46)
[2019-03-05 15:48] VITALS: BP 134/82
--- NOTE | 2019-03-05 18:09 | Surgery Progress Note ---
Surgery Progress Note Subjective Additional Comments DNR plan for comfort care Objective Last 24 Hour Vital Signs Date Time Temp Pulse Resp B/P (MAP) Pulse Ox O2 Delivery O2 Flow Rate FiO2 03/05/19 16:52 81 25 40 03/05/19 16:40 82 03/05/19 16:00 125 03/05/19 15:50 40 03/05/19 15:49 Mechanical Ventilator 03/05/19 15:48 99.7 128 28 134/82 (99) 100 03/05/19 15:24 80 25 40 03/05/19 13:18 124 128/81 03/05/19 12:57 124 25 40 03/05/19 12:00 129 03/05/19 12:00 98.8 129 28 128/81 (97) 100 03/05/19 12:00 40 03/05/19 12:00 Mechanical Ventilator 03/05/19 11:15 132 129/68 03/05/19 10:53 78 25 40 03/05/19 09:14 104 24 40 03/05/19 08:52 102.0 03/05/19 08:23 157 133/85 03/05/19 08:23 157 133/85 03/05/19 08:00 144 03/05/19 08:00 Mechanical Ventilator 03/05/19 08:00 40 03/05/19 08:00 100.8 157 28 133/85 (101) 100 03/05/19 07:24 99 27 40 03/05/19 07:24 124 03/05/19 05:00 103 33 40 03/05/19 04:00 100.6 103 28 146/74 (98) 100 03/05/19 04:00 40 03/05/19 04:00 104 03/05/19 04:00 Mechanical Ventilator 03/05/19 02:57 100 38 40 03/05/19 00:54 99 32 40 03/05/19 00:00 97 03/05/19 00:00 Mechanical Ventilator 03/05/19 00:00 98.6 91 20 132/76 (94) 100 03/04/19 22:57 89 31 40 03/04/19 21:31 89 129/59 03/04/19 20:50 89 27 40 03/04/19 20:00 85 03/04/19 20:00 99.3 85 25 129/59 (82) 100 03/04/19 20:00 Mechanical Ventilator 03/04/19 20:00 40 03/04/19 18:43 84 24 40 I&O Intake and Output 03/04/19 03/05/19 19:00 07:00 Intake Total 1100 ml 1185.0 ml Output Total 780 ml 1560 ml Balance 320 ml -375.0 ml Free Water 200 ml 220 ml IV Total 360 ml 470.0 ml Tube Feeding 540 ml 495 ml Output Urine Total 600 ml 850 ml Stool Total 150 ml 600 ml Emesis 100 ml Drainage Total 30 ml 10 ml Dressing: other Wound: other Drains: other Cardiovascular: RSR Respiratory: decreased breath sounds Abdomen: soft, present bowel sounds, non-distended Extremities: no cyanosis Laboratory Tests Test 03/05/19 04:32 03/05/19 07:05 Sodium Level 145 MMOL/L (136-145) Potassium Level 3.7 MMOL/L (3.5-5.1) Chloride Level 112 MMOL/L (98-107) H Carbon Dioxide Level 21 MMOL/L (21-32) Anion Gap 12 mmol/L (5-15) Blood Urea Nitrogen 20 mg/dL (7-18) H Creatinine 0.9 MG/DL (0.55-1.30) Estimat Glomerular Filtration Rate mL/min (>60) Glucose Level 134 MG/DL (74-106) H Calcium Level 8.9 MG/DL (8.5-10.1) Total Bilirubin 0.4 MG/DL (0.2-1.0) Aspartate Amino Transf (AST/SGOT) 30 U/L (15-37) Alanine Aminotransferase (ALT/SGPT) 22 U/L (12-78) Alkaline Phosphatase 112 U/L (46-116) C-Reactive Protein, Quantitative 6.3 mg/dL (0.00-0.90) H Total Protein 8.4 G/DL (6.4-8.2) H Albumin 2.1 G/DL (3.4-5.0) L Globulin 6.3 g/dL Albumin/Globulin Ratio 0.3 (1.0-2.7) L White Blood Count 20.8 K/UL (4.8-10.8) H Red Blood Count 4.06 M/UL (4.20-5.40) L Hemoglobin 11.4 G/DL (12.0-16.0) L Hematocrit 36.3 % (37.0-47.0) L Mean Corpuscular Volume 90 FL (80-99) Mean Corpuscular Hemoglobin 28.2 PG (27.0-31.0) Mean Corpuscular Hemoglobin Concent 31.4 G/DL (32.0-36.0) L Red Cell Distribution Width 15.5 % (11.6-14.8) H Platelet Count 17 K/UL (150-450) L Mean Platelet Volume 13.6 FL (6.5-10.1) H Neutrophils (%) (Auto) % (45.0-75.0) Lymphocytes (%) (Auto) % (20.0-45.0) Monocytes (%) (Auto) % (1.0-10.0) Eosinophils (%) (Auto) % (0.0-3.0) Basophils (%) (Auto) % (0.0-2.0) Differential Total Cells Counted 100 Neutrophils % (Manual) 87 % (45-75) H Lymphocytes % (Manual) 10 % (20-45) L Monocytes % (Manual) 3 % (1-10) Eosinophils % (Manual) 0 % (0-3) Basophils % (Manual) 0 % (0-2) Band Neutrophils 0 % (0-8) Platelet Estimate Decreased L Platelet Morphology Normal Polychromasia 1+ Hypochromasia 1+ Anisocytosis 1+ Erythrocyte Sedimentation Rate 86 MM/HR (0-30) H Heparin-PF4 Antibody Screen Pending Plan Problems: (1) Abdominal distension Assessment & Plan: The colon is mostly distended with gas and fluid with areas of normal caliber, no definite obstructive lesion. There is diffuse marked distention of the small bowel with free communication of the distended distal small bowel lumen with the colon lumen. Findings are presumably functional in nature, as no obstructive lesion or transition point is demonstrated Evidence of prior proximal colectomy with ileocolic anastomosis Right lower quadrant retroperitoneal collection, with a pigtail drainage catheter at the cephalad aspect, consistent with a recently drained abscess. There may be a small amount of residual material within the collection Basilar or parenchymal atelectatic changes and possible consolidation Hepatic cyst. Hepatic subcentimeter low-attenuation lesions which are too small to characterize, most likely benign simple cysts. Other findings as noted, including gastrostomy, Abdi catheter, degenerative spondylosis (2) Abdominal abscess Assessment & Plan: will cont with IV abx therapy will discuss with IR about another catheter in remaining cavity repeat CT with / Impression: Improved position of drainage catheter within right retroperitoneal pelvic fluid collection previously to represent an abscess. The upper portion appears completely drained. There is still a small amount residual fluid within the inferior portion of the collection 14 mm masslike opacity in the right middle lobe, seen only on prior study the current exam. Not seen previously but suspect not included on the prior imaging volume. Consider chest CT for better characterization if clinically indicated Decreased but persistent small bowel distention, as compared to the prior exam. Presumably functional in nature, as ingested contrast has traversed the entirety of the large and small bowel indicating absence of anatomic obstruction Bilateral basal pulmonary parenchymal atelectasis and consolidation and possibly scarring, also evident previously Findings: Completion image demonstrates satisfactory position of the new drainage catheter note that the inferior aspect of the collection could not be accessed. However, it is not clear that this either represents fluid, is represents scar tissue. Impression: Successful replacement of right retroperitoneal collection drainage catheter, placed slightly deeper into the collection and previously. Only a scant amount of bloody fluid aspirated. The specimen was sent to the lab (3) Decubitus skin ulcer Assessment & Plan: Pt presented on admission with open DTPI sacrum. Multiple open wounds within base of wound with trace amt of slough at sacrococcygeal area ,surrounding dark and indurated borders.Non-blanching erythema periwound. (L) 7cm x (W)7.5cm x (D)0.2cm. Non-blanchable erythema without induration/fluctuance R and L heels. Skin Assessed under trach collar. Erythema noted to R side of neck but skin is otherwise intact. Tx.Plan: Cleanse Sacral wound with saline. Apply Therahoney. Apply Moisture Barrier Paste periwound. Cover with Optifoam drsg. Change every 3 days and prn. Apply Cavilon Skin Barrier to both heels.Cover with Optifoam drsg.Change every 7 days and prn. APM/CHELSEA Mattress overlay. Reposition at least every 2hours and prn. Off-load heels with pillow. Additional Comments plan for comfort care Junior Stone Mar 05, 2019 18:08
[2019-03-05 20:00] VITALS: BP 147/68
[2019-03-05] MEDS: Morphine Sulfate 2mg/ml Inj(IV/IM USE ONLY) IVP PRN (21:48)
[2019-03-06] VITALS: BP 123/64
[2019-03-06 04:00] VITALS: BP 137/67
[2019-03-06] MEDS: dilTIAZem HCl 30mg tab ORAL SCH ×3 (05:24→21:01)
[2019-03-06] MEDS: Piperacillin/Tazobactam 3.375 GM in NS 110 ML IVPB SCH ×3 (05:24→21:01)
[2019-03-06] MEDS: Amiodarone 200mg tab GT SCH ×3 (05:24→21:00)
[2019-03-06] MEDS: D5 1/2NS 1,000 ML IV SCH (07:44)
[2019-03-06 08:00] VITALS: BP 134/55
[2019-03-06] MEDS: Ascorbic Acid 500mg tab GT SCH (08:51)
--- NOTE | 2019-03-06 08:55 | Diagnostic Imaging Report ---
EXAM: XR Chest, 1 View CLINICAL HISTORY: ABN LABS TECHNIQUE: Frontal view of the chest. COMPARISON: Chest x-ray dated 02/25/19 FINDINGS: Lungs: Patchy opacities in the left lung base, similar to slightly increased. No significant change in the diffuse increased reticular interstitial markings in bilateral lungs. Pleural space: Unremarkable. The costophrenic angles are sharp. No visible pneumothorax. Heart: Unremarkable. No cardiomegaly. Mediastinum: Unremarkable. Bones/joints: Unremarkable. Tubes, lines and devices: Tracheostomy, with expected positioning. Telemetry leads overlie the thorax. IMPRESSION: 1. Patchy opacities in the left lung base, which may represent atelectasis versus pneumonia. These appear similar to slightly increased compared to the prior exam 2. No significant change in the diffusely increased reticular interstitial markings in bilateral lungs. This may represent chronic senescent/post inflammatory changes versus an underlying interstitial pneumonitis or fibrosis.
--- NOTE | 2019-03-06 09:03 | Pulmonology Progress Note ---
Assessment/Plan Assessment/Plan Impression: Abdominal abscess, s/p drain UTI (urinary tract infection) Abdominal distension Pneumonia Hypertension Atrial fibrillation with RVR Respiratory failure Gtube/trach Urogenital implant Decubitus ulcers moderated PCM toxic metabolic encephalopathy possible sepsis VRE leukocytosis PLAN maintain vent and care pending final family member support as able prognosis poor d/w family as to withdrawal of care- await family to arrive Adriano nurse present and will proceed with comfort care impression, plan, and exam edited and reviewed in detail care discussed with RN Subjective ROS Limited/Unobtainable: Yes Allergies: Coded Allergies: No Known Allergies (Unverified , 02/25/19) Subjective care noted and reviewed on vent cultures noted family wanted to delay withdrawal of care as final family member to arrive today Objective Last 24 Hour Vital Signs Date Time Temp Pulse Resp B/P (MAP) Pulse Ox O2 Delivery O2 Flow Rate FiO2 03/06/19 08:55 77 03/06/19 08:51 76 134/55 03/06/19 08:00 Mechanical Ventilator 03/06/19 08:00 97.9 76 18 134/55 (81) 100 03/06/19 08:00 40 03/06/19 07:25 82 24 40 03/06/19 05:24 83 137/65 03/06/19 04:55 83 26 40 03/06/19 04:00 Mechanical Ventilator 03/06/19 04:00 98.2 81 16 137/67 (90) 100 03/06/19 04:00 40 03/06/19 03:59 84 03/06/19 03:30 85 26 40 03/06/19 01:11 75 25 40 03/06/19 00:00 Mechanical Ventilator 03/06/19 00:00 98.6 68 18 123/64 (83) 100 03/05/19 23:48 68 03/05/19 23:17 68 20 40 03/05/19 22:17 99.8 03/05/19 21:46 81 147/61 03/05/19 21:46 81 147/61 03/05/19 21:10 82 15 40 03/05/19 20:00 100.0 81 22 147/68 (94) 100 03/05/19 20:00 Mechanical Ventilator 03/05/19 20:00 40 03/05/19 19:20 79 03/05/19 18:55 80 27 40 03/05/19 16:52 81 25 40 03/05/19 16:40 82 03/05/19 16:00 125 03/05/19 15:50 40 03/05/19 15:49 Mechanical Ventilator 03/05/19 15:48 99.7 128 28 134/82 (99) 100 03/05/19 15:24 80 25 40 03/05/19 13:18 124 128/81 03/05/19 12:57 124 25 40 03/05/19 12:00 129 03/05/19 12:00 98.8 129 28 128/81 (97) 100 03/05/19 12:00 40 03/05/19 12:00 Mechanical Ventilator 03/05/19 11:15 132 129/68 03/05/19 10:53 78 25 40 03/05/19 09:14 104 24 40 Intake and Output 03/05/19 03/06/19 19:00 07:00 Intake Total 990 ml 1159.0 ml Output Total 710 ml 1000 ml Balance 280 ml 159.0 ml Free Water 150 ml 150 ml IV Total 300 ml 514.0 ml Tube Feeding 540 ml 495 ml Output Urine Total 700 ml 550 ml Stool Total 450 ml Other 10 ml # Bowel Movements 100 Objective WDWN NAD on vent and trach ALOC clear breath sounds bilaterally without rhonchi or wheeze S1S2 iRR tachy without MRG NABS nontender no HSM; some distention; Gt no CC some edema nonfocal reduced LOC bedbound Current Medications Medications (Trade) Dose Ordered Sig/Oz Route PRN Reason Start Time Stop Time Status Last Admin Dose Admin Acetaminophen (Tylenol) 650 mg Q4H PRN GT Mild Pain/Temp > 100.5 02/25/19 07:00 03/27/19 06:59 03/05/19 21:47 Al Hydroxide/Mg Hydroxide (Mylanta) 30 ml Q4H PRN ORAL dyspepsia 02/25/19 07:45 03/27/19 07:44 Amiodarone HCl (Cordarone) 200 mg EVERY 8 HOURS GT 02/25/19 14:00 03/27/19 13:59 03/06/19 05:24 Amlodipine Besylate (Norvasc) 5 mg Q12HR GT 02/25/19 09:00 03/27/19 08:59 03/06/19 08:51 Ascorbic Acid (Vitamin C) 500 mg DAILY GT 02/25/19 09:00 03/27/19 08:59 03/06/19 08:51 Dextrose/Sodium Chloride 1,000 ml @ 30 mls/hr Q24H IV 02/27/19 07:15 03/29/19 07:14 03/06/19 07:44 Diltiazem HCl (Cardizem) 30 mg EVERY 8 HOURS ORAL 03/05/19 14:00 04/04/19 13:59 03/06/19 05:24 Hydralazine HCl (Apresoline) 10 mg Q6H PRN GT For High Blood Pressure 02/25/19 08:15 03/27/19 08:14 Iopamidol (Isovue-300 100ml) 100 ml NOW PRN INJ Radiology Procedure 02/25/19 00:15 Lansoprazole (Prevacid) 30 mg DAILY GT 02/25/19 09:00 03/27/19 08:59 03/06/19 08:51 Morphine Sulfate (Morphine Sulfate) 2 mg Q1H PRN IVP For Pain 03/05/19 13:00 03/12/19 12:59 03/05/19 21:48 Piperacillin Sod/ Tazobactam Sod 3.375 gm/Sodium Chloride 110 ml @ 27.5 mls/hr Q8HR IVPB 02/25/19 14:00 03/08/19 13:59 03/06/19 05:24 Kike Lr MD Mar 06, 2019 09:03
[2019-03-06] MEDS ORDERED: D5 1/2NS 1000ml IV ONE (10:21)
[2019-03-06] MEDS ORDERED: NS 275ml ONE (10:21)
--- NOTE | 2019-03-06 11:44 | Surgery Progress Note ---
Surgery Progress Note Subjective Additional Comments Family at bedside saying prayers with patient. No acute events. Patient seemingly comfortable Objective Last 24 Hour Vital Signs Date Time Temp Pulse Resp B/P (MAP) Pulse Ox O2 Delivery O2 Flow Rate FiO2 03/06/19 10:54 77 22 40 03/06/19 09:08 80 26 40 03/06/19 08:55 77 03/06/19 08:51 76 134/55 03/06/19 08:00 Mechanical Ventilator 03/06/19 08:00 97.9 76 18 134/55 (81) 100 03/06/19 08:00 40 03/06/19 07:25 82 24 40 03/06/19 05:24 83 137/65 03/06/19 04:55 83 26 40 03/06/19 04:00 Mechanical Ventilator 03/06/19 04:00 98.2 81 16 137/67 (90) 100 03/06/19 04:00 40 03/06/19 03:59 84 03/06/19 03:30 85 26 40 03/06/19 01:11 75 25 40 03/06/19 00:00 Mechanical Ventilator 03/06/19 00:00 98.6 68 18 123/64 (83) 100 03/05/19 23:48 68 03/05/19 23:17 68 20 40 03/05/19 22:17 99.8 03/05/19 21:46 81 147/61 03/05/19 21:46 81 147/61 03/05/19 21:10 82 15 40 03/05/19 20:00 100.0 81 22 147/68 (94) 100 03/05/19 20:00 Mechanical Ventilator 03/05/19 20:00 40 03/05/19 19:20 79 03/05/19 18:55 80 27 40 03/05/19 16:52 81 25 40 03/05/19 16:40 82 03/05/19 16:00 125 03/05/19 15:50 40 03/05/19 15:49 Mechanical Ventilator 03/05/19 15:48 99.7 128 28 134/82 (99) 100 03/05/19 15:24 80 25 40 03/05/19 13:18 124 128/81 03/05/19 12:57 124 25 40 03/05/19 12:00 129 03/05/19 12:00 98.8 129 28 128/81 (97) 100 03/05/19 12:00 40 03/05/19 12:00 Mechanical Ventilator I&O Intake and Output 03/05/19 03/06/19 19:00 07:00 Intake Total 990 ml 1204.0 ml Output Total 710 ml 1000 ml Balance 280 ml 204.0 ml Free Water 150 ml 150 ml IV Total 300 ml 514.0 ml Tube Feeding 540 ml 540 ml Output Urine Total 700 ml 550 ml Stool Total 450 ml Other 10 ml # Bowel Movements 100 Dressing: other Wound: other Drains: other Cardiovascular: other Respiratory: other Abdomen: other Extremities: other Plan Problems: (1) Abdominal distension Assessment & Plan: The colon is mostly distended with gas and fluid with areas of normal caliber, no definite obstructive lesion. There is diffuse marked distention of the small bowel with free communication of the distended distal small bowel lumen with the colon lumen. Findings are presumably functional in nature, as no obstructive lesion or transition point is demonstrated Evidence of prior proximal colectomy with ileocolic anastomosis Right lower quadrant retroperitoneal collection, with a pigtail drainage catheter at the cephalad aspect, consistent with a recently drained abscess. There may be a small amount of residual material within the collection Basilar or parenchymal atelectatic changes and possible consolidation Hepatic cyst. Hepatic subcentimeter low-attenuation lesions which are too small to characterize, most likely benign simple cysts. Other findings as noted, including gastrostomy, Abdi catheter, degenerative spondylosis (2) Abdominal abscess Assessment & Plan: will cont with IV abx therapy will discuss with IR about another catheter in remaining cavity repeat CT with / Impression: Improved position of drainage catheter within right retroperitoneal pelvic fluid collection previously to represent an abscess. The upper portion appears completely drained. There is still a small amount residual fluid within the inferior portion of the collection 14 mm masslike opacity in the right middle lobe, seen only on prior study the current exam. Not seen previously but suspect not included on the prior imaging volume. Consider chest CT for better characterization if clinically indicated Decreased but persistent small bowel distention, as compared to the prior exam. Presumably functional in nature, as ingested contrast has traversed the entirety of the large and small bowel indicating absence of anatomic obstruction Bilateral basal pulmonary parenchymal atelectasis and consolidation and possibly scarring, also evident previously Findings: Completion image demonstrates satisfactory position of the new drainage catheter note that the inferior aspect of the collection could not be accessed. However, it is not clear that this either represents fluid, is represents scar tissue. Impression: Successful replacement of right retroperitoneal collection drainage catheter, placed slightly deeper into the collection and previously. Only a scant amount of bloody fluid aspirated. The specimen was sent to the lab (3) Decubitus skin ulcer Assessment & Plan: Pt presented on admission with open DTPI sacrum. Multiple open wounds within base of wound with trace amt of slough at sacrococcygeal area ,surrounding dark and indurated borders.Non-blanching erythema periwound. (L) 7cm x (W)7.5cm x (D)0.2cm. Non-blanchable erythema without induration/fluctuance R and L heels. Skin Assessed under trach collar. Erythema noted to R side of neck but skin is otherwise intact. Tx.Plan: Cleanse Sacral wound with saline. Apply Therahoney. Apply Moisture Barrier Paste periwound. Cover with Optifoam drsg. Change every 3 days and prn. Apply Cavilon Skin Barrier to both heels.Cover with Optifoam drsg.Change every 7 days and prn. APM/CHELSEA Mattress overlay. Reposition at least every 2hours and prn. Off-load heels with pillow. Additional Comments DNR/DNI comfort care Junior Stone Mar 06, 2019 11:44
[2019-03-06 12:00] VITALS: BP 131/63
--- NOTE | 2019-03-06 12:35 | Infectious Diseases Prog Note ---
Assessment/Plan Assessment/Plan A 1. retroperitoneal abscess s/p CT guided drainage with VRE 2. hypertension 3. atrial fibrillation 4. Ventilator dependent respiratory failure 5. Anemia 6. Positive blood culture with CoANS , likely contamination 7. s/p CVA P 1. continue Zosyn 2. will have terminal extubation Subjective ROS Limited/Unobtainable: Yes Constitutional: Denies: fever Allergies: Coded Allergies: No Known Allergies (Unverified , 02/25/19) Objective Vital Signs Last 24 Hour Vital Signs Date Time Temp Pulse Resp B/P (MAP) Pulse Ox O2 Delivery O2 Flow Rate FiO2 03/06/19 12:00 98.2 79 21 131/63 (85) 100 03/06/19 12:00 40 03/06/19 10:54 77 22 40 03/06/19 09:08 80 26 40 03/06/19 08:55 77 03/06/19 08:51 76 134/55 03/06/19 08:00 Mechanical Ventilator 03/06/19 08:00 97.9 76 18 134/55 (81) 100 03/06/19 08:00 40 03/06/19 07:25 82 24 40 03/06/19 05:24 83 137/65 03/06/19 04:55 83 26 40 03/06/19 04:00 Mechanical Ventilator 03/06/19 04:00 98.2 81 16 137/67 (90) 100 03/06/19 04:00 40 03/06/19 03:59 84 03/06/19 03:30 85 26 40 03/06/19 01:11 75 25 40 03/06/19 00:00 Mechanical Ventilator 03/06/19 00:00 98.6 68 18 123/64 (83) 100 03/05/19 23:48 68 03/05/19 23:17 68 20 40 03/05/19 22:17 99.8 03/05/19 21:46 81 147/61 03/05/19 21:46 81 147/61 03/05/19 21:10 82 15 40 03/05/19 20:00 100.0 81 22 147/68 (94) 100 03/05/19 20:00 Mechanical Ventilator 03/05/19 20:00 40 03/05/19 19:20 79 03/05/19 18:55 80 27 40 03/05/19 16:52 81 25 40 03/05/19 16:40 82 03/05/19 16:00 125 03/05/19 15:50 40 03/05/19 15:49 Mechanical Ventilator 03/05/19 15:48 99.7 128 28 134/82 (99) 100 03/05/19 15:24 80 25 40 03/05/19 13:18 124 128/81 03/05/19 12:57 124 25 40 Height (Feet): 5 Height (Inches): 1.00 Weight (Pounds): 160 HEENT: status post trach Respiratory/Chest: lungs clear, other - on ventilator Cardiovascular: normal rate Abdomen: soft, non tender, other - GT & rectal tube Extremities: other - edema Neurologic/Psychiatric: other - opens eyes Current Medications Medications (Trade) Dose Ordered Sig/Oz Route PRN Reason Start Time Stop Time Status Last Admin Dose Admin Acetaminophen (Tylenol) 650 mg Q4H PRN GT Mild Pain/Temp > 100.5 02/25/19 07:00 03/27/19 06:59 03/05/19 21:47 Al Hydroxide/Mg Hydroxide (Mylanta) 30 ml Q4H PRN ORAL dyspepsia 02/25/19 07:45 03/27/19 07:44 Amiodarone HCl (Cordarone) 200 mg EVERY 8 HOURS GT 02/25/19 14:00 03/27/19 13:59 03/06/19 05:24 Amlodipine Besylate (Norvasc) 5 mg Q12HR GT 02/25/19 09:00 03/27/19 08:59 03/06/19 08:51 Ascorbic Acid (Vitamin C) 500 mg DAILY GT 02/25/19 09:00 03/27/19 08:59 03/06/19 08:51 Dextrose/Sodium Chloride 1,000 ml @ 30 mls/hr Q24H IV 02/27/19 07:15 03/29/19 07:14 03/06/19 07:44 Diltiazem HCl (Cardizem) 30 mg EVERY 8 HOURS ORAL 03/05/19 14:00 04/04/19 13:59 03/06/19 05:24 Hydralazine HCl (Apresoline) 10 mg Q6H PRN GT For High Blood Pressure 02/25/19 08:15 03/27/19 08:14 Iopamidol (Isovue-300 100ml) 100 ml NOW PRN INJ Radiology Procedure 02/25/19 00:15 Lansoprazole (Prevacid) 30 mg DAILY GT 02/25/19 09:00 03/27/19 08:59 03/06/19 08:51 Morphine Sulfate (Morphine Sulfate) 2 mg Q1H PRN IVP For Pain 03/05/19 13:00 03/12/19 12:59 03/05/19 21:48 Piperacillin Sod/ Tazobactam Sod 3.375 gm/Sodium Chloride 110 ml @ 27.5 mls/hr Q8HR IVPB 02/25/19 14:00 03/08/19 13:59 03/06/19 05:24 Parth Wells MD Mar 06, 2019 12:35
[2019-03-06] MEDS: Morphine Sulfate 2mg/ml Inj(IV/IM USE ONLY) IVP PRN (14:07)
[2019-03-06 16:00] VITALS: BP 127/61
[2019-03-06 20:00] VITALS: BP 128/59
[2019-03-07] VITALS (7 sets, daily range): BP systolic 106–159; BP diastolic 57–83
[2019-03-07] MEDS: dilTIAZem HCl 30mg tab ORAL SCH ×3 (05:25→21:20)
[2019-03-07] MEDS: Piperacillin/Tazobactam 3.375 GM in NS 110 ML IVPB SCH ×3 (05:26→21:20)
[2019-03-07] MEDS: Amiodarone 200mg tab GT SCH ×3 (05:26→21:20)
[2019-03-07] MEDS: D5 1/2NS 1,000 ML IV SCH (08:09)
--- NOTE | 2019-03-07 09:02 | Pulmonology Progress Note ---
Assessment/Plan Assessment/Plan Impression: Abdominal abscess, s/p drain UTI (urinary tract infection) Abdominal distension Pneumonia Hypertension Atrial fibrillation with RVR Respiratory failure Gtube/trach Urogenital implant Decubitus ulcers moderated PCM toxic metabolic encephalopathy possible sepsis VRE leukocytosis PLAN off vent family still wants other meds check labs in am ? snf discharge for palliative care prognosis poor d/w family as to withdrawal of care- await family to arrive Adriano nurse present and will proceed with comfort care impression, plan, and exam edited and reviewed in detail care discussed with RN Subjective ROS Limited/Unobtainable: Yes Allergies: Coded Allergies: No Known Allergies (Unverified , 02/25/19) Subjective care noted and reviewed family present yesterday off vent today Objective Last 24 Hour Vital Signs Date Time Temp Pulse Resp B/P (MAP) Pulse Ox O2 Delivery O2 Flow Rate FiO2 03/07/19 08:00 99.9 119 24 106/57 (73) 99 03/07/19 08:00 6.0 28 03/07/19 06:49 100 T-Piece 6.0 03/07/19 05:25 127 143/64 03/07/19 04:00 T-piece 03/07/19 04:00 99.5 89 16 143/66 (91) 99 03/07/19 04:00 6.0 28 03/07/19 03:54 113 03/07/19 03:30 97 T-Piece 6.0 28 03/07/19 00:00 98.8 74 16 132/61 (84) 99 03/07/19 00:00 T-piece 03/06/19 23:30 83 03/06/19 21:01 77 128/59 03/06/19 21:01 77 128/59 03/06/19 21:00 6.0 28 03/06/19 20:00 T-piece 03/06/19 20:00 98.2 77 18 128/59 (82) 100 03/06/19 19:37 85 03/06/19 19:30 96 T-Piece 6.0 28 03/06/19 16:55 84 03/06/19 16:00 6.0 28 03/06/19 16:00 98.2 83 20 127/61 (83) 98 03/06/19 16:00 T-piece 9/1/19 14:47 80 131/63 03/06/19 14:37 98.2 03/06/19 14:17 80 03/06/19 14:10 89 26 03/06/19 12:57 82 24 40 03/06/19 12:00 98.2 79 21 131/63 (85) 100 03/06/19 12:00 Mechanical Ventilator 03/06/19 12:00 40 03/06/19 10:54 77 22 40 03/06/19 09:08 80 26 40 Intake and Output 03/06/19 03/07/19 19:00 07:00 Intake Total 890 ml 1075.0 ml Output Total 700 ml 1000 ml Balance 190 ml 75.0 ml Free Water 200 ml 230 ml IV Total 150 ml 350.0 ml Tube Feeding 540 ml 495 ml Output Urine Total 700 ml 1000 ml Objective WDWN NAD on trach collar ALOC clear breath sounds bilaterally without rhonchi or wheeze S1S2 iRR tachy without MRG NABS nontender no HSM; some distention; Gt no CC some edema nonfocal reduced LOC bedbound Microbiology Date/Time Source Procedure Growth Status 03/05/19 16:35 Blood Blood Culture - Preliminary NO GROWTH AFTER 24 HOURS Resulted 03/05/19 16:30 Blood Blood Culture - Preliminary NO GROWTH AFTER 24 HOURS Resulted 03/05/19 14:03 Indwelling Cath Urine Culture - Preliminary YEAST Resulted Current Medications Medications (Trade) Dose Ordered Sig/Oz Route PRN Reason Start Time Stop Time Status Last Admin Dose Admin Acetaminophen (Tylenol) 650 mg Q4H PRN GT Mild Pain/Temp > 100.5 02/25/19 07:00 03/27/19 06:59 03/05/19 21:47 Al Hydroxide/Mg Hydroxide (Mylanta) 30 ml Q4H PRN ORAL dyspepsia 02/25/19 07:45 03/27/19 07:44 Amiodarone HCl (Cordarone) 200 mg EVERY 8 HOURS GT 02/25/19 14:00 03/27/19 13:59 03/07/19 05:26 Amlodipine Besylate (Norvasc) 5 mg Q12HR GT 02/25/19 09:00 03/27/19 08:59 03/06/19 21:01 Ascorbic Acid (Vitamin C) 500 mg DAILY GT 02/25/19 09:00 03/27/19 08:59 03/06/19 08:51 Dextrose/Sodium Chloride 1,000 ml @ 30 mls/hr Q24H IV 02/27/19 07:15 03/29/19 07:14 03/07/19 08:09 Diltiazem HCl (Cardizem) 30 mg EVERY 8 HOURS ORAL 03/05/19 14:00 04/04/19 13:59 03/07/19 05:25 Hydralazine HCl (Apresoline) 10 mg Q6H PRN GT For High Blood Pressure 02/25/19 08:15 03/27/19 08:14 Iopamidol (Isovue-300 100ml) 100 ml NOW PRN INJ Radiology Procedure 02/25/19 00:15 Lansoprazole (Prevacid) 30 mg DAILY GT 02/25/19 09:00 03/27/19 08:59 03/06/19 08:51 Morphine Sulfate (Morphine Sulfate) 2 mg Q1H PRN IVP For Pain 03/05/19 13:00 03/12/19 12:59 03/06/19 14:07 Piperacillin Sod/ Tazobactam Sod 3.375 gm/Sodium Chloride 110 ml @ 27.5 mls/hr Q8HR IVPB 02/25/19 14:00 03/08/19 23:59 03/07/19 05:26 Kike Lr MD Mar 07, 2019 09:02
[2019-03-07] MEDS: Ascorbic Acid 500mg tab GT SCH (10:02)
--- NOTE | 2019-03-07 10:57 | Infectious Diseases Prog Note ---
Assessment/Plan Assessment/Plan antibiotics : zosyn A 1. retroperitoneal abscess s/p CT guided drainage with VRE 2. hypertension 3. atrial fibrillation 4. respiratory failure 5, increased leucocytosis 6. fungal UTI P 1. continue zosyn 2. start fluconazole 3. will follow up cultures Subjective ROS Limited/Unobtainable: Yes Allergies: Coded Allergies: No Known Allergies (Unverified , 02/25/19) Objective Vital Signs Last 24 Hour Vital Signs Date Time Temp Pulse Resp B/P (MAP) Pulse Ox O2 Delivery O2 Flow Rate FiO2 03/07/19 10:03 117 122/68 03/07/19 08:00 99.9 119 24 106/57 (73) 99 03/07/19 08:00 6.0 28 03/07/19 08:00 123 03/07/19 08:00 T-piece 6.0 03/07/19 06:49 100 T-Piece 6.0 03/07/19 05:25 127 143/64 03/07/19 04:00 T-piece 03/07/19 04:00 99.5 89 16 143/66 (91) 99 03/07/19 04:00 6.0 28 03/07/19 03:54 113 03/07/19 03:30 97 T-Piece 6.0 28 03/07/19 00:00 98.8 74 16 132/61 (84) 99 03/07/19 00:00 T-piece 03/06/19 23:30 83 03/06/19 21:01 77 128/59 03/06/19 21:01 77 128/59 03/06/19 21:00 6.0 28 03/06/19 20:00 T-piece 03/06/19 20:00 98.2 77 18 128/59 (82) 100 03/06/19 19:37 85 03/06/19 19:30 96 T-Piece 6.0 28 03/06/19 16:55 84 03/06/19 16:00 6.0 28 03/06/19 16:00 98.2 83 20 127/61 (83) 98 03/06/19 16:00 T-piece 03/06/19 14:47 80 131/63 03/06/19 14:37 98.2 03/06/19 14:17 80 03/06/19 14:10 89 26 03/06/19 12:57 82 24 40 03/06/19 12:00 98.2 79 21 131/63 (85) 100 03/06/19 12:00 Mechanical Ventilator 03/06/19 12:00 40 Height (Feet): 5 Height (Inches): 1.00 Weight (Pounds): 160 HEENT: status post trach Respiratory/Chest: lungs clear Cardiovascular: normal rate, regular rhythm, no gallop/murmur Abdomen: soft, non tender, other - GT Extremities: no edema Microbiology Date/Time Source Procedure Growth Status 03/05/19 16:35 Blood Blood Culture - Preliminary NO GROWTH AFTER 24 HOURS Resulted 03/05/19 16:30 Blood Blood Culture - Preliminary NO GROWTH AFTER 24 HOURS Resulted 03/05/19 14:03 Indwelling Cath Urine Culture - Preliminary YEAST Resulted Current Medications Medications (Trade) Dose Ordered Sig/Oz Route PRN Reason Start Time Stop Time Status Last Admin Dose Admin Acetaminophen (Tylenol) 650 mg Q4H PRN GT Mild Pain/Temp > 100.5 02/25/19 07:00 03/27/19 06:59 03/05/19 21:47 Al Hydroxide/Mg Hydroxide (Mylanta) 30 ml Q4H PRN ORAL dyspepsia 02/25/19 07:45 03/27/19 07:44 Amiodarone HCl (Cordarone) 200 mg EVERY 8 HOURS GT 02/25/19 14:00 03/27/19 13:59 03/07/19 05:26 Amlodipine Besylate (Norvasc) 5 mg Q12HR GT 02/25/19 09:00 03/27/19 08:59 03/07/19 10:03 Ascorbic Acid (Vitamin C) 500 mg DAILY GT 02/25/19 09:00 03/27/19 08:59 03/07/19 10:02 Dextrose/Sodium Chloride 1,000 ml @ 30 mls/hr Q24H IV 02/27/19 07:15 03/29/19 07:14 03/07/19 08:09 Diltiazem HCl (Cardizem) 30 mg EVERY 8 HOURS ORAL 03/05/19 14:00 04/04/19 13:59 03/07/19 05:25 Hydralazine HCl (Apresoline) 10 mg Q6H PRN GT For High Blood Pressure 02/25/19 08:15 03/27/19 08:14 Iopamidol (Isovue-300 100ml) 100 ml NOW PRN INJ Radiology Procedure 02/25/19 00:15 Lansoprazole (Prevacid) 30 mg DAILY GT 02/25/19 09:00 03/27/19 08:59 03/07/19 10:02 Morphine Sulfate (Morphine Sulfate) 2 mg Q1H PRN IVP For Pain 03/05/19 13:00 03/12/19 12:59 03/06/19 14:07 Piperacillin Sod/ Tazobactam Sod 3.375 gm/Sodium Chloride 110 ml @ 27.5 mls/hr Q8HR IVPB 02/25/19 14:00 03/08/19 23:59 03/07/19 05:26 Anusha Tomas MD Mar 07, 2019 10:57
[2019-03-07] MEDS ORDERED: Fluconazole 100mg tab ORAL ONE (12:00)
--- NOTE | 2019-03-07 13:51 | Surgery Progress Note ---
Surgery Progress Note Subjective Symptoms: other Objective Last 24 Hour Vital Signs Date Time Temp Pulse Resp B/P (MAP) Pulse Ox O2 Delivery O2 Flow Rate FiO2 03/07/19 13:39 87 144/66 03/07/19 12:49 99 T-Piece 6.0 03/07/19 12:00 T-piece 6.0 03/07/19 12:00 88 03/07/19 12:00 6.0 28 03/07/19 11:59 99.1 89 18 145/73 (97) 100 03/07/19 10:03 117 122/68 03/07/19 08:00 99.9 119 24 106/57 (73) 99 03/07/19 08:00 6.0 28 03/07/19 08:00 123 03/07/19 08:00 T-piece 6.0 03/07/19 06:49 100 T-Piece 6.0 03/07/19 05:25 127 143/64 03/07/19 04:00 T-piece 03/07/19 04:00 99.5 89 16 143/66 (91) 99 03/07/19 04:00 6.0 28 03/07/19 03:54 113 03/07/19 03:30 97 T-Piece 6.0 03/07/19 00:00 98.8 74 16 132/61 (84) 99 03/07/19 00:00 T-piece 03/06/19 23:30 83 03/06/19 21:01 77 128/59 03/06/19 21:01 77 128/59 03/06/19 21:00 6.0 28 03/06/19 20:00 T-piece 03/06/19 20:00 98.2 77 18 128/59 (82) 100 03/06/19 19:37 85 03/06/19 19:30 96 T-Piece 6.0 28 03/06/19 16:55 84 03/06/19 16:00 6.0 28 03/06/19 16:00 98.2 83 20 127/61 (83) 98 03/06/19 16:00 T-piece 03/06/19 14:47 80 131/63 03/06/19 14:37 98.2 03/06/19 14:17 80 03/06/19 14:10 89 26 I&O Intake and Output 03/06/19 03/07/19 19:00 07:00 Intake Total 890 ml 1150.0 ml Output Total 700 ml 1000 ml Balance 190 ml 150.0 ml Free Water 200 ml 230 ml IV Total 150 ml 380.0 ml Tube Feeding 540 ml 540 ml Output Urine Total 700 ml 1000 ml Dressing: other Wound: other Drains: other Cardiovascular: RSR Respiratory: decreased breath sounds Abdomen: soft, other Extremities: no cyanosis, other Plan Problems: (1) Abdominal distension Assessment & Plan: The colon is mostly distended with gas and fluid with areas of normal caliber, no definite obstructive lesion. There is diffuse marked distention of the small bowel with free communication of the distended distal small bowel lumen with the colon lumen. Findings are presumably functional in nature, as no obstructive lesion or transition point is demonstrated Evidence of prior proximal colectomy with ileocolic anastomosis Right lower quadrant retroperitoneal collection, with a pigtail drainage catheter at the cephalad aspect, consistent with a recently drained abscess. There may be a small amount of residual material within the collection Basilar or parenchymal atelectatic changes and possible consolidation Hepatic cyst. Hepatic subcentimeter low-attenuation lesions which are too small to characterize, most likely benign simple cysts. Other findings as noted, including gastrostomy, Abdi catheter, degenerative spondylosis (2) Abdominal abscess Assessment & Plan: will cont with IV abx therapy will discuss with IR about another catheter in remaining cavity repeat CT with / Impression: Improved position of drainage catheter within right retroperitoneal pelvic fluid collection previously to represent an abscess. The upper portion appears completely drained. There is still a small amount residual fluid within the inferior portion of the collection 14 mm masslike opacity in the right middle lobe, seen only on prior study the current exam. Not seen previously but suspect not included on the prior imaging volume. Consider chest CT for better characterization if clinically indicated Decreased but persistent small bowel distention, as compared to the prior exam. Presumably functional in nature, as ingested contrast has traversed the entirety of the large and small bowel indicating absence of anatomic obstruction Bilateral basal pulmonary parenchymal atelectasis and consolidation and possibly scarring, also evident previously Findings: Completion image demonstrates satisfactory position of the new drainage catheter note that the inferior aspect of the collection could not be accessed. However, it is not clear that this either represents fluid, is represents scar tissue. Impression: Successful replacement of right retroperitoneal collection drainage catheter, placed slightly deeper into the collection and previously. Only a scant amount of bloody fluid aspirated. The specimen was sent to the lab (3) Decubitus skin ulcer Assessment & Plan: Pt presented on admission with open DTPI sacrum. Multiple open wounds within base of wound with trace amt of slough at sacrococcygeal area ,surrounding dark and indurated borders.Non-blanching erythema periwound. (L) 7cm x (W)7.5cm x (D)0.2cm. Non-blanchable erythema without induration/fluctuance R and L heels. Skin Assessed under trach collar. Erythema noted to R side of neck but skin is otherwise intact. Tx.Plan: Cleanse Sacral wound with saline. Apply Therahoney. Apply Moisture Barrier Paste periwound. Cover with Optifoam drsg. Change every 3 days and prn. Apply Cavilon Skin Barrier to both heels.Cover with Optifoam drsg.Change every 7 days and prn. APM/CHELSEA Mattress overlay. Reposition at least every 2hours and prn. Off-load heels with pillow. Junior Stone Mar 07, 2019 13:51
[2019-03-07] MEDS: Acetaminophen 650mg/20.3ml GT PRN (20:20)
[2019-03-08] VITALS: BP 135/61
[2019-03-08 04:00] VITALS: BP 151/81
[2019-03-08 05:05] LABS: HEMATOCRIT 32.5 % (37.0-47.0); HEMOGLOBIN 10.3 G/DL (12.0-16.0); MEAN CORPUSCULAR VOLUME 90 FL (80-99); PLATELET COUNT 14 K/UL (150-450); RED BLOOD COUNT 3.61 M/UL (4.20-5.40); RED CELL DISTRIBUTION WIDTH 16.4 % (11.6-14.8); WHITE BLOOD COUNT 16.8 K/UL (4.8-10.8)
[2019-03-08] MEDS: dilTIAZem HCl 30mg tab ORAL SCH ×2 (05:14→13:59)
[2019-03-08] MEDS: Piperacillin/Tazobactam 3.375 GM in NS 110 ML IVPB SCH (05:14)
[2019-03-08] MEDS: Amiodarone 200mg tab GT SCH ×2 (05:15→13:59)
[2019-03-08 05:21] LABS: ANION GAP 13 mmol/L (5-15); BLOOD UREA NITROGEN 15 mg/dL (7-18); CALCIUM 9.1 MG/DL (8.5-10.1); CARBON DIOXIDE 23 MMOL/L (21-32); CHLORIDE 115 MMOL/L (98-107); CREATININE 0.8 MG/DL (0.55-1.30); POTASSIUM 3.5 MMOL/L (3.5-5.1); SODIUM 151 MMOL/L (136-145)
[2019-03-08] MEDS: D5 1/2NS 1,000 ML IV SCH (07:44)
[2019-03-08 08:00] VITALS: BP 163/94
--- NOTE | 2019-03-08 08:14 | Pulmonology Progress Note ---
Assessment/Plan Assessment/Plan Impression: Abdominal abscess, s/p drain UTI (urinary tract infection) Abdominal distension Pneumonia Hypertension Atrial fibrillation with RVR Respiratory failure Gtube/trach Urogenital implant Decubitus ulcers moderated PCM toxic metabolic encephalopathy possible sepsis VRE leukocytosis PLAN off vent family still wants other meds labs noted antibiotics noted snf discharge for palliative care prognosis poor d/w family as to withdrawal of meds Adriano nurse present and will proceed with comfort care impression, plan, and exam edited and reviewed in detail care discussed with RN Subjective Allergies: Coded Allergies: No Known Allergies (Unverified , 02/25/19) Subjective care noted and reviewed no distress off vent today Objective Last 24 Hour Vital Signs Date Time Temp Pulse Resp B/P (MAP) Pulse Ox O2 Delivery O2 Flow Rate FiO2 03/08/19 07:24 99 T-Piece 6.0 28 03/08/19 05:14 96 151/81 03/08/19 04:00 T-piece 03/08/19 04:00 6.0 28 03/08/19 04:00 99.5 96 28 151/81 (104) 100 03/08/19 04:00 82 03/08/19 00:15 100 T-Piece 6.0 28 03/08/19 00:00 99.3 77 28 135/61 (85) 100 03/08/19 00:00 T-piece 03/07/19 23:28 79 03/07/19 21:20 83 143/83 03/07/19 20:50 100.0 03/07/19 20:30 100.1 83 26 143/83 (103) 98 03/07/19 20:20 82 143/83 03/07/19 20:00 6.0 28 03/07/19 20:00 T-piece 03/07/19 20:00 101.7 92 22 155/78 (103) 98 03/07/19 19:41 100 T-Piece 6.0 28 03/07/19 19:22 87 03/07/19 16:00 6.0 28 03/07/19 16:00 T-piece 6.0 03/07/19 16:00 79 03/07/19 16:00 99.3 96 19 159/77 (104) 99 03/07/19 13:39 87 144/66 03/07/19 12:49 99 T-Piece 6.0 28 03/07/19 12:00 T-piece 6.0 03/07/19 12:00 88 03/07/19 12:00 6.0 28 03/07/19 11:59 99.1 89 18 145/73 (97) 100 03/07/19 10:03 117 122/68 Intake and Output 03/07/19 03/08/19 19:00 07:00 Intake Total 940.0 ml 1783.58 ml Output Total 1535 ml 1700 ml Balance -595.0 ml 83.58 ml Free Water 100 ml 100 ml IV Total 325.0 ml 1188.58 ml Tube Feeding 495 ml 495 ml Other 20 ml Output Urine Total 1125 ml 1100 ml Stool Total 400 ml 600 ml Other 10 ml Objective WDWN NAD on trach collar ALOC clear breath sounds bilaterally without rhonchi or wheeze S1S2 iRR rate controlled without MRG NABS nontender no HSM; some distention; Gt no CC some edema nonfocal reduced LOC but in no distress bedbound Microbiology Date/Time Source Procedure Growth Status 03/05/19 16:35 Blood Blood Culture - Preliminary NO GROWTH AFTER 48 HOURS Resulted 03/05/19 16:30 Blood Blood Culture - Preliminary NO GROWTH AFTER 48 HOURS Resulted 03/07/19 19:50 Sputum Received 03/05/19 14:03 Indwelling Cath Urine Culture - Final Marilee Albicans Complete Laboratory Tests 03/08/19 03:20: White Blood Count 16.8H, Red Blood Count 3.61L, Hemoglobin 10.3L, Hematocrit 32.5L, Mean Corpuscular Volume 90, Mean Corpuscular Hemoglobin 28.6, Mean Corpuscular Hemoglobin Concent 31.8L, Red Cell Distribution Width 16.4H, Platelet Count 14L, Mean Platelet Volume , Neutrophils (%) (Auto) , Lymphocytes (%) (Auto) , Monocytes (%) (Auto) , Eosinophils (%) (Auto) , Basophils (%) (Auto ) , Differential Total Cells Counted 100, Neutrophils % (Manual) 68, Lymphocytes % (Manual) 22, Monocytes % (Manual) 9, Eosinophils % (Manual) 1, Basophils % (Manual) 0, Band Neutrophils 0, Platelet Estimate DecreasedL, Platelet Morphology Normal, Hypochromasia 1+, Anisocytosis 1+, Sodium Level 151H , Potassium Level 3.5, Chloride Level 115H, Carbon Dioxide Level 23, Anion Gap 13, Blood Urea Nitrogen 15, Creatinine 0.8, Estimat Glomerular Filtration Rate , Glucose Level 131H, Calcium Level 9.1 Current Medications Medications (Trade) Dose Ordered Sig/Oz Route PRN Reason Start Time Stop Time Status Last Admin Dose Admin Acetaminophen (Tylenol) 650 mg Q4H PRN GT Mild Pain/Temp > 100.5 02/25/19 07:00 03/27/19 06:59 03/07/19 20:20 Al Hydroxide/Mg Hydroxide (Mylanta) 30 ml Q4H PRN ORAL dyspepsia 02/25/19 07:45 03/27/19 07:44 Amiodarone HCl (Cordarone) 200 mg EVERY 8 HOURS GT 02/25/19 14:00 03/27/19 13:59 03/08/19 05:15 Amlodipine Besylate (Norvasc) 5 mg Q12HR GT 02/25/19 09:00 03/27/19 08:59 03/07/19 20:20 Ascorbic Acid (Vitamin C) 500 mg DAILY GT 02/25/19 09:00 03/27/19 08:59 03/07/19 10:02 Dextrose/Sodium Chloride 1,000 ml @ 30 mls/hr Q24H IV 02/27/19 07:15 03/29/19 07:14 03/08/19 07:44 Diltiazem HCl (Cardizem) 30 mg EVERY 8 HOURS ORAL 03/05/19 14:00 04/04/19 13:59 03/08/19 05:14 Hydralazine HCl (Apresoline) 10 mg Q6H PRN GT For High Blood Pressure 02/25/19 08:15 03/27/19 08:14 Iopamidol (Isovue-300 100ml) 100 ml NOW PRN INJ Radiology Procedure 02/25/19 00:15 Lansoprazole (Prevacid) 30 mg DAILY GT 02/25/19 09:00 03/27/19 08:59 03/07/19 10:02 Morphine Sulfate (Morphine Sulfate) 2 mg Q1H PRN IVP For Pain 03/05/19 13:00 03/12/19 12:59 03/06/19 14:07 Piperacillin Sod/ Tazobactam Sod 3.375 gm/Sodium Chloride 110 ml @ 27.5 mls/hr Q8HR IVPB 02/25/19 14:00 03/08/19 23:59 03/08/19 05:14 Kike Lr MD Mar 08, 2019 08:14
[2019-03-08] MEDS: Ascorbic Acid 500mg tab GT SCH (09:13)
--- NOTE | 2019-03-08 10:50 | Infectious Diseases Prog Note ---
Assessment/Plan Assessment/Plan antibiotics : zosyn A 1. retroperitoneal abscess s/p CT guided drainage with VRE 2. hypertension 3. atrial fibrillation 4. respiratory failure 5, leucocytosis improving 6. fungal UTI 7. thrombocytopenia P 1. d.c zosyn 2. start daptomycin 3. continue fluconazole 4. will follow up cultures Subjective ROS Limited/Unobtainable: Yes Allergies: Coded Allergies: No Known Allergies (Unverified , 02/25/19) Objective Vital Signs Last 24 Hour Vital Signs Date Time Temp Pulse Resp B/P (MAP) Pulse Ox O2 Delivery O2 Flow Rate FiO2 03/08/19 09:13 77 163/94 03/08/19 08:00 T-piece 03/08/19 08:00 6.0 28 03/08/19 08:00 99.7 77 17 163/94 (117) 100 03/08/19 07:51 89 03/08/19 07:24 99 T-Piece 6.0 28 03/08/19 05:14 96 151/81 03/08/19 04:00 T-piece 03/08/19 04:00 6.0 28 03/08/19 04:00 99.5 96 28 151/81 (104) 100 03/08/19 04:00 82 03/08/19 00:15 100 T-Piece 6.0 28 03/08/19 00:00 99.3 77 28 135/61 (85) 100 03/08/19 00:00 T-piece 03/07/19 23:28 79 03/07/19 21:20 83 143/83 03/07/19 20:50 100.0 03/07/19 20:30 100.1 83 26 143/83 (103) 98 03/07/19 20:20 82 143/83 03/07/19 20:00 6.0 28 03/07/19 20:00 T-piece 03/07/19 20:00 101.7 92 22 155/78 (103) 98 03/07/19 19:41 100 T-Piece 6.0 28 03/07/19 19:22 87 03/07/19 16:00 6.0 28 03/07/19 16:00 T-piece 6.0 03/07/19 16:00 79 03/07/19 16:00 99.3 96 19 159/77 (104) 99 03/07/19 13:39 87 144/66 03/07/19 12:49 99 T-Piece 6.0 28 03/07/19 12:00 T-piece 6.0 03/07/19 12:00 88 03/07/19 12:00 6.0 28 03/07/19 11:59 99.1 89 18 145/73 (97) 100 Height (Feet): 5 Height (Inches): 1.00 Weight (Pounds): 160 HEENT: status post trach Respiratory/Chest: lungs clear Cardiovascular: normal rate, regular rhythm, no gallop/murmur Abdomen: soft, non tender, other - GT Extremities: other - + edema Microbiology Date/Time Source Procedure Growth Status 03/05/19 16:35 Blood Blood Culture - Preliminary NO GROWTH AFTER 48 HOURS Resulted 03/05/19 16:30 Blood Blood Culture - Preliminary NO GROWTH AFTER 48 HOURS Resulted 03/07/19 19:50 Sputum Received 03/05/19 14:03 Indwelling Cath Urine Culture - Final Marilee Albicans Complete Laboratory Tests Test 03/08/19 03:20 White Blood Count 16.8 K/UL (4.8-10.8) H Red Blood Count 3.61 M/UL (4.20-5.40) L Hemoglobin 10.3 G/DL (12.0-16.0) L Hematocrit 32.5 % (37.0-47.0) L Mean Corpuscular Volume 90 FL (80-99) Mean Corpuscular Hemoglobin 28.6 PG (27.0-31.0) Mean Corpuscular Hemoglobin Concent 31.8 G/DL (32.0-36.0) L Red Cell Distribution Width 16.4 % (11.6-14.8) H Platelet Count 14 K/UL (150-450) L Mean Platelet Volume FL (6.5-10.1) Neutrophils (%) (Auto) % (45.0-75.0) Lymphocytes (%) (Auto) % (20.0-45.0) Monocytes (%) (Auto) % (1.0-10.0) Eosinophils (%) (Auto) % (0.0-3.0) Basophils (%) (Auto) % (0.0-2.0) Differential Total Cells Counted 100 Neutrophils % (Manual) 68 % (45-75) Lymphocytes % (Manual) 22 % (20-45) Monocytes % (Manual) 9 % (1-10) Eosinophils % (Manual) 1 % (0-3) Basophils % (Manual) 0 % (0-2) Band Neutrophils 0 % (0-8) Platelet Estimate Decreased L Platelet Morphology Normal Hypochromasia 1+ Anisocytosis 1+ Sodium Level 151 MMOL/L (136-145) H Potassium Level 3.5 MMOL/L (3.5-5.1) Chloride Level 115 MMOL/L (98-107) H Carbon Dioxide Level 23 MMOL/L (21-32) Anion Gap 13 mmol/L (5-15) Blood Urea Nitrogen 15 mg/dL (7-18) Creatinine 0.8 MG/DL (0.55-1.30) Estimat Glomerular Filtration Rate mL/min (>60) Glucose Level 131 MG/DL (74-106) H Calcium Level 9.1 MG/DL (8.5-10.1) Current Medications Medications (Trade) Dose Ordered Sig/Oz Route PRN Reason Start Time Stop Time Status Last Admin Dose Admin Acetaminophen (Tylenol) 650 mg Q4H PRN GT Mild Pain/Temp > 100.5 02/25/19 07:00 03/27/19 06:59 03/07/19 20:20 Al Hydroxide/Mg Hydroxide (Mylanta) 30 ml Q4H PRN ORAL dyspepsia 02/25/19 07:45 03/27/19 07:44 Amiodarone HCl (Cordarone) 200 mg EVERY 8 HOURS GT 02/25/19 14:00 03/27/19 13:59 03/08/19 05:15 Amlodipine Besylate (Norvasc) 5 mg Q12HR GT 02/25/19 09:00 03/27/19 08:59 03/08/19 09:13 Ascorbic Acid (Vitamin C) 500 mg DAILY GT 02/25/19 09:00 03/27/19 08:59 03/08/19 09:13 Dextrose/Sodium Chloride 1,000 ml @ 30 mls/hr Q24H IV 02/27/19 07:15 03/29/19 07:14 03/08/19 07:44 Diltiazem HCl (Cardizem) 30 mg EVERY 8 HOURS ORAL 03/05/19 14:00 04/04/19 13:59 03/08/19 05:14 Hydralazine HCl (Apresoline) 10 mg Q6H PRN GT For High Blood Pressure 02/25/19 08:15 03/27/19 08:14 Iopamidol (Isovue-300 100ml) 100 ml NOW PRN INJ Radiology Procedure 02/25/19 00:15 Lansoprazole (Prevacid) 30 mg DAILY GT 02/25/19 09:00 03/27/19 08:59 03/08/19 09:13 Morphine Sulfate (Morphine Sulfate) 2 mg Q1H PRN IVP For Pain 03/05/19 13:00 03/12/19 12:59 03/06/19 14:07 Piperacillin Sod/ Tazobactam Sod 3.375 gm/Sodium Chloride 110 ml @ 27.5 mls/hr Q8HR IVPB 02/25/19 14:00 03/08/19 23:59 03/08/19 05:14 Anusha Tomas MD Mar 08, 2019 10:50
[2019-03-08] MEDS ORDERED: Fluconazole 100mg tab ORAL SCH (11:00)
[2019-03-08 12:00] VITALS: BP 161/78
[2019-03-08] MEDS ORDERED: Fluconazole 100mg tab GT ONE (12:00)
[2019-03-08] MEDS ORDERED: NS IV SCH (12:00)
[2019-03-08] MEDS ORDERED: DAPTOMYCIN IV SCH (12:00)
[2019-03-08 13:59] VITALS: BP 161/78
[2019-03-08] MEDS ORDERED: Sterile Water Irrig 1000ml IRRIG ONE (14:23)
[2019-03-08] MEDS ORDERED: D5 1/2NS 1000ml IV ONE (14:23)
[2019-03-08] MEDS ORDERED: NS 275ml ONE (14:23)
[2019-03-08] MEDS ORDERED: Tubing IV Secondary IV ONE (14:23)
--- NOTE | 2019-03-08 18:33 | Surgery Progress Note ---
Surgery Progress Note Subjective Additional Comments no acute events labs ntoed plan for comfort care d/c planning Objective Last 24 Hour Vital Signs Date Time Temp Pulse Resp B/P (MAP) Pulse Ox O2 Delivery O2 Flow Rate FiO2 03/08/19 13:59 95 161/78 03/08/19 13:59 161/78 03/08/19 13:50 99 T-Piece 6.0 28 03/08/19 12:00 99.4 95 18 161/78 (105) 100 03/08/19 12:00 T-piece 03/08/19 09:13 77 163/94 03/08/19 08:00 T-piece 03/08/19 08:00 6.0 28 03/08/19 08:00 99.7 77 17 163/94 (117) 100 03/08/19 07:51 89 03/08/19 07:24 99 T-Piece 6.0 28 03/08/19 05:14 96 151/81 03/08/19 04:00 T-piece 03/08/19 04:00 6.0 28 03/08/19 04:00 99.5 96 28 151/81 (104) 100 03/08/19 04:00 82 03/08/19 00:15 100 T-Piece 6.0 28 03/08/19 00:00 99.3 77 28 135/61 (85) 100 03/08/19 00:00 T-piece 03/07/19 23:28 79 03/07/19 21:20 83 143/83 03/07/19 20:50 100.0 03/07/19 20:30 100.1 83 26 143/83 (103) 98 03/07/19 20:20 82 143/83 03/07/19 20:00 6.0 28 03/07/19 20:00 T-piece 03/07/19 20:00 101.7 92 22 155/78 (103) 98 03/07/19 19:41 100 T-Piece 6.0 28 03/07/19 19:22 87 I&O Intake and Output 03/07/19 03/08/19 19:00 07:00 Intake Total 940.0 ml 1783.58 ml Output Total 1535 ml 1700 ml Balance -595.0 ml 83.58 ml Free Water 100 ml 100 ml IV Total 325.0 ml 1188.58 ml Tube Feeding 495 ml 495 ml Other 20 ml Output Urine Total 1125 ml 1100 ml Stool Total 400 ml 600 ml Other 10 ml Dressing: dry Wound: clean Cardiovascular: RSR Respiratory: decreased breath sounds Abdomen: soft, present bowel sounds, other Extremities: no cyanosis, other Laboratory Tests Test 03/08/19 03:20 White Blood Count 16.8 K/UL (4.8-10.8) H Red Blood Count 3.61 M/UL (4.20-5.40) L Hemoglobin 10.3 G/DL (12.0-16.0) L Hematocrit 32.5 % (37.0-47.0) L Mean Corpuscular Volume 90 FL (80-99) Mean Corpuscular Hemoglobin 28.6 PG (27.0-31.0) Mean Corpuscular Hemoglobin Concent 31.8 G/DL (32.0-36.0) L Red Cell Distribution Width 16.4 % (11.6-14.8) H Platelet Count 14 K/UL (150-450) L Mean Platelet Volume FL (6.5-10.1) Neutrophils (%) (Auto) % (45.0-75.0) Lymphocytes (%) (Auto) % (20.0-45.0) Monocytes (%) (Auto) % (1.0-10.0) Eosinophils (%) (Auto) % (0.0-3.0) Basophils (%) (Auto) % (0.0-2.0) Differential Total Cells Counted 100 Neutrophils % (Manual) 68 % (45-75) Lymphocytes % (Manual) 22 % (20-45) Monocytes % (Manual) 9 % (1-10) Eosinophils % (Manual) 1 % (0-3) Basophils % (Manual) 0 % (0-2) Band Neutrophils 0 % (0-8) Platelet Estimate Decreased L Platelet Morphology Normal Hypochromasia 1+ Anisocytosis 1+ Sodium Level 151 MMOL/L (136-145) H Potassium Level 3.5 MMOL/L (3.5-5.1) Chloride Level 115 MMOL/L (98-107) H Carbon Dioxide Level 23 MMOL/L (21-32) Anion Gap 13 mmol/L (5-15) Blood Urea Nitrogen 15 mg/dL (7-18) Creatinine 0.8 MG/DL (0.55-1.30) Estimat Glomerular Filtration Rate mL/min (>60) Glucose Level 131 MG/DL (74-106) H Calcium Level 9.1 MG/DL (8.5-10.1) Plan Problems: (1) Abdominal distension Assessment & Plan: The colon is mostly distended with gas and fluid with areas of normal caliber, no definite obstructive lesion. There is diffuse marked distention of the small bowel with free communication of the distended distal small bowel lumen with the colon lumen. Findings are presumably functional in nature, as no obstructive lesion or transition point is demonstrated Evidence of prior proximal colectomy with ileocolic anastomosis Right lower quadrant retroperitoneal collection, with a pigtail drainage catheter at the cephalad aspect, consistent with a recently drained abscess. There may be a small amount of residual material within the collection Basilar or parenchymal atelectatic changes and possible consolidation Hepatic cyst. Hepatic subcentimeter low-attenuation lesions which are too small to characterize, most likely benign simple cysts. Other findings as noted, including gastrostomy, Abdi catheter, degenerative spondylosis (2) Abdominal abscess Assessment & Plan: will cont with IV abx therapy will discuss with IR about another catheter in remaining cavity repeat CT with / Impression: Improved position of drainage catheter within right retroperitoneal pelvic fluid collection previously to represent an abscess. The upper portion appears completely drained. There is still a small amount residual fluid within the inferior portion of the collection 14 mm masslike opacity in the right middle lobe, seen only on prior study the current exam. Not seen previously but suspect not included on the prior imaging volume. Consider chest CT for better characterization if clinically indicated Decreased but persistent small bowel distention, as compared to the prior exam. Presumably functional in nature, as ingested contrast has traversed the entirety of the large and small bowel indicating absence of anatomic obstruction Bilateral basal pulmonary parenchymal atelectasis and consolidation and possibly scarring, also evident previously Findings: Completion image demonstrates satisfactory position of the new drainage catheter note that the inferior aspect of the collection could not be accessed. However, it is not clear that this either represents fluid, is represents scar tissue. Impression: Successful replacement of right retroperitoneal collection drainage catheter, placed slightly deeper into the collection and previously. Only a scant amount of bloody fluid aspirated. The specimen was sent to the lab (3) Decubitus skin ulcer Assessment & Plan: Pt presented on admission with open DTPI sacrum. Multiple open wounds within base of wound with trace amt of slough at sacrococcygeal area ,surrounding dark and indurated borders.Non-blanching erythema periwound. (L) 7cm x (W)7.5cm x (D)0.2cm. Non-blanchable erythema without induration/fluctuance R and L heels. Skin Assessed under trach collar. Erythema noted to R side of neck but skin is otherwise intact. Tx.Plan: Cleanse Sacral wound with saline. Apply Therahoney. Apply Moisture Barrier Paste periwound. Cover with Optifoam drsg. Change every 3 days and prn. Apply Cavilon Skin Barrier to both heels.Cover with Optifoam drsg.Change every 7 days and prn. APM/CHELSEA Mattress overlay. Reposition at least every 2hours and prn. Off-load heels with pillow. Additional Comments okay to d/c drain care and management not ready for drain removal prayers with patient and family time of note does not reflect when patient seen Junior Stone Mar 08, 2019 18:33
--- NOTE | 2019-03-09 08:18 | Discharge Summary ---
Discharge Summary Discharge Summary _ DATE OF ADMISSION: 02/25/2019 DATE OF DISCHARGE: 03/08/2019 DISCHARGED BY: Dr. Lr REASON FOR ADMISSION: 79 years old female with past medical history of hypertension, atrial fibrillation, chronic respiratory failure, ventilator dependent with tracheostomy status, dysphagia, G-tube, sacral pressure ulcer, presented to emergency department for fever and abdominal distention. Patient by herself was unable to provide any information due to medical condition Upon evaluation patient was tachypneic and had a low-grade fever. Laboratory work-up revealed leukocytosis with WBC 17.8, hemoglobin 11, hematocrit 33.7. Platelet count 485. Potassium 3.0. Stable renal parameters. Lactic acid 1.4. Troponin negative. pro BNP 349. EKG revealed sinus rhythm, no acute ischemic changes. Stable LFT. Urinalysis with evidence of probable UTI. Chest x-ray demonstrated bilateral interstitial disease, could be on the basis of senescent changes and fibrosis, but could also indicate pulmonary edema or atypical pneumonia. Tracheostomy. CT of the abdomen and pelvis revealed colon distended with gas and fluid with areas of normal caliber, no definite obstructive lesion. There was diffuse marked distention of the small bowel with free communication of the distended distal small bowel lumen with the colon lumen. Findings were presumably functional in nature, as no obstructive lesion or transition point was demonstrated Evidence of prior proximal colectomy with ileocolic anastomosis. Right lower quadrant retroperitoneal collection, with a pigtail drainage catheter at the cephalad aspect, consistent with a recently drained abscess. Possibly a small amount of residual material within the collection. Basilar or parenchymal atelectatic changes and possible consolidation In the emergency department patient pancultured ,started on empiric antibiotic and IV fluids. Potassium was replaced. Patient admitted to direct observational unit for further management. CONSULTANTS: pulmonary Dr. Lr ID specialist Dr. Tomas surgery Dr. Stone [facility] COURSE: Patient admitted to direct observational unit. Ventilator support and tracheostomy care provided. Pulmonary toilet provided. ABG was stable on current ventilator settings. [employer] closely followed. Antibiotic provided as per ID specialist recommendation. Patient undergone CT-guided drainage of abdominal abscess later that day, on . Only scant amount of bloody fluid was aspirated and sent to the lab for analysis. Drainage catheter was replaced i slightly deeper into the collection than previously. Next day patient spiked fever. Initial blood culture were negative. Urine culture was negative. Abdominal abscess culture revealed VRE and Staph coagulase negative. Antibiotic regimen optimized as per ID specialist directions. Patient continued to have leukocytosis and intermittent fevers. Repeated blood cultures showed 1 out of 4 Staph coagulase negative, likely contaminant as per ID specialist. Stool for C. difficile was negative. Repeated urine culture showed Marilee. Fluconazole was added to antibiotic regimen. Follow-up chest x-ray demonstrated patchy opacity in the left lung base , possibly representing atelectasis versus pneumonia. Patient completed course of Zosyn and started on daptomycin as per ID specialist recommendations along with the fluconazole. DVT and GI prophylaxis provided. Patient initially was on heparin , which stopped after platelet count started to trend down. DVT prophylaxis further provided with SCD. Patient noted to be in atrial fibrillation with rapid ventricular response. Rate was controlled with Cardizem . Patient later spontaneously converted to sinus rhythm. Strict aspiration precaution maintained. G-tube feeding started and continued with tube formula as per regional sales engineer recommendation. Dietary supplements provided as per regional sales engineer recommendations, who concluded that patient was at high nutritional risk. Wound care , for present on admission sacral decubitus ulcer , provided as per surgeon recommendation. Continue wound care at the facility. Supportive care provided. Pain management was addressed. Bowel regimen instituted. Extensive discussion was held with the family regarding further plans of care and poor prognosis. CODE STATUS was changed on 03/05 to DNR/DNI status. Family decided on comfort care and terminal extubation. Terminal extubation was done on 03/06. Patient was placed on cool aerosol 6 L for comfort with pulse oximetry reaching 100%. Family still wanted other medications. Patient condition continued to deteriorate. Patient still had significant leukocytosis and intermittent fevers. Platelet count dropped to 17. Overall prognosis was poor, which was further discussed with the family, to consider withdrawal of medication. Patient subsequently was discharged to subacute shelter facility for comfort focused care. FINAL DIAGNOSES: Sepsis Retroperitoneal abscess , status post CT-guided drainage with VRE Fungal UTI Pneumonia Chronic respiratory failure -ventilator dependent with tracheostomy status Leukocytosis Thrombocytopenia Atrial fibrillation with rapid ventricular response Sacral decubitus ulcer , present on admission History of CVA Dysphagia , feeding by G-tube Urogenital implant Toxic metabolic encephalopathy Moderate protein calorie malnutrition DISCHARGE MEDICATIONS: Refer to medication reconciliation list DISCHARGE INSTRUCTIONS: Patient was discharged to the shelter facility with comfort focused care. Follow up with medical doctor at the facility. I have been assigned to dictate discharge summary for this account. I was not involved in the patient's management. Talya Arriaza NP Mar 09, 2019 08:18
[2019-03-09] MEDS ORDERED: Fluconazole 100mg tab GT SCH (09:00)
== END 2019-03-08 14:24 | DRG 870 ==
LOC: EDBD 00:08 → EMR 00:52 → 2W 01:08 → EDBEDREQ 03:21
PROC: 0W9G30Z Drainage of Peritoneal Cavity with Drainage Device, Percutaneous Approach (ICD-10-PCS; principal; 2019-02-25)
PROC: 5A1955Z Respiratory Ventilation, Greater than 96 Consecutive Hours (ICD-10-PCS; principal; 2019-02-25)
DX: A41.9 Sepsis, unspecified organism (principal); K65.1 Peritoneal abscess; J18.9 Pneumonia, unspecified organism; G92 Toxic encephalopathy; J96.10 Chronic respiratory failure, unspecified whether with hypoxia or hypercapnia; E44.0 Moderate protein-calorie malnutrition; Z99.11 Dependence on respirator [ventilator] status; B37.49 Other urogenital candidiasis; D69.6 Thrombocytopenia, unspecified; I48.91 Unspecified atrial fibrillation; Z66 Do not resuscitate; R13.10 Dysphagia, unspecified; Z51.5 Encounter for palliative care; I10 Essential (primary) hypertension; Z93.0 Tracheostomy status; Z68.30 Body mass index [BMI] 30.0-30.9, adult; Z93.1 Gastrostomy status; L89.152 Pressure ulcer of sacral region, stage 2; L89.211 Pressure ulcer of right hip, stage 1; D64.9 Anemia, unspecified; Z86.73 Personal history of transient ischemic attack (TIA), and cerebral infarction without residual deficits
CPT/HCPCS: 36415; 36600; 71045; 74018; 74177; 75989; 80048; 80053; 80061; 80202; 81003; 82550; 82553; 82803; 82962; 83605; 83880; 84484; 85007; 85025; 85610; 85651; 85730; 86140; 87040; 87070; 87075; 87081; 87086; 87181; 87205; 87324; 93005; 94002; 94003; 94640; 94664; 96361; 96365; 96367; 99285; J2250; J7620; J8499